=== PATIENT | female | born 1945 | race Caucasian/White ===

== ENCOUNTER 2025-06-07 15:08 | Outpatient (AMB) | payer OTHER, SELFPAY ==
--- OUTSIDE RECORDS SUMMARY | 2025-06-02 23:59 | XMS_ITS | Continuity of Care Document ---
Author Organization [facility] Address [address] [place] [address]- Care Team Providers Care Cigarette Machine Operator Name Role Phone Luis Manuel VILLANUEVA, Latoya Travis Primary Care Physici an [id number] Date(s): 05/26/[facility] - 06/02/25 [facility] [address] [place] [address]- Encounter Diagnosis Open wound of heel(Discharge Diagnosis) - 05/26/25 Wound, open, abdominal wall, anterior(Discharge Diagnosis) - 05/26/25 Sacral ulcer(Discharge Diagnosis) - 05/26/25 Attending Physician: Latoya Issa NP Encounter Type: Office Visit Allergies, Adverse Reactions, Alerts Substance Criticality Severity Reaction Reaction Severity Status Latex Active Immunizations Given and Recorded Vaccine Date Status Refusal Reason RSV vaccine preF3, recombinant 09/18/23 Recorded influenza virus vaccine, inactivated 08/15/23 Teodoro rded influenza virus vaccine, inactivated 08/06/22 Teodoro rded influenza virus vaccine, inactivated 08/12/21 Teodoro rded influenza virus vaccine, inactivated 08/15/20 Teodoro rded influenza virus vaccine, inactivated 09/21/19 Give n SARS-CoV-2(COVID-19)mRNA-LNP vac([id number]) 08/14/23 Recorded tetanus/diphtheria/pertussis, acel(Tdap) 06/11/23 Recorded pneumococcal 20-valent conjugate vaccine 04/15/23 Given [id number] 12y+ bivalent booster vax 12/29/22 Recorded SARS-CoV-2 mRNA ([id number]) vax 06/08/22 Recorded SARS-CoV-2 (COVID-19) mRNA BNT-162b2 vac 08/30/21 Recorded SARS-CoV-2 (COVID-19) mRNA BNT-162b2 vac 02/12/21 Given SARS-CoV-2 (COVID-19) mRNA BNT-162b2 vac 02/12/21 Recorded SARS-CoV-2 (COVID-19) mRNA BNT-162b2 vac 01/22/21 Given SARS-CoV-2 (COVID-19) mRNA BNT-162b2 vac 01/22/21 Recorded Influenza Virus Vaccine (oldterm) 1 08/09/20 Recor ded 1Result Comment: [facility] Medications A+D topical ointment Topically, Daily, applied to lower extremities for dry skin, Maintenance, 03/31/25 8:12:00 PM EDT, Partial fill upon patient request if the prescription is for a schedule II opioid drug. Start Date: 03/31/25 Status: Ordered Repeat number: 1 acetaminophen 325 mg oral tablet 650 mg, 2, tablet, By Mouth, 3 times a day, PRN, Temperature Greater than 100.5, # 30 tablet, Refills 0, Tot. Refills 0, Maintenance, Pain , Mild, 04/08/25 10:23:00 AM EDT, Route to Pharmacy Electronically, [facility], Partial fill upon patient request if the prescription is for a schedule II opioid drug., 153, cm, 04/08/25 4:52:00 EDT, Height, 86, kg, 03/31/25 20:34:00 EDT, Dry Weight Start Date: 04/08/25 Status: Ordered Quantity: 30.0 Unit: tablet Repeat number: 1 atorvastatin 40 mg oral tablet 1 tablet, By Mouth, Daily at bedtime, # 90 tablet, 0 Refills, Maintenance, 05/08/25 9:47:00 PM EDT, [facility], 153, cm, 05/04/25 10:14:00 EDT, Height, 78.2, kg, 05/02/25 13:36:00 EDT, Dry Weight Start Date: 05/08/25 Status: Ordered Quantity: 90.0 Unit: tablet Repeat number: 1 bumetanide 1 mg oral tablet 2 mg, 2, tablet, By Mouth, Daily, Refills 0, Maintenance, 03/14/25 1:02:00 PM EDT, Partial fill upon patient request if the prescription is for a schedule II opioid drug. Start Date: 03/14/25 Status: Ordered Repeat number: 1 collagenase topical 250 u/gm ointment 1 application, Topically, Daily, apply to right heel and right and left lower abdominal wounds, # 90 Gm, 0 Refills, Maintenance, 04/08/25 2:12:00 PM EDT, Ointment, [facility], Partial fill upon patient request if the prescription is for a schedule II opioid drug., 1 application Topically Daily,Instr:apply to right heel and right and left lower abdominal wounds, 153, cm, 04/08/25 4:52:00 EDT, Height, 86, kg, 03/31/25 20:34:00 EDT, Dry Weight Start Date: 04/08/25 Status: Ordered Quantity: 90.0 Unit: g Repeat number: 1 Dakins Quarter Strength 0.125% topical solution APPLY EXTERNALLY ONCE DAILY TO RIGHT HEEL WOUND X 10 MINUTES WITH DRESSING CHANGE Start Date: 03/31/25 Status: Ordered Repeat number: 1 digoxin 0.125 mg oral tablet 1, tablet, By Mouth, Daily at bedtime, # 90 tablet, Refills 3, Maintenance, 08/08/24 10:30:00 AM EDT, Route to Pharmacy Electronically, [facility], 158, cm, 08/01/24 12:56:00 EDT, Height, 129.6, kg, 07/05/24 18:15:00 EDT, Dry Weight Start Date: 08/08/24 Status: Ordered Quantity: 90.0 Unit: tablet Repeat number: 1 Eliquis 5 mg oral tablet 1 tablet, By Mouth, 2 times a day, # 180 tablet, 3 Refills, Maintenance, 08/08/24 10:30:00 AM EDT, [facility], 158, cm, 08/01/24 12:56:00 EDT, Height, 129.6, kg, 07/05/24 18:15:00 EDT, Dry Weight Start Date: 08/08/24 Status: Ordered Quantity: 180.0 Unit: tablet Repeat number: 1 levothyroxine 0.1 mg oral tablet 1 tablet, By Mouth, Daily, # 90 tablet, 1 Refills, Maintenance, 08/27/24 11:23:00 AM EDT, [facility], 158, cm, 08/08/24 14:24:00 EDT, Height, 129.6, kg, 07/05/24 18:15:00 EDT, Dry Weight Start Date: 08/27/24 Status: Ordered Quantity: 90.0 Unit: tablet Repeat number: 1 lisinopril 5 mg oral tablet 5 mg, 1, tablet, By Mouth, Daily, # 30 tablet, Refills 0, Maintenance, 03/31/25 8:55:00 PM EDT, Partial fill upon patient request if the prescription is for a schedule II opioid drug. Start Date: 03/31/25 Status: Ordered Quantity: 30.0 Unit: tablet Repeat number: 1 metFORMIN 850 mg oral tablet 1 tablet = 850 mg, By Mouth, Daily at supper, Maintenance, 03/31/25 8:09:00 PM EDT, Tablet, Partial fill upon patient request if the prescription is for a schedule II opioid drug. Start Date: 03/31/25 Status: Ordered Repeat number: 1 metoprolol 50 mg oral tablet, extended release 50 mg, 1, tablet, By Mouth, Daily, # 90 tablet, Refills 3, Tot. Refills 3, Maintenance, 03/18/24 9:26:00 AM EDT, Route to Pharmacy Electronically, [facility], Partial fill upon patient request if the prescription is for a schedule II opioid drug., 153, cm, 03/03/24 13:49:00 EDT, Height, 112.6, kg, 01/28/24 14:46:00 EDT, Dry Weight Start Date: 03/18/24 Status: Ordered Quantity: 90.0 Unit: tablet Repeat number: 4 omeprazole 20 mg oral enteric coated capsule 1 capsule, By Mouth, Daily, # 90 capsule, 1 Refills, Maintenance, 05/08/25 9:47:00 PM EDT, [facility], 153, cm, 05/04/25 10:14:00 EDT, Height, 78.2, kg, 05/02/25 13:36:00 EDT, Dry Weight Start Date: 05/08/25 Status: Ordered Quantity: 90.0 Unit: capsule Repeat number: 2 Vashe Topical Solution 475 mL, Topically, Daily, 0 Refills, Maintenance, Solution Start Date: 04/08/25 Status: Ordered Repeat number: 1 zinc oxide 40% topical ointment 1 application, Topically, Daily, applied by wound care nurse, Maintenance, 03/31/25 8:11:00 PM EDT, Ointment, Partial fill upon patient request if the prescription is for a schedule II opioid drug. 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 Confirmed Active Hyperlipidemia Confirmed Active Hypertensive disorder Confirmed Active Hypothyroidism Confirmed Active Hypoxia Confirmed Active Obese class I Confirmed Active Wound, open, abdominal wall, anterior Confirmed Active Open wound of heel Confirmed Active Peripheral venous insufficiency Confirmed Active Pulmonary vascular congestion Confirmed Active Sacral ulcer Confirmed Active Type 2 diabetes mellitus Confirmed Active Diagnosis Diagnosis Type Effective Dates Health Status Cl inical Service Informant Open wound of heel Discharge Diagnosis 05/26/25 Wound, open, abdominal wall, anterior Discharge Diagnosis 05/26/25 Sacral ulcer Discharge Diagnosis 05/26/25 Social History Social History Type Response Smoking Status Never (less than 100 in lifetime) entered on: 09/21/19 Sex Sex Representation Female (finding) Note * Vahid Early: PERFORM Event Display: Patient Education/Instruction Authored Date: Ambulatory Adult Visit Summary [address] [address] Name: RAHEL HERNANDEZ : 1945?? Visit: 05/26/2025 09:53?? Ambulatory Visit Instructions ?? Your Care Team Primary Care Provider Latoya Issa NP? This Visit Provider Latoya Issa NP Your Diagnosis Open wound of heel Wound, open, abdominal wall, anterior Sacral ulcer Vitals Signs Height: 153 cm What to do next Scheduled Follow-Up Appointments 2024 1:15 PM EDT ?? With: Jayda LUNDBERG, Sheila Calixto Where: [facility] [address] [address] [place] [address]- Status: Pending Future Orders Basic Metabolic Panel - Routine, Once, 09/16/24 15:24:00 EST, Within 3 Days, [facility], Blood?? Vitamin B12 Level (B12 Vitamin Level) - Routine, Once, 03/14/25 12:50:00 EDT, Order for Today, [facility], Blood?? CBC - Routine, Once, 03/14/25 12:50:00 EDT, Single or Recurring Future Order, [facility], Blood?? Comprehensive Metabolic Panel - Routine, Once, 03/14/25 12:50:00 EDT, Order for Today, [facility], Blood?? Microalbumin Urine - Routine, Once, 03/14/25 12:50:00 EDT, Order for Today, [facility], Urine?? Vitamin D 25 Hydroxy Level - Routine, Once, 03/14/25 12:51:00 EDT, Order for Today, [facility], Blood?? TSH Rfx on Abnormal to Free T4 - Routine, Once, 03/14/25 12:51:00 EDT, Order for Today, [facility], Blood?? Ferritin - Routine, Once, 03/14/25 12:52:00 EDT, Order for Today, [facility], Blood?? Iron + Iron Binding Capacity - Routine, Once, 03/14/25 12:52:00 EDT, Order for Today, [facility], Blood?? CBC - Routine, Once, 06/01/25 3:00:00 EDT, Single or Recurring Future Order, [facility], Blood?? Comprehensive Metabolic Panel - Routine, Once, 06/01/25 3:00:00 EDT, Single or Recurring Future Order, [facility], Blood?? Sedimentation Rate - Routine, Once, 06/01/25 3:00:00 EDT, Single or Recurring Future Order, [facility], Blood?? C Reactive Protein (CRP) - Routine, Once, 06/01/25 3:00:00 EDT, Single or Recurring Future Order, [facility], Blood?? Medications The list below reflects the information in our records and provided by you today along with any changes made during this visit. Please continue your medications until treatment is completed or stopped by your provider. If this is different from the information you have or there are other questions,please contact the prescribing provider. What How Much When Instructions Unchanged Acetaminophen (acetaminophen 325 mg oral tablet) 2 tab(s) Oral 3 times a day as needed for Pain , Mild Temperature Greater than 100.5 ?? Unchanged apixaban (Eliquis 5 mg oral tablet) 1 tab(s) Oral Twice a day Unchanged Atorvastatin (atorvastatin 40 mg oral tablet) 1 tab(s) Oral Daily at Bedtime Unchanged Bumetanide (bumetanide 1 mg oral tablet) 2 tab(s) Oral Daily Unchanged Collagenase Topical (collagenase topical 250 u/ gm ointment) 1 michele Topically Daily apply to right heel and right and left lower abdominal wounds ?? Unchanged Digoxin (digoxin 0.125 mg oral tablet) 1 tab(s) Oral Daily at Bedtime Unchanged Emollients, Topical (Vashe Topical Solution) 475 Milliliter Topically Daily Unchanged Levothyroxine (levothyroxine 0.1 mg oral tablet) 1 tab(s) Oral Daily Unchanged Lisinopril (lisinopril 5 mg oral tablet) 1 tab(s) Oral Daily Unchanged Metformin (metFORMIN 850 mg oral tablet) 1 tab(s) Oral Daily at supper Unchanged Metoprolol (metoprolol 50 mg oral tablet, extended release) 1 tab(s) Oral Daily Unchanged Omeprazole (omeprazole 20 mg oral enteric coated capsule) 1 capsule Oral Daily Unchanged Sodium Hypochlorite Topical (Dakins Quarter Strength 0.125% topical solution) APPLY EXTERNALLY ONCE DAILY TO RIGHT HEEL WOUND X 10 MINUTES WITH DRESSING CHANGE ?? Unchanged Vitamin A & D Topical (A+D topical ointment) Topically Daily applied to lower extremities for dry skin ?? Unchanged Zinc Oxide Topical (zinc oxide 40% topical ointment) 1 michele Topically Daily applied by wound care nurse ?? Medications and Immunizations Administered Medications Given During Visit No medications given during this visit.?? Allergies (NKA means No Known Allergies) Latex Common Emergency Awareness Tips IS IT A STROKE? Act FAST and Check for these signs: FACE Does the face look uneven? ARM Does one arm drift down? SPEECH Does their speech sound strange? TIME Call at any sign of stroke ?? Heart Attack Signs Chest discomfort: Most heart attacks involve discomfort in the center of the chest and lasts more than a few minutes, or goes away and comes back. It can feel like uncomfortable pressure, squeezing, fullness or pain. Discomfort in upper body: Symptoms can include pain or discomfort in one or both arms, back, neck, jaw or stomach. Shortness of breath: With or without discomfort. Other signs: Breaking out in a cold sweat, nausea, or lightheaded. Remember, MINUTES DO MATTER. If you experience any of these heart attack warning signs, call to get immediate medical attention! ?? Smoking can increase your chances of developing chronic health problems and can cause harmful effects to other family members in your house. If you smoke, you are strongly encouraged to quit. Please call [facility] at [phone] or [phone] ([phone]) or log in to [email or web address] for referrals to smoking cessation programs. ?? The National Suicide Prevention Hotline is available 01/06 if you or someone you know needs to find a reason to keep living. By calling 2-460-269-Kuaidi Dache (4257) you'll be connected to a skilled, trained counselor at a crisis center in your area. [facility] Portal You can view and manage your care through the patient portal or by using a health care michele of your choosing. [employer] is a website that allows you to securely view your medical information including your hospital discharge summary, office visit summaries, medications and follow-up visits. You can also request appointments, renew medications, and request access to your medical information using a health care michele of your choosing, or just ask a question. You can enroll at [email or web address] or register during your next office visit. [facility], in keeping with [facility] guidance, no longer requires face masks for staff, patientsor visitors in most situations. Similiar to time spent indoors at other locations, there is the chance that you were exposed to repiratory viruses during your time with us (such as flu or COVID-19). If you develop symptoms concerning for a viral respiratory infection, please seek testing (and treatment if indicated) from your medical provider or home test kit. ?? Disclaimer: The information provided is of a general nature and is intended to be used in conjunction with the recommendations and advice of your health care practitioner. Every effort has been made to ensure that the information provided is accurate and complete at the time it is provided to you however, as your needs change, or, as new information becomes available, different or additional instructions may be required. ?? If you have questions, please consult with your primary care provider or pharmacist, as appropriate. This information is not intended to serve as substitution for assessment and evaluation by a qualified health care provider. If you do not have a primary care provider, you may find a [facility] provider by calling [facility] at [phone]. Patient Care team information Care Team Personnel Name: Zaire Taylor RN Position: [facility] RN Supv Member Role: Primary Care Nurse Name: Verónica Mike RN Position: S RN Member Role: Primary Care Nurse Name: Carmela Staples LPN Position: [facility] RN Member Role: Primary Care Nurse Name: Jaja Chow RN Position: [facility] RN Supv Member Role: Primary Care Nurse Name: Latoya Issa NP Position: [facility] PCO Associate Professional Member Role: PCP Address: [address] [place] [address] Telecom: Name: Navid Tate Position: [facility] RN Supv Member Role: Primary Care Nurse Name: Marylin Conn RN Position: [facility] RN Member Role: Primary Care Nurse Name: Coretta Castaneda [place] Position: [facility] ZAK Digital Media Representative Member Role: Skein Washer Care Team Related Persons Name: YONY FARRAR Name: LIOR FARRAR Name: GAVINO ROSALES Insurance Providers Guarantor name: [facility] Information #: 1 Payer: [employer] ADV HMO Payer Identifier: NA Member Number: [id number] Group Number: [id number] Subscriber Identifier: [id number] Relationship to Subscriber: self Coverage Type: Medicare HMO Coverage Verification Date: Telecom: NA Address:
--- OUTSIDE RECORDS SUMMARY | 2025-06-03 23:59 | XMS_ITS | Continuity of Care Document ---
Author Organization [facility] Address [address] [place] [address]- Care Team Providers Care Switch Technician Name Role Phone Luis Manuel GEOPHYSICAL COMPUTER, Latoya Travis Primary Care Physici [id number] Date[facility]s): [facility]/04[facility]25 - 06/03/25 [facility] [address] [place] [id number] Encounter Type: Triage Allergies, Adverse Reactions, Alerts Substance Criticality Severity [...] virus vaccine, inactivated 09/21/19 Give n SARS-CoV-2(COVID-19)mRNA-LNP vac([id number]) 08/14/23 Recorded tetanus/diphtheria/pertussis, acel(Tdap) 06/11/23 Recorded pneumococcal 20-valent conjugate vaccine 04/15/23 Given [id number] 12y+ bivalent booster vax 12/29/22 Recorded SARS-CoV-2 mRNA ([id number]) vax 06/08/22 Recorded SARS-CoV-2 (COVID-19) mRNA BNT-162b2 vac 08/30/21 Recorded SARS-CoV-2 (COVID-19) mRNA BNT-162b2 vac 02/12/21 Given SARS-CoV-2 (COVID-19) mRNA BNT-162b2 vac 02/12/21 Recorded SARS-CoV-2 (COVID-19) mRNA BNT-162b2 vac 01/22/21 Given SARS-CoV-2 (COVID-19) mRNA BNT-162b2 vac 01/22/21 Recorded Influenza Virus Vaccine (oldterm) 1 08/09/20 Recor ded 1Result Comment: [facility] Medications A+D topical ointment Topically, Daily, applied [...] 10:23:00 AM EDT, Route to Pharmacy Electronically, [facility], Partial fill upon patient request if [...] Refills, Maintenance, 04/08/25 2:12:00 PM EDT, Ointment, [facility], Partial fill upon patient request if [...] 10:30:00 AM EDT, Route to Pharmacy Electronically, [facility], 158, cm, 08/01/24 12:56:00 EDT, Height, 129.6, kg, 07/05/24 18:15:00 EDT, Dry Weight Start Date: 08/08/24 Status: Ordered Quantity: 90.0 Unit: tablet Repeat number: 1 Eliquis 5 mg oral tablet 1 tablet, By Mouth, 2 times a day, # 180 tablet, 3 Refills, Maintenance, 08/08/24 10:30:00 AM EDT, [facility], 158, cm, 08/01/24 12:56:00 EDT, Height, 129.6, kg, 07/05/24 18:15:00 EDT, Dry Weight Start Date: 08/08/24 Status: Ordered Quantity: 180.0 Unit: tablet Repeat number: 1 lisinopril 5 [...] 9:26:00 AM EDT, Route to Pharmacy Electronically, [facility], Partial fill upon patient request [...] 1 Refills, Maintenance, 05/08/25 9:47:00 PM EDT, [facility], 153, cm, 05/04/25 10:14:00 EDT, [...] Active History of heart failure Confirmed Active [facility] 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 Press Operator Coretta Castaneda [phone] Confirmed Active 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 Confirmed Active Hyperlipidemia Confirmed Active Hypertensive disorder Confirmed Active Hypothyroidism Confirmed Active Hypoxia Confirmed Active Obese class I Confirmed Active Wound, open, abdominal wall, anterior Confirmed Active Open wound of heel Confirmed Active Peripheral venous insufficiency Confirmed Active Pulmonary vascular congestion Confirmed Active Sacral ulcer Confirmed Active Type 2 diabetes mellitus Confirmed Active Social History Social History Type Response Smoking Status Never (less than 100 in lifetime) entered on: 09/21/19 Sex Sex Representation Female (finding) Patient Care team information Care Team Personnel Name: Zaire Taylor RN Position: S RN Supv Member Role: Primary Care Nurse Name: Verónica Mike RN Position: S RN Member Role: Primary Care Nurse Name: Carmela Staples LPN Position: S RN Member Role: Primary Care Nurse Name: Jaja Chow RN Position: [facility] RN Supv Member Role: Primary Care Nurse Name: Latoya Issa NP Position: [facility] PCO Associate Professional Member Role: PCP Address: [address] [place] [address] Telecom: Name: Navid Tate Position: [facility] RN Supv Member Role: Primary Care Nurse Name: Marylin Conn RN Position: S RN Member Role: Primary Care Nurse Name: Coretta Castaneda [place] Position: [facility] ZAK Stamp Press Operator Member Role: Pigment Processor Care Team Related Persons Name: YONY FARRAR Name: LIOR FARRAR Name: GAVINO ROSALES Insurance Providers Guarantor name: [facility] Information #: 1 Payer: [employer] MED[employer] ADV HMO Payer Identifier: Member Number: [id number] Group Number: [id number] Subscriber Identifier: [id number] Relationship to Subscriber: self Coverage Type: Medicare HMO Coverage Verification Date: NA Telecom: NA Address:
--- NOTE | 2025-06-07 15:18 | A.OFFPC_ITS ---
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 Intake Note: patient is scheduled for new patient visit to establish care with pcp Shipping Clerk/Admin Required: No Is last menstrual period known: No Post menopausal: Yes Patient : No Allergies No Known Allergies Allergy (Verified 06/07/25 15:22) Medication List - Last Reconciled 06/07/25 by David Cabrales MD apixaban (Eliquis) 5 mg PO BID atorvastatin 40 mg PO DAILY digoxin 125 mcg PO DAILY levothyroxine 100 mcg PO DAILY lisinopril 2.5 mg PO DAILY metformin 850 mg PO BID metoprolol succinate ER 50 mg PO DAILY omeprazole 20 mg PO DAILY sodium hypochlorite 0.125% (Dakin's Solution) topical DAILY Tobacco use date assessed: 06/07/25 Fall risk assessment: 2 + Falls in past year Last assessed Fall Risk: 06/07/25 Dental Screening Dental Screen Date: 06/07/25 Did you have a dental visit in the last 12 months?: No Did you have a dental problem in the last 6 months where you did not have access to dental care?: No Was dental information given to patient?: 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 ?? Prior PCP:? Dr Spangler, Dr Crowder in [facility] but she never saw him. Last office visit/CPE:?> 1 yr ago Acute issue(s):? ?? PMHx:? Cardiac valve abnormality, a-fib, HLD, Hypothyroidism, HTN, DM2, GERD SurgHx:?Bilat Hips SocHx:?Nonsmoker. etOH Holiday x 1. [facility] Medical History (Updated 06/07/25 @ 16:07 by Natalio Uriostegui) Osteoporosis Arthritis Diabetes High blood pressure Family History (Updated 06/07/25 @ 15:38 by Del Eastman [facility] Mother High blood pressure High cholesterol Cardiovascular disease Father High blood pressure Asthma Social History Housing: House Patient Tobacco Use Status: Never used Tobacco e-Cigarette/Vaping Use: Never Used Patient : No service: No Current occupational status: retired Cognitive needs: No Hearing needs: No Vision needs: Yes Questionnaire PHQ-9 Over the last 2 weeks, how often have you been bothered by any of the following problems? 1. Little interest or pleasure in doing things: not at all 2. Feeling down, depressed, or hopeless: not at all 3. Trouble falling or staying asleep, or sleeping too much: not at all 4. Feeling tired or having little energy: not at all 5. Poor appetite or overeating: not at all 6. Feeling bad about yourself - or that you are a failure or have let yourself or your family down: not at all 7. Trouble concentrating on things, such as reading the newspaper or watching television: not at all 8. Moving or speaking so slowly that other people could have noticed. Or the opposite - being so fidgety or restless that you have been moving around a lot more than usual: not at all 9. Thoughts that you would be better off or of hurting yourself in some way: not at all Total score: 0 Depression Screening Interpretation: Negative Depression Screening Done: Yes 18859 - PHQ-9 Billing: Yes Source: Developed by Drs. Dorian Sanchez, Gloria Peraza, Rahul Dumnot and colleagues, with an educational racheal from [employer]. Thrive Questionnaire Date Thrive assessed: 06/07/25 I am a: Patient What is your living situation today?: I have a steady place to live Within the past 12 months, did the food you bought not last and you didn't have the money to get more?: Never true Within the past 12 months, did you worry whether your food would run out before you got money to buy more?: Never true Do you have trouble paying for medicines?: No Do you have trouble getting transportation to medical appointments?: No Do you have trouble paying your heating and electricity bill?: No Do you have trouble taking care of your child, family member or friend?: I choose not to answer this question Do you have trouble with day-to-day activities such as bathing, preparing meals, shopping, managing finances, etc.?: I choose not to answer this question Are you currently unemployed and looking for a job?: No Are you interested in more education?: No Please select the resources that you would like help with: None Currently or been in a relationship where the following occur: No concerns reported THRIVE Score: 0 AUDIT C Alcohol Use Questionnaire (AUDIT-C) 1. How often do you have a drink containing alcohol?: Never Total Score: 0 Score Reviewed/Action Taken: Yes SANGEETA-7 AMB Questionnaire SANGEETA-7 Date SANGEETA - 7 assessed: 06/07/25 Feeling nervous, anxious, or on edge: 0 = Not at all Not being able to stop or control worryin = Not at all Worrying too much about different things: 0 = Not at all Trouble relaxin = Not at all Being so restless that it is hard to sit still: 0 = Not at all Becoming easily annoyed or irritable: 0 = Not at all Feeling afraid as if something awful might happen: 0 = Not at all Total SANGEETA-7 score (0-4 normal; 5-9 mild; 10-14 moderate; 15-21 severe): 0 Source: Developed by Drs. Dorian Sanchez, Gloria Peraza, Rahul Dumont and colleagues, with an educational racheal from [employer]. SANGEETA-7 Assessment Billing SANGEETA-7 Assessment Tool: SANGEETA-7 Assessment 24493 Review of Systems Const Denies chills, Denies fatigue, Denies fever(s), Denies headache(s) and Denies weakness ENT Denies dizziness and Denies headache(s) Card Denies chest pain, Denies lightheadedness, Denies dyspnea and Denies other (Palpitations) Resp Denies cough, Denies dyspnea, Denies wheezing and Denies other ( shortness of breath) Musc Denies numbness and Denies tingling Neuro Denies dizziness, Denies headache(s), Denies numbness, Denies tingling, Denies paresthesias and Denies weakness Psych Denies anxiety and Denies depression Endo Denies fatigue Aller/Immun Denies wheezing Physical exam (Primary Care) Vital Signs: Last Vital Signs Temp 97.4 F 06/07/25 15:25 Pulse 95 06/07/25 15:25 Resp 14 06/07/25 15:25 BP 110/66 06/07/25 15:25 Pulse Ox 97 06/07/25 15:25 Oxygen Delivery Method Room Air 06/07/25 15:25 BMI result Body Mass Index 33.2 Tobacco/Smoking Status: Tobacco use Status Tobacco use date assessed 06/07/25 06/07/25 15:27 Patient Tobacco Use Status Never used Tobacco 06/07/25 15:27 e-Cigarette/Vaping Use Never Used 06/07/25 15:27 PHQ-9: PHQ-9 Score PHQ-9: Total score 0 06/07/25 15:27 Depression Screening Interpretation: Negative Thrive Assessment: Date of Thrive Assessment Date Thrive assessed 06/07/25 06/07/25 15:27 Currently or been in a relationship where the following occur: No concerns repor beverly Const General: no acute distress and well developed Nutritional Appearance: well nourished Orientation/consciousness: patient oriented x3 HENMT Head: Yes normocephalic and Yes atraumatic Eyes General: appearance normal, both eyes and all related structures Pupils: Equal, round and reactive pupils present EOM: EOMs intact bilaterally Resp Effort & Inspection: normal respiratory effort Auscultation: clear to auscultation bilaterally Cardio Rate: regular rate Rhythm: regular rhythm Heart sounds: S1 normal heart sound present, S2 normal heart sound present, no gallops, no murmurs and no rubs Neuro General: patient oriented x3 and gait normal Cranial nerves: Yes Equal, round and reactive pupils present Psych Affect: normal affect Coding Level of Care Code New Pt Level 3 (92700) Diagnoses High blood pressure I10 Diabetes E11.9 Hypothyroidism E03.9 GERD (gastroesophageal reflux disease) K21.9 Abnormal cardiac valve Q24.8 Afib I48.91 Laboratory exam ordered as part of routine general medical examination Z00.00 Additional Codes SANGEETA-7 Assessment Billing - SANGEETA-7 Assessment Tool: SANGEETA-7 Assessment 04447 ([id number]) PHQ-9 - 09800 - PHQ-9 Billing: Yes ([id number]) Assessment & Plan Assessment & Plan (1) High blood pressure: Code(s): I10 - Essential (primary) hypertension Category: Medical Plan: Blood pressure is well controlled. Goal is less than 140/90 Continue current medications (2) Diabetes: Code(s): E11.9 - Type 2 diabetes mellitus without complications Category: Medical Plan: A1c today 7.6%. She says her A1c was 6.5% about 6 months ago. Goal is around 7% and preferably as below 7%. She had stopped taking 1 of her doses of metformin She will resume metformin 850 mg b.i.d. if tolerated. Will recheck A1c at next visit (3) Hypothyroidism: Code(s): E03.9 - Hypothyroidism, unspecified Category: Medical Plan: She is taking levothyroxine 100 mcg daily. However, she says that she was given a new slightly higher dose which she has not begun yet. She was not sure of the exact dose. She says this was due to recent lab work showing that her thyroid hormone levels were all at a low. 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 She is on Eliquis and digoxin as well as metoprolol. She also says that she has a cardiac valve abnormality though she does not know what the diagnosis is. I do not have her records yet and will request these. Followed by Dr. Glass Continue medications as prescribed Follow-up with your it risk analyst Orders: Orders Comprehensive Gleason. Panel Fast Today Z00.00 - Encounter for general adult medical examination without abnormal findings Complete Blood Count Auto Diff Today Z00.00 - Encounter for general adult medical examination without abnormal findings UA CC w/rflx Micro + Cult Today Z00.00 - Encounter for general adult medical examination without abnormal findings Vitamin D 25-OH Total Today E55.9 - Vitamin D deficiency, unspecified Free T4 (Free Thyroxine) Today E03.9 - Hypothyroidism, unspecified LDL Cholesterol Direct Today E78.5 - Hyperlipidemia, unspecified Lipid Panel Today Z00.00 - Encounter for general adult medical examination without abnormal findings Microalbumin, Random (w Creat) Today I10 - Essential (primary) hypertension Vitamin B12 and Folate Today E53.8 - Deficiency of other specified B group vitamins Triiodothyronine T3 Total Today E03.9 - Hypothyroidism, unspecified Thyroid Stimulating Hormone Today E03.9 - Hypothyroidism, unspecified
[2025-06-07 15:25] VITALS: BP 110/66; PULSE 95; RESP 14; TEMP 36.3; O2SAT 97; BMI 33.2
--- OUTSIDE RECORDS SUMMARY | 2025-06-07 15:52 | XMS_ITS | Encounter Summary ---
Author Organization [id number] Address [address] [place] [address] Care Team Providers Care Media Services Coordinator Name Role Phone Stephanie Salas MD Primary Care Provider Encounter Details Date Type Department Care Team (Late st Contact Info) Description 02/10/2025 Lab Requisition [facility] - Main Lab [address] [place] [address] Jim Dominique MD [address] [place] [address] [address] [place], [address] Type 2 diabetes mellitus without complications (CMS/HCC V24, CMS/HCC V28); Heart failure, unspecified (CMS/HCC V24, CMS/HCC V28) Social History Tobacco Use Types Packs/Day Years Used Date Smoking Tobacco: Never Assessed Comments Unknown Sex and Gender Information Value Date Recorded Sex Assigned at Not on file Legal Sex Female 3:39 PM EDT Gender Identity Not on file Sexual Orientation Not on file documented as of this encounter Plan of Treatment Not on file documented as of this encounter Procedures Procedure Name Priority Date/Time Associated Diagnosis Comments COMPLETE BLOOD COUNT Routine 02/13/2025 6:29 AM EDT Type 2 diabetes mellitus without complications Heart failure, unspecified (CMS/HCC) BASIC METABOLIC PANEL Routine 02/13/2025 6:29 AM EDT Type 2 diabetes mellitus without complications Heart failure, unspecified (CMS/HCC) documented in this encounter Results * (ABNORMAL) Basic metabolic panel (02/13/2025 6:29 AM EDT) Sodium 137 133 - 145 mmol/L LAB CHEMISTRY METHOD 02/13/2025 10:36 AM EDT [facility] Potassium 3.6 3.5 - 5.5 mmol/L LAB CHEMISTRY METHOD 02/13/2025 10:36 AM [facility] Chloride 98 96 - 110 mmol/L LAB CHEMISTRY METHOD 02/13/2025 10:36 AM [facility] CO2 28 21 - 32 mmol/L LAB CHEMISTRY METHOD 02/13/2025 10:36 AM [facility] Anion Gap 11 3 - 11 LAB CHEMISTRY METHOD 02/13/2025 10:36 AM [facility] Glucose 110(H) 70 - 100 mg/dL LAB CHEMISTRY METHOD 02/13/2025 10:36 AM [facility] BUN 32(H) 5 - 25 mg/dL LAB CHEMISTRY METHOD 02/13/2025 10:36 AM [facility] Creatinine 0.67 0.50 - 1.10 mg/dL LAB CHEMISTRY METHOD 02/13/2025 10:36 AM [facility] eGFR 90 >=60 mL/min/1. 73m2 LAB CHEMISTRY METHOD 02/13/2025 10:36 AM [facility] Comment:Calculation based on the Chronic Kidney Disease Epidemiology Collaboration (CKD-EPI) equation refit without adjustment for race. BUN/Creatinine Ratio 47.8 LAB CHEMISTRY METHOD 02/13/2025 10:36 AM [facility] Calcium 8.9 8.5 - 10.5 mg/dL LAB CHEMISTRY METHOD 02/13/2025 10:36 AM [facility] Blood Venous blood specimen / Unknown Venipuncture / Unknown 02/13/2025 6:29 AM EDT 02/13/2025 9:54 AM EDT us Jim Dominique MD LAB BLOOD ORDERABLES Final Resul t [facility] [address] [place] [address], * (ABNORMAL) Complete blood count (02/13/2025 6:29 AM EDT) [facility] WBC 10.7 4.8 - 10.8 K/mcL LAB HEMETOLOGY METHOD 02/13/2025 10:07 AM [facility] RBC 3.50(L) 3.80 - 4.80 M/mcL LAB HEMETOLOGY METHOD 02/13/2025 10:07 AM [facility] Hemoglobin 10.8(L) 11.5 - 16.0 g/dL LAB HEMETOLOGY METHOD 02/13/2025 10:07 AM [facility] Hematocrit 34.4(L) 35.0 - 47.0 % LAB HEMETOLOGY METHOD 02/13/2025 10:07 AM [facility] MCV 97.7 79.0 - 98.0 FL LAB HEMETOLOGY METHOD 02/13/2025 10:07 AM [facility] MCH 30.7 27.0 - 32.0 pcg LAB HEMETOLOGY METHOD 02/13/2025 10:07 AM [facility] MCHC 31.4(L) 32.0 - 37.0 g/dL LAB HEMETOLOGY METHOD 02/13/2025 10:07 AM [facility] RDW 16.5(H) 11.0 - 15.0 % LAB HEMETOLOGY METHOD 02/13/2025 10:07 AM [facility] Platelets 361 130 - 400 K/mcL LAB HEMETOLOGY METHOD 02/13/2025 10:07 AM [facility] MPV 11.3(H) 7.0 - 11.0 FL LAB HEMETOLOGY METHOD 02/13/2025 10:07 AM [facility] NRBC 0.0 <1.0 % LAB HEMETOLOGY METHOD 02/13/2025 10:07 AM EDT [facility] NRBC Absolute 0.00 <0.10 K/mcL LAB HEMETOLOGY METHOD 02/13/2025 10:07 AM EDT [facility] Blood Venous blood specimen / Unknown Venipuncture / Unknown 02/13/2025 6:29 AM EDT 02/13/2025 9:54 AM EDT us Jim Dominique MD LAB BLOOD ORDERABLES Final Resul t [facility] [address] [place] [address], documented in this encounter Visit Diagnoses Diagnosis Type 2 diabetes mellitus without complications (CMS/HCC V24, CMS/HCC V28) Heart failure, unspecified (CMS/HCC V24, CMS/HCC V28) Heart failure, unspecified documented in this encounter Care Teams Media Services Coordinator Relationship Specialty Start Date End Date Stephanie Salas MD [address] [place] [id number] PCP - General Hospitalist Medicine 10/10/24 documented as of this encounter
--- OUTSIDE RECORDS SUMMARY | 2025-06-07 15:52 | XMS_ITS | Clinical Summary ---
Author Organization [facility] Address [address] [place] [address] Care Team Providers Care Ladies Locker Room Attendant Name Role Phone Unavailable Primary Care Provider Unavailabl e Social History Tobacco Use Types Packs/Day Years Used Date Smoking Tobacco: Never Assessed Sex and Gender Information Value Date Recorded Sex Assigned at Not on file Gender Identity Not on file Sexual Orientation Not on file Plan of Treatment Not on file
--- OUTSIDE RECORDS SUMMARY | 2025-06-07 15:53 | XMS_ITS | Clinical Summary ---
Author Organization [facility] Address [address] [place] [address] Care Team Providers Care Music Therapy Specialist Name Role Phone Unavailable Primary Care Provider Unavailabl e Social History Tobacco Use Types Packs/Day Years Used Date Smoking Tobacco: Never Assessed Comments Unknown Sex and Gender Information Value Date Recorded Sex Assigned at Not on file Legal Sex Female 2:40 PM EDT Gender Identity Not on file Sexual Orientation Not on file Plan of Treatment Health Maintenance Due Date Last Done Comments Hepatitis C Virus Screening 1945 DTaP/Tdap/Td Vaccines (1 - Tdap) 1966 Pneumococcal Vaccines 50+ (1 of 1 - PCV) 1997 Zoster (Shingles) Vaccine (1 of 2) 1997 RSV Vaccine 60 years and old er and Patients (1 - 1-dose 75+ series) 2022 COVID-19 Vaccine ( - 2023-2 5 season) 2024 Hepatitis B Vaccines Aged Out No long er eligible based on patient's age to complete this topic
--- OUTSIDE RECORDS SUMMARY | 2025-06-07 15:53 | XMS_ITS | Patient Health Record ---
Author Organization [facility] Address [address] [facility] [address] [place] [address] Care Team Providers Care Stonemason Name Role Phone Anitha NAGEL-Latoya Pereyra Primary Care Provid er Unavailable Imani Gaston Unavailable [phone] Dorota Fonseca Unavailable [phone] Marco Gonzalez Unavailable [phone] Allergies Allergen (clinical drug ingredient) Drug/Non Drug Allergy documented on EMR Reaction Allergy Type Onset Date Status Latex Latex Unknown Allergy Active Reason For Referral No Information Medications Medication SIG (Take, Route, Frequency, Duration) Notes Start Date End Date Status Santyl 250 UNIT/GM 1 application Externally Once a day; Duration: 30 days apply nickel thick layer to L abdominal wound daily wound size is 5x12.5x0.8 05/15/2025 09/11/2025 Active Levothyroxine Sodium 100 MCG 1 tablet Orally in the morning 01/18/2025 Active InterDry 10 x144 - as directed Externally daily; Duration: 28 days apply daily under abdominal fold Active Lisinopril 5 MG 1 tablet Orally Once a day 02/02/2025 Active Digoxin 125 MCG 1 tablet Orally Once a day 01/17/2025 Active metFORMIN HCl 850 MG 1 tablet Orally Onc e a day 01/17/2025 Active Acetaminophen 500 MG 2 tablets Orally 3 times a day 02/03/2025 Active Metoprolol Tartrate 50 MG 1 tablet Orally once a day 01/18/2025 Active Acetaminophen 325 MG 2 tablets Orally every 8 hrs As needed 02/01/2025 Active Multi-Vitamin/Minerals - 1 tablet Orally once a day 01/24/2025 Active Apixaban 5 MG 1 tablet Orally twice a day 01/17/2025 Active Omeprazole 20 MG 1 tablet Orally Once a day 01/18/2025 Active Atorvastatin Calcium 40 MG 1 tablet Orally at bedtime 01/17/2025 Active Senna 8.6 MG 1 tablet Orally Once a day As needed 01/17/2025 Active Bisacodyl 10 MG 1 suppository Rectal Once a day As needed 01/17/2025 Active Vitamin C 500 MG 1 tablet Orally Every other day 01/24/2025 Active Dakins (1/2 strength) 0.25 % 1 application Externally Once a day; Duration: 30 days apply dakins moistened gauze over santyl on L abdominal wound f/b DCDdaily 05/15/2025 07/14/2025 Active Bumetanide 1 MG 1 tablet Orally twice a day 01/17/2025 Active Diclofenac Sodium 1 % apply to left hip Externally twice a day 02/01/2025 Active Problems Problem Type SNOMED Code ICD Code Onset Dates Problem Status W/U Status Risk Notes Problem Skin ulcer associated with diabetes mellitus (868101196) 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) Active confirmed Problem Atrial fibrillation (79853930) Unspecified atrial fibrillation (I48.91) Active confirmed Problem Diastolic heart failure (887006757) Unspecified diastolic (congestive) heart failure (I50.30) Active confirmed Problem Peripheral vascular disease (629346097) Peripheral vascular disease, unspecified (I73.9) Active confirmed Problem Pressure injury of sacral region of back stage III (disorder) (69746500719004) Pressure ulcer of sacral region, stage 3 (L89.153) Active confirmed Problem Pressure injury of right buttock stage III (disorder) (55486196710162) Pressure ulcer of right buttock, stage 3 (L89.313) Active confirmed Problem Pressure injury of left buttock stage IV (disorder) (57186533735197) Pressure ulcer of left buttock, 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) Active confirmed Problem Unstageable pressure injury of right heel (disorder) (02794330880662288) Pressure ulcer of right heel, unstageable (L89.610) Active confirmed Problem Pressure injury of right heel stage IV (disorder) (45306063824689) Pressure ulcer of right heel, stage 4 (L89.614) Active confirmed Problem Chronic ulcer of lower extremity (14595803) Non-pressure chronic ulcer of other part of right lower leg limited to breakdown of skin (L97.811) Active confirmed Problem Chronic ulcer of skin of lower leg (disorder) (93512524095260539) Non-pressure chronic ulcer of other part of left lower leg limited to breakdown of skin (L97.821) Active confirmed Problem Non-pressure chronic ulcer of back with unspecified severity (L98.429) Active confirmed Problem Osteomyelitis of vertebra (060914037) Osteomyelitis of vertebra, sacral and sacrococcygeal region (M46.28) Active confirmed Problem Abnormal gait (46912219) Unsteadiness on feet (R26.81) Active confirmed Problem Weakness (02519871) Weakness (R53.1) Active con firmed Problem Abrasion of abdominal wall, subsequent encounter (S30.811D) Active confirmed Problem Unspecified open wound of left wrist, initial encounter (S61.036A) Active confirmed Problem Body mass index 40+ - severely obese (745022887) Body mass index [BMI] 40.0-44.9, adult (Z68.41) Active confirmed Problem Peripheral vascular disease (952304950) Peripheral vascular disease (I73.9) Active confirmed Problem Pressure injury, stage 3, unspecified location (L89.93) 05/08/20 25 Active confirmed Problem Venous insufficiency of leg (disorder) (749144809) Venous insufficiency (I87.2) Active confirmed Problem Gastroesophageal reflux disease (054367104) GERD (gastroesophageal reflux disease) (K21.9) Active confirmed Problem Hyperlipidemia (57023791) Hyperlipidemia (E78.5) Active confirmed Problem Obesity (161385606) Obesity (E66.9) Active conf irmed Problem Edema (85067621) Edema (R60.9) Active confirmed Problem Localized infection of skin AND/OR subcutaneous tissue (276444857) Local infection of skin and subcutaneous tissue (L08.9) Active confirmed Problem Dependence on wheelchair (220970336) Wheelchair 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) Active confirmed Problem Hypothyroidism (17800010) Hypothyroidism (E03.9) Active confirmed Problem Type 2 diabetes mellitus (40780528) Type 2 diabetes mellitus (E11.9) Active confirmed Vital Signs Heart Rate 76 /min 05/29/2025 Temperature 98.6 degrees Fahrenheit 05/29/2025 Respiratory Rate 18 /min 05/29/2025 Height-cm 152.4 cm 05/29/2025 Oximetry 96 % 05/29/2025 Blood pressure diastolic 82 mm Hg 05/29/2025 Weight-kg 78.93 kg 05/29/2025 Height 60 in 05/29/2025 Blood pressure systolic 138 mm Hg 05/29/2025 Weight 174 lbs 05/29/2025 BMI 33.98 kg/m2 05/29/2025 Encounters Encounter Location Date Provider Diagnosis [facility] [address] [address] 12/21/2024 Anzhela Savonina Pressure ulcer of right heel, unstageable L89.610 ; Pressure ulcer of left buttock, stage 4 L89.324 ; Type 2 diabetes mellitus with other skin ulcer E11.622 ; Wheelchair dependence Z99.3 ; Obesity E66.9 and Edema R60.[address] [facility] [address] [facility] [address] [place] [address] 01/10/2025 Anzhela Savonina Pressure ulcer of right heel, unstageable L89.610 ; Pressure ulcer of left buttock, stage 4 L89.324 ; Local infection of skin and subcutaneous tissue L08.9 ; Type 2 diabetes mellitus with other skin ulcer E11.622 ; Non-pressure chronic ulcer of other part of right lower leg limited to breakdown of skin L97.811 ; Non-pressure chronic ulcer of other part of left lower leg limited to breakdown of skin L97.821 ; Pressure ulcer of right buttock, stage 3 L89.313 ; Wheelchair dependence Z99.3 ; Venous insufficiency I87.2 ; Peripheral vascular disease I73.9 ; Obesity E66.9 ; Edema R60.[address] [facility] [address] [place] [address] 01/31/2025 Imani Gaston Pressure ulcer of right heel, stage 4 L89.614 ; Pressure ulcer of left buttock, stage 4 L89.324 ; Local infection of skin and subcutaneous tissue L08.9 ; Type 2 diabetes mellitus with other skin ulcer E11.622 ; Non-pressure chronic ulcer of other part of right lower leg limited to breakdown of skin L97.811 ; Non-pressure chronic ulcer of other part of left lower leg limited to breakdown of skin L97.821 ; Pressure ulcer of right buttock, stage 3 L89.313 ; Wheelchair dependence Z99.3 ; Venous insufficiency I87.2 ; Peripheral vascular disease I73.9 ; Obesity E66.9 ; Edema R60.9 ; Weakness R53.1 ; Pressure ulcer of sacral region, stage 3 L89.153 and Unspecified open wound of left wrist, initial encounter S61.502A [facility] [address] [place] [address] 2025 Imani Gaston Pressure ulcer of right heel, stage 4 L89.614 ; Pressure ulcer of left buttock, stage 4 L89.324 ; Local infection of skin and subcutaneous tissue L08.9 ; Type 2 diabetes mellitus with other skin ulcer E11.622 ; Non-pressure chronic ulcer of other part of right lower leg limited to breakdown of skin L97.811 ; Non-pressure chronic ulcer of other part of left lower leg limited to breakdown of skin L97.821 ; Pressure ulcer of right buttock, stage 3 L89.313 ; Wheelchair dependence Z99.3 ; Venous insufficiency I87.2 ; Peripheral vascular disease I73.9 ; Obesity E66.9 ; Edema R60.9 ; Weakness R53.1 and Pressure ulcer of sacral region, stage 3 L89.153 [facility] [address] [address] 03/15/2025 Imani Gaston Pressure ulcer of left buttock, stage 4 L89.324 ; Pressure ulcer of right heel, stage 4 L89.614 ; Local infection of skin and subcutaneous tissue L08.9 ; Type 2 diabetes mellitus with other skin ulcer E11.622 ; Wheelchair dependence Z99.3 ; Venous insufficiency I87.2 ; Peripheral vascular disease I73.9 ; Obesity E66.9 ; Edema R60.9 ; Weakness R53.1 and Pressure ulcer of sacral region, stage 3 L89.153 [facility] [address] [address] 03/22/2025 Imani Gaston Pressure ulcer of left buttock, stage 4 L89.324 ; Pressure ulcer of right heel, stage 4 L89.614 ; Local infection of skin and subcutaneous tissue L08.9 ; Type 2 diabetes mellitus with other skin ulcer E11.622 ; Wheelchair dependence Z99.3 ; Venous insufficiency I87.2 ; Peripheral vascular disease I73.9 ; Obesity E66.9 ; Edema R60.9 ; Weakness R53.1 and Abrasion of abdominal wall, subsequent encounter S30.811D [facility] [address] [address] 03/29/2025 Imanidarby Gaston Pressure ulcer of left buttock, stage 4 L89.324 ; Osteomyelitis of vertebra, sacral and sacrococcygeal region M46.28 ; Pressure ulcer of right heel, stage 4 L89.614 ; Local infection of skin and subcutaneous tissue L08.9 ; Type 2 diabetes mellitus with other skin ulcer E11.622 ; Wheelchair dependence Z99.3 ; Venous insufficiency I87.2 ; Peripheral vascular disease I73.9 ; Obesity E66.9 ; Edema R60.9 ; Weakness R53.1 and Abrasion of abdominal wall, subsequent encounter S30.811D [facility] [address] [address] 04/17/2025 Imanidarby Gaston Pressure ulcer of left buttock, stage 4 L89.324 ; Osteomyelitis of vertebra, sacral and sacrococcygeal region M46.28 ; Pressure ulcer of right heel, stage 4 L89.614 ; Local infection of skin and subcutaneous tissue L08.9 ; Type 2 diabetes mellitus with other skin ulcer E11.622 ; Wheelchair dependence Z99.3 ; Venous insufficiency I87.2 ; Peripheral vascular disease I73.9 ; Obesity E66.9 ; Edema R60.9 ; Weakness R53.1 and Abrasion of abdominal wall, subsequent encounter S30.811D [facility] [address] [address] 05/08/2025 Imanidarby Gaston Pressure ulcer of left buttock, stage 4 L89.324 ; Osteomyelitis of vertebra, sacral and sacrococcygeal region M46.28 ; Pressure ulcer of right heel, stage 4 L89.614 ; Local infection of skin and subcutaneous tissue L08.9 ; Type 2 diabetes mellitus with other skin ulcer E11.622 ; Wheelchair dependence Z99.3 ; Venous insufficiency I87.2 ; Peripheral vascular disease I73.9 ; Obesity E66.9 ; Edema R60.9 ; Weakness R53.1 ; Abrasion of abdominal wall, subsequent encounter S30.811D and Pressure injury, stage 3, unspecified location L89.[address] [facility] [address] [address] 05/15/2025 Imani Marilin Pressure ulcer of left buttock, stage 4 L89.324 ; Osteomyelitis of vertebra, sacral and sacrococcygeal region M46.28 ; Pressure ulcer of right heel, stage 4 L89.614 ; Local infection of skin and subcutaneous tissue L08.9 ; Type 2 diabetes mellitus with other skin ulcer E11.622 ; Wheelchair dependence Z99.3 ; Venous insufficiency I87.2 ; Peripheral vascular disease I73.9 ; Obesity E66.9 ; Edema R60.9 ; Weakness R53.1 ; Abrasion of abdominal wall, subsequent encounter S30.811D and Pressure injury, stage 3, unspecified location L89.[address] [facility] [address] [address] 05/29/2025 Imani Gaston Pressure ulcer of left buttock, stage 4 L89.324 ; Osteomyelitis of vertebra, sacral and sacrococcygeal region M46.28 ; Pressure ulcer of right heel, stage 4 L89.614 ; Local infection of skin and subcutaneous tissue L08.9 ; Type 2 diabetes mellitus with other skin ulcer E11.622 ; Wheelchair dependence Z99.3 ; Venous insufficiency I87.2 ; Peripheral vascular disease I73.9 ; Obesity E66.9 ; Edema R60.9 ; Weakness R53.1 ; Abrasion of abdominal wall, subsequent encounter S30.811D and Pressure injury, stage 3, unspecified location L89.[address] [facility] [address] [address] 03/30/2025 Imani [facility] [address] [address] 05/11/2025 Imani [facility] [address] [facility] [address] [place] [address] 12/16/2024 Marco Gonzalez [facility] [address] [address] 12/19/2024 Marco Gonzalez [facility] [address] [place] [address] 12/21/2024 Marco Gonzalez [facility] [address] [place] [address] 12/23/2024 Marco Gonzalez [facility] [address] [email or web address] [address] [place] [address] 01/02/2025 Marco Gonzalez [facility] [address] [place] [address] 01/04/2025 Marco Gonzalez [facility] [address] [place] [address] 01/04/2025 Anzhela Savonina [facility] [address] [place] [address] 01/10/2025 Anzhela Savonina [facility] [address] [place] [address] 01/10/2025 [facility] [address] [place] [address] 01/12/2025 Anzhela Savonina [facility] [address] [place] [address] 03/16/2025 Anzhela Savonina [facility] [address] [place] [address] 03/22/2025 Anzhela Savonina [facility] [address] [place] [address] 03/24/2025 Anzhela Savonina [facility] [address] [place] [address] 03/29/2025 Imani [place] [facility] [address] [place] [address] 04/17/2025 Imani [place] [facility] [address] [address] 04/25/2025 Imani Gaston [facility] [address] [place] [address] 04/26/2025 Imani Gaston [facility] [address] [place] [address] 05/01/2025 Imani Gaston Assessments Encounter Date Diagnosis (ICD Code) Assessment Notes Treatment Notes Treatment Clinical Notes Section Notes 12/21/2024 Pressure ulcer of left buttock, stage 4 (ICD-10 - L89.324) 12/21/2024 Pressure ulcer of right heel, unstageable (ICD-10 - L89.610) On exam, vital signs stable, afebrile, non-ill appearing, sitting in wheelchair, A&Ox3. I first examine the right heel unstageable pressure ulcer which is covered with firm eschar tissue, loose eschar tissue on the edges with purulent drainge, mild odor, no surrounding erythema, no warmth, no tenderness. I discussed the indication for debridement and she was agreeable to procedure. I performed debridement of the ulcer as outlined above. Ulcer was cleaned with Dakins, rinsed with saline and HFB was applied to the wound bed, zinc to periwound secured with dsd. I than examined the left buttock which is a stage 4 pressure ulcer with depth of 7+ CM, bone is close to surface however I believe it does still have a layer of tissue over it. Unable to visualize the wound bed however what I can visualize has granulated tissue with overlying slough, no surrounding erythema, no purulence, no odor. I performed debridement of this ulcer, cleaned with saline and HFB was applied to the wound bed, zinc to periwound secured with dsd. She tolerated the procedure well. Anna presents today for initial visit for treatment of a right heel unstageable pressure ulcer and a stage 4 pressure ulcer to the left buttock. She has no acute signs of infectious process today. I will begin Dakins soak for 10 minutes to both ulcers, rinse with saline, apply HFB to the wound bed, zinc to periwound secure with dsd. I discussed application of a wound vac to the left buttock and she was agreeable, I will order for VNA to begin therapy. I will order ABIs to evaluate her arterial flow. She requires a hospital bed with low air loss mattress as she is not able to get into her bed and is sitting on her buttocks most of the day/night which hinders wound healing. I will request OT evaluation. I had a lengthy discussion regarding the importance of pressure relief, frequent repositioning, floating heels, importance of high protein intake, tight glucose control. VNA will continue to assist with dressing changes 3 times weekly. Patient can not do weekly visits and requesting bi-weekly at this time. I spent 65 minutes of direct and indirect care of this patient reviewing records, gathering H&P, evaluation, formulating plan, education and documentation. I Dorota NAGEL-Roddy, examined, evaluated and treated the patient. Dr. Lorena Hernandez was available for any question or concerns that I may have had. 01/10/2025 Pressure ulcer of left buttock, stage 4 (ICD-10 - L89.324) 01/10/2025 Pressure ulcer of right heel, unstageable (ICD-10 - L89.610) On exam, vital signs stable, afebrile, laying in chair, A/Ox3, weak and deconditioned, requiring 2 person assistance to transfer from wheelchair into chair for evaluation. I first examine the right heel unstageable pressure ulcer which is covered with moist eschar tissue, loose eschar tissue on the edges with purulent drainge, malodorous, no surrounding erythema, no warmth, tender to touch. I discussed the indication for debridement and she was agreeable to procedure. I performed debridement of the ulcer as outlined above, cleaned the ulcer with saline and obtained a wound culture. Ulcer was covered with Dakins imed gauze followed by DSD. I than examined the bilateral legs. She has scattered superifical ruptured and intact blisters on BLE with surrounding mild erythema, weeping serous drainage, pitting edema +4. We cleaned the legs with saline and zinc was applied followed by dsd. I than examined the left buttock which is a stage 4 pressure ulcer with depth of 5 cm, bone is close to surface and new tunneling is present. Unable to visualize the wound bed however what I can visualize has granulated tissue with overlying slough, no surrounding erythema, no purulence, mild odor. She has 2 new stage 3 pressure ulcers on the left medial buttock and left lower buttock in the gluteal fold. There is old adherent stool noted around the rectum. I performed debridement of this ulcer, cleaned with saline and Aquacel ag was applied to the wound bed, zinc to periwound secured with dsd. She tolerated the procedure well. Anna presents today for a follow up visit for treatment of multiple pressure ulcers and new wounds on BLE and new stage 3 pressure ulcers on the buttocks as noted above. She is a complicated case due to her deconditioned state requiring assistance with all ADLs, multiple wounds, poor PO intake, and inability to monitor her blood sugars. The left heel is covered with moist malodorous eschar tissue with signs of infection for which a wound culture was obtained today. She has increasesd weeping in BLE with pitting edema, scattered superifical wounds with some intact blistering on BLE. She has deconditioned from last visit. She does not have the appropriate care at home and is sleeping in a wheelchair. She has poor nutrition. She developed new ulcers and previous ulcers are detoriating with signs of infection. Both the left heel and right buttock wounds are close to bone and I would like to obtain a CT scan however due to patients weakness and trouble with tranportation, this is not feasible to obtain outpatient. I am concerned for infection and concerned with her living condition and lack of assistance with ADLS. I had a lengthy discussion with patient regarding my concerns and strongly advised the patient to go to the hospital. She adamently refused to go to the hospital today however did state that she will go tomorrow. Her friend Robles who is present in the room has also tried to convince the patient however was unsuccessful. She does need labs, CT scan of the left buttock and right heel ulcers to rule out osteomyelitis and antibiotics. We obtained ABIs today revealing moderate PAD right 0.74 and left 0.78, TBI right 0.58 and left 0.20. I discussed the findings with patient. She will need a vascular consult either while in the hospital or outpatient. I will hold off on the wound vac for concern for infection. I had previously requested PT and OT, unclear if this was done. I have all spoke with her VNA services who voiced concern with her living condition and deterioration with her wounds, strongly recommending patient goes to the hospital for more acute care. At this time, it is in the best interest of the patient to be hospitalized which she is agreeable to do tomorrow. I will defer antibiotics at this time. I will contact patient tomorrow to follow up. I spent 75 minutes of direct and indirect care of this patient reviewing records, gathering H&P, evaluation, formulating plan, education and documentation. I Dorota NAGEL-C, examined, evaluated and treated the patient. Dr. Lorena Hernandez was available for any question or concerns that I may have had. 01/31/2025 Pressure ulcer of left buttock, stage 4 (ICD-10 - L89.324) 01/31/2025 Pressure ulcer of right heel, stage 4 (ICD-10 - L89.614) 2025 Pressure ulcer of left buttock, stage 4 (ICD-10 - L89.324) 2025 Pressure ulcer of right heel, stage 4 (ICD-10 - L89.614) 03/15/2025 Pressure ulcer of left buttock, stage 4 (ICD-10 - L89.324) 03/22/2025 Pressure ulcer of left buttock, stage 4 (ICD-10 - L89.324) 03/29/2025 Pressure ulcer of left buttock, stage 4 (ICD-10 - L89.324) 03/29/2025 Osteomyelitis of vertebra, sacral and sacrococcygeal region (ICD-10 - M46.28) 04/17/2025 Pressure ulcer of left buttock, stage 4 (ICD-10 - L89.324) 05/08/2025 Pressure ulcer of left buttock, stage 4 (ICD-10 - L89.324) 05/15/2025 Pressure ulcer of left buttock, stage 4 (ICD-10 - L89.324) 05/29/2025 Pressure ulcer of left buttock, stage 4 (ICD-10 - L89.324) 05/29/2025 Osteomyelitis of vertebra, sacral and sacrococcygeal region (ICD-10 - M46.28) 05/15/2025 Osteomyelitis of vertebra, sacral and sacrococcygeal region (ICD-10 - M46.28) 05/08/2025 Pressure ulcer of right heel, stage 4 (ICD-10 - L89.614) 05/08/2025 Osteomyelitis of vertebra, sacral and sacrococcygeal region (ICD-10 - M46.28) 04/17/2025 Osteomyelitis of vertebra, sacral and sacrococcygeal region (ICD-10 - M46.28) 03/29/2025 Pressure ulcer of right heel, stage 4 (ICD-10 - L89.614) 03/22/2025 Local infection of skin and subcutaneous tissue (ICD-10 - L08.9) 03/22/2025 Pressure ulcer of right heel, stage 4 (ICD-10 - L89.614) 03/15/2025 Pressure ulcer of right heel, stage 4 (ICD-10 - L89.614) 03/15/2025 Local infection of skin and subcutaneous tissue (ICD-10 - L08.9) 2025 Local infection of skin and subcutaneous tissue (ICD-10 - L08.9) 01/31/2025 Local infection of skin and subcutaneous tissue (ICD-10 - L08.9) 12/21/2024 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) 01/10/2025 Local infection of skin and subcutaneous tissue (ICD-10 - L08.9) 12/21/2024 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) 01/10/2025 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) 01/31/2025 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) 2025 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) 03/15/2025 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) 03/22/2025 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) 04/17/2025 Pressure ulcer of right heel, stage 4 (ICD-10 - L89.614) 03/29/2025 Local infection of skin and subcutaneous tissue (ICD-10 - L08.9) 05/15/2025 Pressure ulcer of right heel, stage 4 (ICD-10 - L89.614) 05/08/2025 Local infection of skin and subcutaneous tissue (ICD-10 - L08.9) 05/29/2025 Pressure ulcer of right heel, stage 4 (ICD-10 - L89.614) 05/15/2025 Local infection of skin and subcutaneous tissue (ICD-10 - L08.9) 05/29/2025 Local infection of skin and subcutaneous tissue (ICD-10 - L08.9) 05/08/2025 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) 04/17/2025 Local infection of skin and subcutaneous tissue (ICD-10 - L08.9) 03/22/2025 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) 03/29/2025 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) 03/15/2025 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) 01/31/2025 Non-pressure chronic ulcer of other part of right lower leg limited to breakdown of skin (ICD-10 - L97.811) 2025 Non-pressure chronic ulcer of other part of right lower leg limited to breakdown of skin (ICD-10 - L97.811) 01/10/2025 Non-pressure chronic ulcer of other part of right lower leg limited to breakdown of skin (ICD-10 - L97.811) 12/21/2024 Obesity (ICD-10 - E66.9) 12/21/2024 Edema (ICD-10 - R60.9) 01/10/2025 Non-pressure chronic ulcer of other part of left lower leg limited to breakdown of skin (ICD-10 - L97.821) 2025 Non-pressure chronic ulcer of other part of left lower leg limited to breakdown of skin (ICD-10 - L97.821) 01/31/2025 Non-pressure chronic ulcer of other part of left lower leg limited to breakdown of skin (ICD-10 - L97.821) 03/15/2025 Venous insufficiency (ICD-10 - I87.2) 03/22/2025 Venous insufficiency (ICD-10 - I87.2) 03/29/2025 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) 04/17/2025 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) 05/08/2025 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) 05/15/2025 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) 05/29/2025 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) 05/29/2025 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) 05/15/2025 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) 05/08/2025 Venous insufficiency (ICD-10 - I87.2) 03/29/2025 Venous insufficiency (ICD-10 - I87.2) 04/17/2025 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) 03/15/2025 Peripheral vascular disease (ICD-10 - I73.9) 03/22/2025 Peripheral vascular disease (ICD-10 - I73.9) 2025 Pressure ulcer of right buttock, stage 3 (ICD-10 - L89.313) 01/31/2025 Pressure ulcer of right buttock, stage 3 (ICD-10 - L89.313) 01/10/2025 Pressure ulcer of right buttock, stage 3 (ICD-10 - L89.313) 01/10/2025 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) 01/31/2025 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) 2025 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) 03/15/2025 Obesity (ICD-10 - E66.9) 03/29/2025 Peripheral vascular disease (ICD-10 - I73.9) 03/22/2025 Obesity (ICD-10 - E66.9) 04/17/2025 Venous insufficiency (ICD-10 - I87.2) 05/08/2025 Peripheral vascular disease (ICD-10 - I73.9) 05/15/2025 Venous insufficiency (ICD-10 - I87.2) 05/29/2025 Venous insufficiency (ICD-10 - I87.2) 05/29/2025 Peripheral vascular disease (ICD-10 - I73.9) 05/15/2025 Peripheral vascular disease (ICD-10 - I73.9) 04/17/2025 Peripheral vascular disease (ICD-10 - I73.9) 05/08/2025 Obesity (ICD-10 - E66.9) 03/29/2025 Obesity (ICD-10 - E66.9) 03/22/2025 Edema (ICD-10 - R60.9) 03/15/2025 Edema (ICD-10 - R60.9) 2025 Venous insufficiency (ICD-10 - I87.2) 01/31/2025 Venous insufficiency (ICD-10 - I87.2) 01/10/2025 Venous insufficiency (ICD-10 - I87.2) 01/10/2025 Peripheral vascular disease (ICD-10 - I73.9) 01/31/2025 Peripheral vascular disease (ICD-10 - I73.9) 2025 Peripheral vascular disease (ICD-10 - I73.9) 03/15/2025 Weakness (ICD-10 - R53.1) 03/22/2025 Weakness (ICD-10 - R53.1) 03/29/2025 Edema (ICD-10 - R60.9) 04/17/2025 Obesity (ICD-10 - E66.9) 05/08/2025 Edema (ICD-10 - R60.9) 05/15/2025 Obesity (ICD-10 - E66.9) 05/29/2025 Obesity (ICD-10 - E66.9) 05/29/2025 Edema (ICD-10 - R60.9) 05/15/2025 Edema (ICD-10 - R60.9) 04/17/2025 Edema (ICD-10 - R60.9) 05/08/2025 Weakness (ICD-10 - R53.1) 03/22/2025 Abrasion of abdominal wall, subsequent encounter (ICD-10 - S30.811D) 03/29/2025 Weakness (ICD-10 - R53.1) 03/15/2025 Pressure ulcer of sacral region, stage 3 (ICD-10 - L89.153) 2025 Obesity (ICD-10 - E66.9) 01/31/2025 Obesity (ICD-10 - E66.9) 01/10/2025 Obesity (ICD-10 - E66.9) 01/10/2025 Edema (ICD-10 - R60.9) 01/31/2025 Edema (ICD-10 - R60.9) 2025 Edema (ICD-10 - R60.9) 03/29/2025 Abrasion of abdominal wall, subsequent encounter (ICD-10 - S30.811D) 05/08/2025 Abrasion of abdominal wall, subsequent encounter (ICD-10 - S30.811D) 04/17/2025 Weakness (ICD-10 - R53.1) 05/15/2025 Weakness (ICD-10 - R53.1) 05/29/2025 Weakness (ICD-10 - R53.1) 05/29/2025 Abrasion of abdominal wall, subsequent encounter (ICD-10 - S30.811D) 05/15/2025 Abrasion of abdominal wall, subsequent encounter (ICD-10 - S30.811D) 05/08/2025 Pressure injury, stage 3, unspecified location (ICD-10 - L89.93) 04/17/2025 Abrasion of abdominal wall, subsequent encounter (ICD-10 - S30.811D) 2025 Weakness (ICD-10 - R53.1) 01/31/2025 Weakness (ICD-10 - R53.1) 01/10/2025 Weakness (ICD-10 - R53.1) 01/31/2025 Pressure ulcer of sacral region, stage 3 (ICD-10 - L89.153) 2025 Pressure ulcer of sacral region, stage 3 (ICD-10 - L89.153) 05/15/2025 Pressure injury, stage 3, unspecified location (ICD-10 - L89.93) 05/29/2025 Pressure injury, stage 3, unspecified location (ICD-10 - L89.93) 01/31/2025 Unspecified open wound of left wrist, initial encounter (ICD-10 - S61.502A) 12/21/2024 Other ITed MD confirm that Dorota VALENZUELA understands and adheres to the guidelines of the established clinical protocols in the office. I confirm the above care provided was rendered under my general supervision as initially planned and subsequently discussed and supervised by me. 01/10/2025 Other Ted Jordan MD confirm that Dorota NAGEL-Roddy understands and adheres to the guidelines of the established clinical protocols in the office. I confirm the above care provided was rendered under my general supervision as initially planned and subsequently discussed and supervised by me. 01/31/2025 Other On exam, alert & cooperative with care. SHe is notably weak with multiple wound sites. We examined her wound sites which are all as detailed above. Her R abdominal wound has an adherent area of eschar with mild periwound erythema without warmth. Betadine was applied. Her L superior buttock has a stage 4 pressure ulcer with tunneling, max depth 3 o'clock 5.5cm. Her coccyx has mixed granular tissue and slough consistent with a stage 3 pressure ulcer and R heel has significant depth with lifting fibrinous slough. Her R gluteal fold is clean with granular tissue and R buttock is resolved. We discussed the indication for debridement to her L superior buttock, coccyx and R heel wounds and performed as detailed. She tolerated the procedures well after applications of lidocaine. There were no acute findings to indicate any acute underlying infectious processes, but it is nearly impossible to see the entire wound cavity of the L superior buttock ulceration. Her BLE's are improved with adherent scattered scabs without drainage. L wrist ST is resolved on my exam today. I cleaned the wounds with wound cleanser and applied SP to periwound, Ag alg packed gently to L superior buttock f.b DCD, SP periwound f.b Medihoney DCD to coccyx and R gluteal fold and SP periwound of R heel 1/4 strength Dakin's moist gauze f/b DCD. I recommended nursing apply SP to periwound, Ag alg packed gently to L superior buttock f.b DCD QD, SP periwound f.b Medihoney DCD to coccyx and R gluteal fold QD and SP periwound of R heel 1/4 strength Dakin's moist gauze f/b DCD BID & all PRN soiling, saturation or accidental removal. She needs a vascular referral, general surgery consult, and imaging (CT preferred) to L superior buttock to r/o OM. Turn, reposition & offload Q2 hours & PRN to aid in wound healing. Encourage appropriate dietary supplementation to aid in wound healing. I will follow up in about one week to monitor her progress and nursing will reach out in the interim w any questions or concerns. Patient and nursing agree w plan of care. I Imani Gaston MSN, AGNP- examined, evaluated and treated the patient. Dr. Lorena Hernandez was available for any question or concerns that I may have had. I spent 75 minutes of direct and indirect care of this patient reviewing records, gathering H&P, evaluation and treatment, formulating plan, education and documentation. I, Ted Hernandez MD confirm that Imani Gaston MSN, [facility]-, understands and adheres to the guidelines of the established clinical protocols in the office. I confirm the above care provided was rendered under my general supervision as initially planned and subsequently discussed and supervised by me. 2025 Other On exam, alert & cooperative with care. She is notably weak with multiple wound sites. We examined her wound sites which are all as detailed above. Her R abdominal wound has an adherent area of eschar without periwound erythema, starting to lift but still attached. Betadine was applied. Her L superior buttock has a stage 4 pressure ulcer with tunneling, max depth 3 o'clock 4.8cm and last week was 5.5cm; the X-ray was negative for OM, but as discussed, this is a nonspecific marker for OM. Her coccyx wound is improving nicely with a small granular area remaining; triad paste applied. R heel has significant depth with lifting fibrinous slough. Her R gluteal fold is resolved with epithelial tissue. We discussed the indication for debridement to her L superior buttock and R heel wounds and performed as detailed. She tolerated the procedures well after applications of lidocaine. There were no acute findings to indicate any acute underlying infectious processes, but it is nearly impossible to see the entire wound cavity of the L superior buttock ulceration. Her BLE's are improved with adherent scattered scabs without drainage. I cleaned the wounds with wound cleanser and applied SP to periwound, Ag alg packed gently to L superior buttock and R heel f.b DCDs, triad paste to coccyx. I recommended nursing apply SP to periwound, Ag alg packed gently to L superior buttock and R heel f.b DCD QD to L superior buttock and R heel. Triad paste QS to coccyx & all PRN soiling, saturation or accidental removal. Discussed with nursing consideration of imaging (CT preferred) to L superior buttock to r/o OM as recommended by [facility]. Turn, reposition & offload Q2 hours & PRN to aid in wound healing. Encourage appropriate dietary supplementation to aid in wound healing. Patient and nursing agree w plan of care. I Imani Gaston MSN, [facility]-BC examined, evaluated and treated the patient. Dr. Lorena Hernandez was available for any question or concerns that I may have had. 03/15/2025 Other On exam, alert & cooperative with care. She ambulated from the wheelchair to the chair. Her friend is present for exam and provides her transportation. Her dressings were removed and wounds examined. Her R abdominal wound has an adherent area of eschar without periwound erythema, fluctuant. Her L abdominal area has another ? abrasion with mixed granular tissue and slough. Her L superior buttock has a stage 4 pressure ulcer with 2.8cm of depth compared to tunnel at 3 o'clock which was 4.8cm and 5.5cm. I am unable to see the base of the wound bed to determine if the wound has completely filled in. the X-ray at [facility] was negative for OM, but as discussed, this is a nonspecific marker for OM. Her coccyx wound is resolved. R heel has less depth still with significant lifting fibrinous slough adipose, muscle and some granular tissue exposed. We discussed the indication for debridement to her L superior buttock, R heel and abdominal wounds and performed as detailed. She tolerated the procedures well after applications of lidocaine. There were no acute findings to indicate any acute underlying infectious processes, but it is nearly impossible to see the entire wound cavity of the L superior buttock ulceration as discussed. I cleaned the wounds with wound cleanser and applied zinc to periwounds, Ag alg to L superior buttock, R heel, R and L abdominal wounds f.b DCDs. I recommended VNA continue to perform daily dressing changes, now with zinc to periwounds, Ag alg to L superior buttock, R heel, R and L abdominal wounds f.b DCDs. Discussed importance of imaging (CT preferred) to L superior buttock to r/o OM as also recommended by [facility]. She is hesitant to come for weekly appointments due to difficulty with mobility. We agreed on weekly appointments until we see wound healing and progress. She understands we intend to place a wound vac to her L buttock wound if the CT is negative for OM and refer to ID if positive. She understands she needs to reschedule and follow up with vascular as well. Turn, reposition & offload Q2 hours & PRN to aid in wound healing. Encourage appropriate dietary supplementation to aid in wound healing. Patient and nursing agree w plan of care. I spent a total of 65 minutes on this visit, providing direct and indirect care of this patient reviewing records, gathering H&P, counseling the patient on treatment choices, disease process, expected outcomes, formulating plan, evaluation and treatment, education and documentation of findings I Imani Gaston MSN, [facility]- examined, evaluated and treated the patient. Dr. Lorena Hernandez was available for any question or concerns that I may have had. 03/22/2025 Other On exam, alert & cooperative with care. She ambulated from the wheelchair to the chair. Her friend is present for exam and provides her transportation. Her dressings were removed and wounds examined. Her R abdominal wound is improved, mixed granular tissue and slough, edges thickened and rolled Her L abdominal wound is measuring wider, also with thick and rolled edges Her L superior buttock has a stage 4 pressure ulcer; there is more depth to the ulcer today. I am unable to see the base of the wound bed to determine if the wound has completely filled in and I do feel fluctuance and ? open air to the surrounding skin. The X-ray at [facility] was negative for OM, but as we continue to discuss, this is a nonspecific marker for OM. R heel has less depth still with significant lifting fibrinous slough, adipose, muscle and some granular tissue exposed, improved from 1 week ago We discussed the indication for debridement and silver nitrate to her L superior buttock, R heel and abdominal wounds and performed as detailed. She tolerated the procedures well after applications of lidocaine. There were no acute findings to indicate any acute underlying infectious processes, but it is nearly impossible to see the entire wound cavity of the L superior buttock ulceration as discussed. I cleaned the wounds with wound cleanser and applied zinc to periwounds, Ag alg to L superior buttock, R heel, R and L abdominal wounds f.b DCDs. I recommended VNA continue to perform daily dressing changes with zinc to periwounds, Ag alg to L superior buttock, R heel, R and L abdominal wounds f.b DCDs. A prior auth is in the works to obtain a CT to L superior buttock to r/o OM as also recommended by [facility] and the surgical team there. She is hesitant to come for weekly appointments due to difficulty with mobility. We agreed on weekly appointments until we see wound healing and progress. She understands we intend to place a wound vac to her L buttock wound if the CT is negative for OM and refer to ID if positive. She understands she needs to reschedule and follow up with vascular as well but she and her friend who helps with transportation report it is difficult for her to get out of her home. She reports she is spending most of her time in a recliner and sleeping in that recliner. Turn, reposition & offload Q2 hours & PRN to aid in wound healing. Encourage appropriate dietary supplementation to aid in wound healing; discussed fairlife and ensure protein drinks. Patient and nursing agree w plan of care. I spent a total of 62 minutes on this visit, providing direct and indirect care of this patient reviewing records, gathering H&P, counseling the patient on treatment choices, disease process, expected outcomes, formulating plan, evaluation and treatment, education and documentation of findings I Imani GUADARRAMA, AGNP-BC examined, evaluated and treated the patient. Dr. Lorena Hernandez was available for any question or concerns that I may have had. I, Ted Hernandez MD confirm that Imani GUADARRAMA, AGNP-BC, understands and adheres to the guidelines of the established clinical protocols in the office. I confirm the above care provided was rendered under my general supervision as initially planned and subsequently discussed and supervised by me. 03/29/2025 Other On exam, alert & cooperative with care. She ambulated from the wheelchair to the chair. Her friend is present for exam and provides her transportation. Her dressings were removed and wounds examined. Her R abdominal wound is improved, mixed granular tissue and slough, edges thickened and rolled Her L abdominal wound is measuring wider, also with thick and rolled edges Her L superior buttock has a stage 4 pressure ulcer. I reviewed her imaging results today and concerns for osteomyelitis. I am unable to see the base of the wound bed to determine if the wound has completely filled in and I do feel fluctuance and ? open air to the surrounding skin. R heel has less depth still with significant lifting fibrinous slough, adipose, muscle and some granular tissue exposed, continues to slowly improve We discussed the indication for debridement and/or silver nitrate to her L superior buttock, R heel and abdominal wounds and performed as detailed. She tolerated the procedures well after applications of lidocaine. There were no acute findings to indicate any acute underlying infectious processes, but it is nearly impossible to see the entire wound cavity of the L superior buttock ulceration as discussed. I did not perform debridement to her L buttock wound as I cannot see the base of the wound bed and I did not see an immediate benefit. See below for discussions of care and recommendations. I cleaned the wounds with wound cleanser and applied zinc to periwounds, Ag alg to L superior buttock, R heel, R and L abdominal wounds f.b DCDs. I had a 25 minute face to face discussion with Anna regarding her goals of care. 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 We discussed goals of care from comfort measures only and hospice services to potential OR debridement to open up the cavity and clean out the bone infection which would also require terminologist antibiotics and likely a rehabilitation stay thereafter. She is adamantly refusing to go back to any rehabilitation and states she will not even consider going to a hospital if she cannot discharge back home thereafter. She is concerned about the cost of a hospital stay and reports she would like to think about her overall goals of care before commiting to a hospital. We discussed prolonging treatment setting up an outpatient ID consult and the risks associated with the wound deteriorating within that time. She reports understanding, she is just feeling defeated and would like time home alone to think about her next goals of care. I recommended VNA continue to perform daily dressing changes with zinc to periwounds, Ag alg to L superior buttock, R heel, R and L abdominal wounds f.b DCDs. She is hesitant to come for weekly appointments due to difficulty with mobility. We agreed on weekly appointments until we see wound healing and progress. She understands she needs to reschedule and follow up with vascular as well but she and her friend who helps with transportation report it is difficult for her to get out of her home. She reports she is spending most of her time in a recliner and sleeping in that recliner. Turn, reposition & offload Q2 hours & PRN to aid in wound healing. Encourage appropriate dietary supplementation to aid in wound healing; discussed fairlife and ensure protein drinks. Patient and nursing agree w plan of care. I spent a total of 70 minutes on this visit, providing direct and indirect care of this patient reviewing records, gathering H&P, counseling the patient on treatment choices, disease process, expected outcomes, formulating plan, evaluation and treatment, education and documentation of findings I Imani Gaston MSN, AGPCNP-BC examined, evaluated and treated the patient. Dr. Lorena Hernandez was available for any question or concerns that I may have had. I, Ted Hernandez MD confirm that Imani GUADARRAMA, AGNP-BC, understands and adheres to the guidelines of the established clinical protocols in the office. I confirm the above care provided was rendered under my general supervision as initially planned and subsequently discussed and supervised by me. 04/17/2025 Other On exam, alert & cooperative with care. She ambulated from the wheelchair to the chair. Her friend is present for exam and provides her transportation. He feels as though her mobility and mentation have improved. She feels her strength is improving as are her wounds. Her dressings were removed and wounds examined. Her R abdominal wound is improved, healthy granular tissue, edges thickened and rolled Her L abdominal wound is measuring wider, also with thick and rolled edges but primarily clean with granular tissue Her L superior buttock has a stage 4 pressure ulcer. I am still unable to visualize the base of the wound bed to determine if the wound has completely filled in. I do still feel fluctuance and ? open air to the surrounding skin but as per the CT report, IR was not able to aspirate anything, and she is on doxycycline and Augmentin R heel has significant slough with periwound moisture and maceration. We discussed the indication for debridement and/or silver nitrate to her L superior buttock, R heel and abdominal wounds and performed as detailed. She tolerated the procedures well after applications of lidocaine. Her R heel cleaned up nicely after debridement and has healthy granular tissue. There were no acute findings to indicate any acute underlying infectious processes, but it is nearly impossible to see the entire wound cavity of the L superior buttock ulceration as discussed, and she is being treated for OM and sacroiliitis. See below for discussions of care and recommendations. I cleaned the wounds with wound cleanser and applied zinc to periwound, Ag alg to L superior buttock, R heel, R and L abdominal wounds f.b DCDs. I recommended VNA perform dressing changes Thursday, Thursday and Fridays with zinc to periwound, gently packed Ag alg to L superior buttock wound, R heel, R and L abdominal wounds f.b DCDs. She is hesitant to come for weekly appointments due to difficulty with mobility. She will complete her Augmentin and doxycycline which is to be completed on 05/14. She has ID follow up 05/04 and cardiology follow up 06/01. She does not want any additional appointments or referrals, including to vascular. She reports she is spending most of her time in a recliner and sleeping in that recliner. Turn, reposition & offload Q2 hours & PRN to aid in wound healing. Encourage appropriate dietary supplementation to aid in wound healing; discussed fairlife and ensure protein drinks. Patient and nursing agree w plan of care. I spent a total of 52 minutes on this visit, providing direct and indirect care of this patient reviewing records, gathering H&P, counseling the patient on treatment choices, disease process, expected outcomes, formulating plan, evaluation and treatment, education and documentation of findings I Imani Gaston MSN, AGPCNP-BC examined, evaluated and treated the patient. Dr. Lorena Hernandez was available for any question or concerns that I may have had. I, Ted Hernandez MD confirm that Imani Gaston MSN, AGPCNP-BC, understands and adheres to the guidelines of the established clinical protocols in the office. I confirm the above care provided was rendered under my general supervision as initially planned and subsequently discussed and supervised by me. 05/08/2025 Other On exam, alert & cooperative with care. She ambulated from the wheelchair to the chair. Her friend is present for exam and provides her transportation. He feels as though her mobility and mentation have improved. Her dressings were removed and wounds examined. Her abdominal wounds are worse and she has a new R abdominal and R anterior thigh wounds; the thigh wound appears to be caused by pressure from her abdominal fold sitting on her thigh. Her L abdominal wound has thick and adherent slough and is larger. There is still significant induration to her entire abdomen and the etiology remains unclear. I agree with ID that an OR debridement to further open up this area and determine what is underneath may be beneficial. Anna reports she feels like something inside is trying to come out. 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 I am still unable to visualize the base of the wound bed to determine if the wound has completely filled in. I do still feel fluctuance and ? open air to the surrounding skin but as per the CT report, IR was not able to aspirate anything, and she is on doxycycline and Augmentin. The area is stable/improved today R heel has significant slough with periwound moisture and maceration. We discussed the indication for debridement and/or silver nitrate to her L superior buttock, R heel and abdominal wounds and performed as detailed. She refused silver nitrate to her abdominal wounds secondary to pain. She tolerated the procedures well after applications of lidocaine. Her R heel cleaned up nicely after debridement and has healthy granular tissue. There were no acute findings to indicate any acute underlying infectious processes, but it is nearly impossible to see the entire wound cavity of the L superior buttock ulceration as discussed, and she is being treated for OM and sacroiliitis. See below for discussions of care and recommendations. I cleaned the wounds with wound cleanser and applied zinc to periwound, Ag alg to L superior buttock, R heel f.b DCDs and zinc to periwounds, santyl f/b DCDs to abdominal wounds and R anterior thigh. I recommended VNA perform dressing changes Thursday, Thursday and Fridays with zinc to periwound, gently packed Ag alg to L superior buttock wound, R heel, and zinc to periwound, santyl f/b DCD R and L abdominal wounds and R anterior thigh wounds to be changed QD & PRN. Interdry to start to abdomen to help reduce pressure and wick any moisture away. She is hesitant to come for weekly appointments due to difficulty with mobility. She will complete her Augmentin and doxycycline which is to be completed on 05/14. She has a cardiology follow up 06/01. She is going to call CT back today to schedule that repeat. She does not want any additional appointments or referrals, including to vascular. We discussed importance of protein supplementation and offloading to aid in wound healing. Turn, reposition & offload Q2 hours & PRN to aid in wound healing. Encourage appropriate dietary supplementation to aid in wound healing; discussed fairlife and ensure protein drinks. She will return for a follow up appt in one week, callig sooner with any questions or concerns. Patient and nursing agree w plan of care. I spent a total of 68 minutes on this visit, providing direct and indirect care of this patient reviewing records, gathering H&P, counseling the patient on treatment choices, disease process, expected outcomes, formulating plan, evaluation and treatment, education and documentation of findings I Imani Gaston MSN, AGNP-BC examined, evaluated and treated the patient. Dr. Lorena Hernandez was available for any question or concerns that I may have had. I, Ted Hernandez MD confirm that Imani GUADARRAMA, [facility] understands and adheres to the guidelines of the established clinical protocols in the office. I confirm the above care provided was rendered under my general supervision as initially planned and subsequently discussed and supervised by me. 05/15/2025 Other On exam, alert & cooperative with care. She ambulated from the wheelchair to the chair. Her friend is present for exam and provides her transportation. Her dressings were removed and wounds examined. Her R thigh wound is improved and R abdominal wound is improved. L abdominal wound is worse, primarily unstable eschar to the wound bed with 1 area of depth, adipose exposed. Significant induration persists to her entire abdomen, L worse than R, and the etiology remains unclear. I agree with ID that an OR debridement to further open up this area and determine what is underneath would likely be beneficial and may be necessary if deterioration continues. Anna reports she feels like something inside is trying to come out. 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 I do still feel fluctuance and ? open air to the surrounding skin but as per the CT report, IR was not able to aspirate anything. As stated, she is on doxycycline and Augmentin. R heel has significant slough buildup week to week but continues to improve. We discussed the indication for debridement and/or silver nitrate to her L superior buttock, R heel and abdominal wounds and performed as detailed. She refused silver nitrate to her abdominal wounds secondary to pain. She tolerated the procedures well after applications of lidocaine. Her R heel cleaned up nicely after debridement and has healthy granular tissue, edges remain thickened and rolled so I applied silver nitrate after cleaning with saline. There were no acute findings to indicate any acute underlying infectious processes to her R heel, but it is nearly impossible to see the entire wound cavity of the L superior buttock ulceration as discussed, and she is being treated for OM and sacroiliitis. See below for discussions of care and recommendations. I cleaned the wounds with wound cleanser and applied zinc to periwound, Ag alg to L superior buttock, R heel f.b DCDs and skin prep to periwounds, santyl f/b DCD to R abdominal wound and R anterior thigh and SP to periwound of L abdominal wound, nickel thick santyl, 1/2 strength dakins moist gauze f/b DCD. I recommended VNA perform dressing changes Thursday, Thursday and Fridays with zinc to periwound, gently packed Ag alg to L superior buttock wound, R heel, andskin prep to periwounds, santyl f/b DCD to R abdominal wound and R anterior thigh and SP to periwound of L abdominal wound, nickel thick santyl, 1/2 strength dakins moist gauze f/b DCD to be changed QD & PRN. Interdry to abdomen to help reduce pressure and wick any moisture away. She is hesitant to come for weekly appointments due to difficulty with mobility. She will complete her Augmentin and doxycycline which is to be completed on 05/14. She has a cardiology follow up 06/01. She is going to call CT back today to schedule that repeat. She does not want any additional appointments or referrals, including to vascular. We discussed importance of protein supplementation and offloading to aid in wound healing. Turn, reposition & offload Q2 hours & PRN to aid in wound healing. Encourage appropriate dietary supplementation to aid in wound healing; discussed fairlife and ensure protein drinks. She will return for a follow up appt in two weeks per her request, calling sooner with any questions or concerns. Patient, friend, and nursing agree w plan of care. I discussed sxs infectious processes and when to go to ED. Patient and Robles verbalize understanding. I spent a total of 58 minutes on this visit, providing direct and indirect care of this patient reviewing records, gathering H&P, counseling the patient on treatment choices, disease process, expected outcomes, formulating plan, evaluation and treatment, education and documentation of findings I Imani Gaston MSN, [facility]- examined, evaluated and treated the patient. Dr. Lorena Hernandez was available for any question or concerns that I may have had. I, Ted Hernandez MD confirm that Imani Gaston MSN, AGPCNP-, understands and adheres to the guidelines of the established clinical protocols in the office. I confirm the above care provided was rendered under my general supervision as initially planned and subsequently discussed and supervised by me. 05/29/2025 Other On exam, alert & cooperative with care. She ambulated from the wheelchair to the chair. Her friend is present for exam and provides her transportation. Her dressings were removed and wounds examined. Her R abdominal , L ischial, and R heel wounds are improved. L abdominal wound is worse, primarily unstable eschar to the wound bed with 1 area of depth, adipose exposed. Significant induration persists to her entire abdomen, L worse than R, and the etiology remains unclear. I agree with ID that an OR debridement to further open up this area and determine what is underneath would likely be beneficial and may be necessary if deterioration continues. Anna reports she feels like something inside is trying to come out but does not want to see a surgeon for consult and additional recommendations. 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 I do still feel fluctuance and ? open air to the surrounding skin but as per the CT report, IR was not able to aspirate anything. R heel has significant slough buildup week to week with periwound moisture and maceration but continues to improve. We discussed the indication for debridement and/or silver nitrate to her L superior buttock, R heel and abdominal wounds and performed as detailed. She refused silver nitrate to her abdominal wounds secondary to pain. She tolerated the procedures well after applications of lidocaine. Her R heel cleaned up nicely after debridement and has healthy granular tissue, edges remain thickened and rolled so I applied silver nitrate after cleaning with saline. There were no acute findings to indicate any acute underlying infectious processes to her R heel, but it is nearly impossible to see the entire wound cavity of the L superior buttock ulceration. See below for discussions of care and recommendations. I cleaned the wounds with wound cleanser and applied zinc to periwound, Ag puracol to L superior buttock, R heel f.b DCDs and skin prep to periwounds, santyl f/b DCD to R abdominal wound and R anterior thigh and SP to periwound of L abdominal wound, nickel thick santyl, 1/2 strength dakins moist gauze f/b DCD. ABD and RG to R heel rather than BF due to periwound moisture and maceration I recommended VNA perform dressing changes Thursday, Thursday and Fridays with zinc to periwound, gently packed Ag puracol to L superior buttock wound, R heel, and skin prep to periwounds, santyl f/b DCD to R abdominal wound and R anterior thigh and SP to periwound of L abdominal wound, nickel thick santyl, 1/2 strength dakins moist gauze f/b DCD to be changed QD & PRN. Interdry to abdomen to help reduce pressure and wick any moisture away. ABD and RG to R heel rather than BF due to periwound moisture and maceration She is hesitant to come for weekly appointments due to difficulty with mobility. She has a cardiology follow up 06/01. She does not want any additional appointments or referrals, including to vascular or general surgery. We discussed importance of protein supplementation and offloading to aid in wound healing. Turn, reposition & offload Q2 hours & PRN to aid in wound healing. Encourage appropriate dietary supplementation to aid in wound healing; discussed fairlife and ensure protein drinks. She will return for a follow up appt in two weeks, calling sooner with any questions or concerns. Patient, friend, and nursing agree w plan of care. I discussed sxs infectious processes and when to go to ED. Patient and Robles verbalize understanding. I spent a total of 52 minutes on this visit, providing direct and indirect care of this patient reviewing records, gathering H&P, counseling the patient on treatment choices, disease process, expected outcomes, formulating plan, evaluation and treatment, education and documentation of findings I Imani Gaston MSN, [facility]- examined, evaluated and treated the patient. Dr. Lorena Hernandez was available for any question or concerns that I may have had. I, Ted Hernandez MD confirm that Imani GUADARRAMA, [facility] understands and adheres to the guidelines of the established clinical protocols in the office. I confirm the above care provided was rendered under my general supervision as initially planned and subsequently discussed and supervised by me. Plan Of Treatment Next Appt Details Provider Name:Imani Gaston , 06/14/2025 09:00:00 AM, [address], [address], [place], [address], Insurance Providers Payer Name Payer Address Payer Phone Subscriber Number Group Number Insured Name Patient Relationship to Insured Coverage Start Date Coverage End Date 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
== END 2025-06-07 16:06 | disposition home or self-care (01) ==
LOC: HO.HMCFM 15:09
PROVIDERS: PCP Family Medicine; Visit Provider Family Medicine
DX: Z00.00 Encounter for general adult medical examination without abnormal findings (principal); E11.9 Type 2 diabetes mellitus without complications; I48.91 Unspecified atrial fibrillation; I10 Essential (primary) hypertension; E03.9 Hypothyroidism, unspecified; K21.9 Gastro-esophageal reflux disease without esophagitis; Q24.8 Other specified congenital malformations of heart

== ENCOUNTER → 2025-06-07 15:08 | Outpatient (BNVA) | payer OTHER, SELFPAY | PROVIDERS: PCP Family Medicine; Visit Provider Family Medicine | DX: Z00.00 Encounter for general adult medical examination without abnormal findings (principal); I10 Essential (primary) hypertension; E11.9 Type 2 diabetes mellitus without complications; E03.9 Hypothyroidism, unspecified; K21.9 Gastro-esophageal reflux disease without esophagitis; I48.91 Unspecified atrial fibrillation; Q24.8 Other specified congenital malformations of heart; Z79.01 Long term (current) use of anticoagulants; Z79.899 Other long term (current) drug therapy; Z13.31 Encounter for screening for depression; Z13.39 Encounter for screening examination for other mental health and behavioral disorders | CPT/HCPCS: 96127 ==

== ENCOUNTER 2025-07-13 10:42 | Outpatient (AMB) | payer OTHER, SELFPAY ==
--- OUTSIDE RECORDS SUMMARY | 2025-06-12 05:30 | XMS_ITS ---
Author Organization [facility] Address [address] [facility] [address] [place] [address] Care Team Providers Care Manager Fine Dining Name Role Phone Anitha ZARATEP-Latoya Pereyra Primary Care Provid er Unavailable Imani Gaston Unavailable [phone] Encounters Encounter Location Date Provider Diagnosis [facility] [address] [facility] [address] [place] [address] 06/12/2025 Imani Gaston Plan Of Treatment Next Appt Details Provider Name:Imani Gaston , 07/19/2025 01:00:00 PM, [address], [place], [address], Progress Notes * Anna MARIDOB:1945 (80 yo F)Acc No.[id number]:06/12/2025 Follow-Up Visit Patient: Anna GREGORY Provider: Charles Gaston NP :1945 A ge:80 Y S ex:Female Date:06/12/2025 Address:[address] [id number] Pcp:Halle Alanis Subjective: * Chief Complaints: * * Medical History: Objective: * Vitals: Assessment: Plan: * Treatment: * Billing Information: * Visit Code: * Procedure Codes: * Electronic signature of Keyanna Gaston NP on 07/13/2025 at 12:17 PM EDT Sign off status: Pending * Provider: Charles Gaston NP Date: 06/12/2025 Generated for Printi ng/Faxing/eTransmitting on: 07/13/2025 12:17 PM EDT
--- OUTSIDE RECORDS SUMMARY | 2025-06-14 05:00 | XMS_ITS ---
Author Organization [facility] Address [address] [facility] [address] [place] [address] Care Team Providers Care Pull Worker Name Role Phone Anitha ZARATEP-Latoya Pereyra Primary Care Provid er Unavailable Imani Gaston Unavailable [phone] REASON FOR VISIT Follow up wound care Encounters Encounter Location Date Provider Diagnosis [facility] [address] [facility] [address] [place] [address] 06/14/2025 Imani Gaston Plan Of Treatment Next Appt Details Provider Name:Imani Gaston , 07/19/2025 01:00:00 PM, [address], [place], [address], Progress Notes * Anna MARIDOB:1945 (80 yo F)Acc No.[id number]:06/14/2025 Follow-Up Visit Patient: Anna GREGORY Provider: Charles Gaston NP :1945 A ge:80 Y S ex:Female Date:06/14/2025 Address[address] [facility] Pcp:Halle Alanis Subjective: * Chief Complaints: * 1 . Follow up wound care. * Medical History: Objective: * Vitals: Assessment: Plan: * Treatment: * Billing Information: * Visit Code: * Procedure Codes: * Electronic signature of Keyanna Gaston NP on 07/13/2025 at 12:17 PM EDT Sign off status: Pending * Provider: Charles Gaston NP Date: 06/14/2025 Generated for Printi ng/Faxing/eTransmitting on: 0 07/13/2025 12:17 PM EDT
--- OUTSIDE RECORDS SUMMARY | 2025-07-11 14:50 | XMS_ITS | Continuity of Care Document ---
Author Organization [facility] ter Address [address] [place] [address]- Care Team Providers Care Sports Management Intern Name Role Phone Samra PATTERSON, David Burden Primary Care Physician Encounter [facility] ACCT R [id number] Date(s): 07/07/25 - 07/11/25 [facility] [address] [place] [id number] Encounter Diagnosis Infected surgical wound(Final) - 07/07/25 Discharge Disposition: A-Transfer VNA/Home Health Attending Physician: Gustavo Augustine DO Admitting Physician: Gustavo Augustine DO Referring Physician: Not on Staff, Referring MD Encounter Type: Disch IP Allergies, Adverse Reactions, Alerts Substance Criticality Severity Reaction Reaction Severity Status Latex Active oxyCODONE High criticality Moderate AMS nausea sweating Active Functional Status Functional Status Assessment Assessment Assessment Component Result Effecti ve Date Unspecifed Functional Status Assessment Skin abnormality typ e (observable entity) Surgical incision 07/10/25 Functional Status Assessment Assessment Assessment Component Result Effecti ve Date Saroj scale skin assessment panel 19 07/09/25 Functional Status Assessment Assessment Assessment Component Result Effecti ve Date Total Falls Risk Score 14 Functional Status Assessment Assessment Assessment Component Result Effecti ve Date Unspecifed Functional Status Assessment Skin abnormality typ e (observable entity) Surgical incision 07/11/25 Functional Status Assessment Assessment Assessment Component Result Effecti ve Date Unspecifed Functional Status Assessment Skin abnormality typ e (observable entity) Erythema 07/11/25 Functional Status Assessment Assessment Assessment Component Result Effecti ve Date Saroj scale total score 18 07/11 Functional Status Assessment Assessment Assessment Component Result Effecti ve Date Total Falls Risk Score 9 5 Functional Status Assessment Assessment Assessment Component Result Effecti ve Date Total Falls Risk Score 6 5 Functional Status Assessment Assessment Assessment Component Result Effecti ve Date Saroj scale total score 20 07/10 Functional Status Assessment Assessment Assessment Component Result Effecti ve Date Total score [AUDIT] 0 07/08/25 Immunizations Given and Recorded Vaccine Date Status Refusal Reason RSV vaccine preF3, recombinant 09/18/23 Recorded influenza virus vaccine, inactivated 08/15/23 Teodoro rded influenza virus vaccine, inactivated 08/06/22 Teodoro rded influenza virus vaccine, inactivated 08/12/21 Teodoro rded influenza virus vaccine, inactivated 08/15/20 Teodoro rded influenza virus vaccine, inactivated 09/21/19 Give n SARS-CoV-2(COVID-19)mRNA-LNP vac([id number]) 08/14/23 Recorded tetanus/diphtheria/pertussis, acel(Tdap) 06/11/23 Recorded pneumococcal 20-valent conjugate vaccine 04/15/23 Given [id number] 12y+ bivalent booster vax 12/29/22 Recorded SARS-CoV-2 mRNA ([id number]) vax 06/08/22 Recorded SARS-CoV-2 (COVID-19) mRNA BNT-162b2 vac 08/30/21 Recorded SARS-CoV-2 (COVID-19) mRNA BNT-162b2 vac 02/12/21 Given SARS-CoV-2 (COVID-19) mRNA BNT-162b2 vac 02/12/21 Recorded SARS-CoV-2 (COVID-19) mRNA BNT-162b2 vac 01/22/21 Given SARS-CoV-2 (COVID-19) mRNA BNT-162b2 vac 01/22/21 Recorded Influenza Virus Vaccine (oldterm) 1 08/09/20 Recor ded 1Result Comment: [facility] Medications A+D topical ointment Topically, Daily, applied to lower extremities for dry skin, Maintenance, 03/31/25 8:12:00 PM EDT, Partial fill upon patient request if the prescription is for a schedule II opioid drug. Start Date: 03/31/25 Status: Ordered Medication Dispense Status: Completed Total Allowed Fills: 1 Fills Dispensed: 0 acetaminophen 325 mg oral tablet 975 mg, By Mouth, Every 6 hours, for 7 days, # 50 tablet, Refills 0, Tot. Refills 0, Acute 07/18/25 11:58:00 AM EDT, 07/11/25 11:58:00 AM EDT, Route to Pharmacy Electronically, [id number], Partial fill upon patient request if the prescription is for a schedule II opioid drug., 153, cm, 07/09/25 3:38:00 EDT, Height, 81, kg, 07/08/25 1:42:00 EDT, Dry Weight Start Date: 07/11/25 Stop Date: 07/18/25 Status: Ordered Medication Dispense Status: Completed Quantity: 50.0 Unit: tablet Total Allowed Fills: 1 Fills Dispensed: 0 amoxicillin-clavulanate 875 mg-125 mg oral tablet = 875 mg, By Mouth, 2 times a day, for 14 days, # 28 tablet, 0 Refills, Acute 07/25/25 12:00:00 PM EDT, 07/11/25 12:00:00 PM EDT, Tablet, [id number], Partial fill upon patient request if the prescription is for a schedule II opioid drug., 153, cm, 07/09/25 3:38:00 EDT, Height, 81, kg, 07/08/25 1:42:00 EDT, Dry Weight Start Date: 07/11/25 Stop Date: 07/25/25 Status: Ordered Medication Dispense Status: Completed Quantity: 28.0 Unit: tablet Total Allowed Fills: 1 Fills Dispensed: 0 atorvastatin 40 mg oral tablet 1 tablet, By Mouth, Daily at bedtime, # 90 tablet, 0 Refills, Maintenance, 05/08/25 9:47:00 PM EDT, [id number], 153, cm, 05/04/25 10:14:00 EDT, Height, 78.2, kg, 05/02/25 13:36:00 EDT, Dry Weight Start Date: 05/08/25 Status: Ordered Medication Dispense Status: Completed Quantity: 90.0 Unit: tablet Total Allowed Fills: 1 Fills Dispensed: 0 CBC in 3 days CBC in 3 days, See Instructions, # 1 each, Refills 0, Tot. Refills 0, Maintenance, Forward the results to Luis Manuel VILLANUEVA, Latoya Travis, 06/25/25 11:50:00 AM EDT, Supply Start Date: 06/25/25 Status: Ordered Medication Dispense Status: Completed Quantity: 1.0 Unit: each Total Allowed Fills: 1 Fills Dispensed: 0 digoxin 0.125 mg oral tablet 1, tablet, By Mouth, Daily at bedtime, # 90 tablet, Refills 3, Maintenance, 08/08/24 10:30:00 AM EDT, Route to Pharmacy Electronically, [id number], 158, cm, 08/01/24 12:56:00 EDT, Height, 129.6, kg, 07/05/24 18:15:00 EDT, Dry Weight Start Date: 08/08/24 Status: Ordered Medication Dispense Status: Completed Quantity: 90.0 Unit: tablet Total Allowed Fills: 1 Fills Dispensed: 0 doxycycline hyclate 100 mg oral tablet = 100 mg, By Mouth, Every 12 hours, for 14 days, # 28 tablet, 0 Refills, Acute 07/25/25 12:00:00 PM EDT, 07/11/25 12:00:00 PM EDT, Tablet, [id number], Partial fill upon patient requestif the prescription is for a schedule II opioid drug., 153, cm, 07/09/25 3:38:00 EDT, Height, 81, kg, 07/08/25 1:42:00 EDT, Dry Weight Start Date: 07/11/25 Stop Date: 07/25/25 Status: Ordered Medication Dispense Status: Completed Quantity: 28.0 Unit: tablet Total Allowed Fills: 1 Fills Dispensed: 0 Eliquis 5 mg oral tablet 1 tablet, By Mouth, 2 times a day, # 180 tablet, 3 Refills, Maintenance, 08/08/24 10:30:00 AM EDT, [id number], 158, cm, 08/01/24 12:56:00 EDT, Height, 129.6, kg, 07/05/24 18:15:00 EDT, Dry Weight Start Date: 08/08/24 Status: Ordered Medication Dispense Status: Completed Quantity: 180.0 Unit: tablet Total Allowed Fills: 1 Fills Dispensed: 0 lisinopril 2.5 mg oral tablet 2.5 mg, 1, tablet, By Mouth, Daily, Refills 0, Maintenance, 07/07/25 5:04:00 PM EDT, Partial fill upon patient request if the prescription is for a schedule II opioid drug. Start Date: 07/07/25 Status: Ordered Medication Dispense Status: Completed Total Allowed Fills: 1 Fills Dispensed: 0 lisinopril 5 mg oral tablet 2.5 mg, Tablet, By Mouth, 07/11/25 9:00:00 AM EDT Start Date: 07/11/25 Stop Date: 07/11/25 Status: Completed Medication Dispense Status: Completed Total Allowed Fills: 1 Fills Dispensed: 0 metFORMIN 850 mg oral tablet 1 tablet = 850 mg, By Mouth, 2 times a day, Maintenance, 03/31/25 8:09:00 PM EDT, Tablet, Partial fill upon patient request if the prescription is for a schedule II opioid drug. Start Date: 03/31/25 Status: Ordered Medication Dispense Status: Completed Total Allowed Fills: 1 Fills Dispensed: 0 metoprolol 50 mg oral tablet, extended release 50 mg, 1, tablet, By Mouth, Daily, # 90 tablet, Refills 3, Tot. Refills 3, Maintenance, 03/18/24 9:26:00 AM EDT, Route to Pharmacy Electronically, [id number], Partial fill upon patient request if the prescription is for a schedule II opioid drug., 153, cm, 03/03/24 13:49:00 EDT, Height, 112.6, kg, 01/28/24 14:46:00 EDT, Dry Weight Start Date: 03/18/24 Status: Ordered Medication Dispense Status: Completed Quantity: 90.0 Unit: tablet Total Allowed Fills: 4 Fills Dispensed: 0 metoprolol 50 mg oral tablet, extended release 50 mg, XL Tablet, By Mouth, 07/11/25 9:00:00 AM EDT Start Date: 07/11/25 Stop Date: 07/11/25 Status: Completed Medication Dispense Status: Completed Total Allowed Fills: 1 Fills Dispensed: 0 omeprazole 20 mg oral enteric coated capsule 1 capsule, By Mouth, Daily, # 90 capsule, 1 Refills, Maintenance, 05/08/25 9:47:00 PM EDT, [id number], 153, cm, 05/04/25 10:14:00 EDT, Height, 78.2, kg, 05/02/25 13:36:00 EDT, Dry Weight Start Date: 05/08/25 Status: Ordered Medication Dispense Status: Completed Quantity: 90.0 Unit: capsule Total Allowed Fills: 2 Fills Dispensed: 0 zinc oxide 40% topical ointment 1 applicator, Topically, Daily, for 14 days, to be applied to bilateral buttocks, # 30 Gm, 0 Refills, Acute 07/25/25 11:58:00 AM EDT, 07/11/25 11:58:00 AM EDT, Ointment, [id number], Partial fill upon patient request if the prescription is for a schedule II opioid drug., 153, cm, 07/09/25 3:38:00 EDT, Height, 81, kg, 07/08/25 1:42:00 EDT, Dry Weight Start Date: 07/11/25 Stop Date: 07/25/25 Status: Ordered Medication Dispense Status: Completed Quantity: 30.0 Unit: g Total Allowed Fills: 1 Fills Dispensed: 0 Problem List Condition Confirmation Course Effective Dates Status H ealth Status Informant Aortic stenosis Confirmed Active Severe obesity (BMI >= 40) Confirmed Active Chronic anemia Confirmed Active Chronic atrial fibrillation Confirmed Active Gastroesophageal reflux disease Confirmed Active History of heart failure Confirmed Active [facility] [employer] Coretta Castaneda [phone] Confirmed Active 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 Confirmed Active Chronic heart failure with preserved ejection fraction (HFpEF) Confirmed Active Hyperlipidemia Confirmed Active Hypertensive disorder Confirmed Active HTN (hypertension) Confirmed Active Hypothyroidism Confirmed Active Hypoxia Confirmed Active Obese class I Confirmed Active Wound, open, abdominal wall, anterior Confirmed Active Open wound of heel Confirmed Active Peripheral venous insufficiency Confirmed Active Pulmonary vascular congestion Confirmed Active Sacral ulcer Confirmed Active Type 2 diabetes mellitus Confirmed Active Results Radiology Reports * Exam Date Time Procedure Performing Provider Status 07/07/25 2:[address] Abd/Pelvis W/ IV Contrast Only Auth (Verified) Notes: (CT Abd/Pelvis W/ IV Contrast Only) Reason For Exam: lower abdominal pain, ?surgical incision infection;Other: RESULT: CT Abd/Pelvis W/ IV Contrast Only CT Abd/Pelvis W/ IV Contrast Only Hx of Present Illness: Pt with a very long ABD wound. Was seen at trauma clinic for follow up today. L corner of her wound had some concerning, green colored drainage. Provider asked her to be evaluated for possible wound infection. Pt offers no complaints.; Reason: Other:; lower abdominal pain, ?surgical incision infection; Clinical Question(s): Abscess; Order Comment: TECHNIQUE: Spiral CT through the abdomen and pelvis with IV contrast formatted in 3 planes. 100 cc of Isovue 300 was administered intravenously. This study was performed without oral contrast. Weight-based protocol using automatic tube modulation was used to optimize exposure parameters. CTDIvol Body: 15.30 mGy, DLP Body: 755 mGy*cm. COMPARISON: CT abdomen pelvis 06/11/2025. FINDINGS: Sliver Chopper View Findings, Lines and Tubes: None. Visualized Chest: Lung bases are clear. No pleural effusion. Mild cardiomegaly. No pericardial effusion. Heavy calcification of the mitral valve annulus. Diaphragm: Normal. Liver: Normal. Gallbladder: No CT evidence of gallbladder pathology. Bile ducts: No biliary ductal dilation. Spleen: Normal. Pancreas: Normal. Adrenal glands: Normal. Kidneys and ureters: No hydronephrosis, stones, or suspicious masses. Bladder: Partially degraded by streak artifact. No acute inflammatory change. Reproductive organs: Degraded by streak artifact. No definite acute process. Stomach, small bowel, and large bowel: Stomach, small bowel and large bowel are normal in caliber. No evidence of bowel obstruction. No acute inflammatory process of the bowel. Appendix: No evidence of appendicitis. Peritoneum and retroperitoneum: No ascites or pneumoperitoneum. No omental or mesenteric lesions. Lymph nodes: No enlarged lymph nodes. Blood vessels: Moderate atherosclerotic vascular calcification. No aortic aneurysm. No evidence of venous thrombosis. Abdominal and pelvic wall: Diffuse abdominal wall edema. Spanning the entire length of the wound ofthe pannus in the lower pelvis is a fluid collection. This measures approximately 41.3 x 1.5 x 1.9 cm. There is peripheral enhancement of the collection, though no internal gas. Overlying skin love. Skin thickening of the pannus is similar to the prior examinations. Soft tissue stranding superficial to the left sacroiliac joint is not significantly changed. Area of fat necrosis superolateral to the left hip is unchanged. Bones: No acute abnormality. Old healed right-sided rib fractures. Status post bilateral total hip arthroplasty. Moderate degenerative changes of the lumbar spine, most pronounced at T12-L1 and L4-L5. IMPRESSION: Elongated collection spanning the length of the abdominal wound measuring approximately 41.3 x 1.5 x 1.9 cm. There is peripheral rim enhancement, though no internal gas. Stability cannot be determined on the basis of the current examination. Differential considerations would include sequela of seroma or abscess in the appropriate clinical setting. WSN: [id number] Ordering Physician: Sheila Winkler Dictated By: Javid Chan MD Dictated Date/Time: 07/07/25 2:47 pm Reviewed By: Javid Chan MD Signed By: Javid Chan MD Signed Date/Time: 07/07/25 2:47 pm Transcribed By: BYRON Transcribed Date/Time: 07/07/25 2:18 pm Vital Signs Most recent to oldest [Reference Range]: 1 2 3 Height 153 cm (07/09/25 3:38 AM) 153 cm (07/08/25 1:42 AM) 153 cm (07/07/25 7:34 PM) Weight 81 kg (07/08/25 1:42 AM) 81 kg (07/07/25 10:56 AM) 81 kg (07/07/25 10:13 AM) Oxygen Saturation [94-100 %] 97 % (07/11/25 10:00 AM) 97 % (07/11/25 7:00 AM) 95 % (07/11/25 3:28 AM) Pulse Rate [55-90 bpm] 68 bpm (07/11/25 10:00 AM) 101 bpm *H* (07/11/25 8:51 AM) 101 bpm *H* (07/11/25 7:00 AM) Body Mass Index [18.5-24.99 kg/m2] 34.6 kg/m2 *>HHI* (07/08/25 1:42 AM) 34.6 kg/m2 *>HHI* (07/07/25 10:13 AM) Blood Pressure [90-138/55-84 mm Hg] 104/70mm Hg (07/11/25 10:00 AM) 129/86mm Hg (07/11/25 8:51 AM) 129/86mm Hg (07/11/25 8:51 AM) Respiratory Rate [16-30 br/min] 16 br/min (07/11/25 10:00 AM) 16 br/min (07/11/25 7:00 AM) 18 br/min (07/11/25 3:28 AM) Temperature [96.8-100.4 DegF] 97.9 DegF (07/11/25 10:00 AM) 98.0 DegF (07/11/25 7:00 AM) 97.9 DegF (07/11/25 3:28 AM) Mode of Delivery (Oxygen) Room air (07/11/25 10:00 AM) Room air (07/11/25 7:00 AM) Room air (07/11/25 3:28 AM) Blood pressure sites Arm, left (07/11/25 10:00 AM) Arm, left (07/11/25 7:00 AM) Arm, left (07/11/25 3:28 AM) Temperature Route Oral (07/11/25 10:00 AM) Oral (07/11/25 7:00 AM) Oral (07/11/25 3:28 AM) Dry Weight 81 kg (07/08/25 1:42 AM) 81 kg (07/07/25 10:56 AM) 81 kg (07/07/25 10:13 AM) Weight Obtained Via Patient/family state d (07/07/25 10:13 AM) Dry Weight Obtained Via Patient/family s tated (07/07/25 10:13 AM) Social History Social History Type Response Sexual Sexually involved in last 6 months: No. Smoking Status Never (less than 100 in lifetime) entered on: 09/21/19 Sex Sex Representation Female (finding) Status Not Admission evaluation note * Joselo PATTERSON, Colline: PERFORM, MODIFY Event Display: Admission Note Authored Date: [id number] Patient: ??ANNA HERNANDEZ ? Age:??80 Years?Sex:??Female?:??1945?? Chief Complaint Abdominal incision wound check History of Present Illness Anna is a 80?? female with a history of A-fib on Eliquis, hypertension, hyperlipidemia, type 2 diabetes, history of sacral osteomyelitis and right heel ulcer who was admitted 06/12 to 06/25 for chronicabdominal wounds.?? She underwent debridement with EGS on 06/16/2025 with wound measurements 42 x 15 cm.?? She then underwent complex closure of abdominal wound on 06/20/2025.?? Was discharged on a 14-day course of Augmentin and doxycycline.?? She was seen in the trauma surgery office on 07/04 with removal of her surgical drains and intermittent surgical love.?? At that time, the incision had areas of erythema and drainage suspicious for infection.?? She returned to the office on 07/07 for wound c heck.?? She continues to have erythema to the incision and drainage from the left aspect of her incision.??She denies any fevers, chills, and reports that she is in her usual state of health.?? On presentation to the emergency department, vital signs within normal limits.?? Laboratory work is without leukocytosis nor left shift.?? CT scan of the abdomen and pelvis was performed when he got and revealed an elongated collection spanning the length of the abdominal incision measuring x 1.5 x 1.9 cm approximately 3.3 cm deep to the skin surface.?? The read shows peripheral rim enhancement without internal gas. Review of Systems Constitutional:??No weight loss, fever, chills, weakness or fatigue. Allergy/Immune: Denies any??Eczema or hives Eyes:??No visual loss, blurred vision, double vision or yellow sclera ENT:??No hearing loss, sneezing, congestion, runny nose or sore throat. Respiratory:??No shortness of breath, cough or sputum production. Cardiovascular:??No chest pain, chest pressure or chest discomfort. No palpitations or pedal edema. Gastrointestinal:??No anorexia, nausea, vomiting or diarrhea. No abdominal pain or blood in stool. Genitourinary:??No burning micturition. No urinary frequency or incontinence. Neurologic:??No headache, dizziness, syncope, unilateral weakness, ataxia, numbness or tingling in the extremities. No change in bowel or bladder control. Musculoskeletal:??No muscle pain, back pain, joint pain or stiffness. Hematologic/Lymphatics:??No bleeding or bruising. No painful lymph nodes. Skin:??No rash or itching. Endocrine:??No reports of sweating. No cold or heat intolerance. No polyuria or polydipsia. Psychiatric:??No depression or anxiety. Physical Exam Vitals & Measurements T:??97.9?F?? HR:??77??(Peripheral)?? RR:??18?? BP:??131/83?? SpO2:??98%?? WT:??81??kg?? Constitutional: Alert, in no distress. Mental Status: Oriented to person, place and time. Head/Neck:??Normocephalic, atraumatic.?? Respiratory: Normal respiratory rate and effort. ?? Cardiovascular: Regular rate and rhythm. ?? Gastrointestinal: Abdomen soft, non-distended, non-tender Skin: Lower abdominal incision: majority of incision healing well with??intermittent love??place.?? Area of drainage and redness suspected for wound infection present to the left side of incision. Musculoskeletal: No edema. No gross deformities. Neuro: A&O x 4. Moves all extremities spontaneously. Psychiatric: Normal mood and affect Assessment/Plan Anna is a 80?? female with a history of A-fib on Eliquis, hypertension, hyperlipidemia, type 2 diabetes, history of sacral osteomyelitis and right heel ulcer who was admitted 06/12 to 06/25 for chronicabdominal wounds.?? She underwent debridement with EGS on 06/16/2025 with wound measurements 42 x 15 cm.?? She then underwent complex closure of abdominal wound on 06/20/2025.?? Was discharged on a 14-day course of Augmentin and doxycycline.?? She was seen in the trauma surgery office on 07/04 with removal of her surgical drains and intermittent surgical love.?? At that time, the incision had areas of erythema and drainage suspicious for infection.?? She returned to the office on 07/07 for wound c heck.?? She continues to have erythema to the incision and drainage from the left aspect of her incision.??She denies any fevers, chills, and reports that she is in her usual state of health.?? On presentation to the emergency department, vital signs within normal limits.?? Laboratory work is without leukocytosis nor left shift.?? CT scan of the abdomen and pelvis was performed when he got and revealed an elongated collection spanning the length of the abdominal incision measuring [id number] x 1.5 x 1.9 cm approximately 3.3 cm deep to the skin surface.?? The read shows peripheral rim enhancement without internal gas. ?? At this time, the patient is clinically stable and there are no overt signs of infection. Nor systemic infection.?? We will start the patient on broad-spectrum IV antibiotics and monitor the wound.??Will monitor the wound. The patient may require either a procedure to open up the incision to allowdrainage or intervention in the OR (given how deep the fluid collection is), however will monitor the wound on antibiotics for the time being.? Plan ??? Admit to acute ??? IV antibiotics: Vancomycin and Zosyn ??? Med rec ??? Monitor wound ??? Pain control as necessary ?? Discussed with Dr. 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 Chronic anemia Chronic atrial fibrillation Chronic heart failure with preserved ejection fraction (HFpEF) Gastroesophageal reflux disease History of heart failure HTN (hypertension) Hyperlipidemia Hypertensive disorder Hypothyroidism Hypoxia Obese class I Open wound of heel Peripheral venous insufficiency Pulmonary vascular congestion Sacral ulcer Severe obesity (BMI >= 40) Type 2 diabetes mellitus Wound, open, abdominal wall, anterior Procedure/Surgical History ???History of total replacement of bilateral hip joints Medications Inpatient Piperacillin-Tazobactam(Zosyn Extended IVPB), 3.375 Gm, IVPB, Every 8 hours Vancomycin(Vancomycin IVPB), 1250 mg, 15 mg/kg, IVPB, Every 12 hours Home Acetaminophen(acetaminophen 325 mg oral tablet), 650 mg= 2 tablet, By Mouth, 3 times a day, PRN apixaban(Eliquis 5 mg oral tablet), 1 tablet, By Mouth, 2 times a day Atorvastatin(atorvastatin 40 mg oral tablet), 1 tablet, By Mouth, Daily at bedtime Bumetanide(bumetanide 1 mg oral tablet), 1 mg= 1 tablet, By Mouth, Daily Collagenase Topical(collagenase topical 250 u/gm ointment), 1 application, Topically, Daily Digoxin(digoxin 0.125 mg oral tablet), 1 tablet, By Mouth, Daily at bedtime Emollients, Topical(Vashe Topical Solution), 475 mL, Topically, Daily Levothyroxine(levothyroxine 0.112 mg oral tablet), 112 mcg= 1 tablet, By Mouth, Daily, 1 refills Lisinopril(lisinopril 5 mg oral tablet), 5 mg= 1 tablet, By Mouth, Daily Metformin(metFORMIN 850 mg oral tablet), 850 mg= 1 tablet, By Mouth, 2 times a day Metoprolol(metoprolol 50 mg oral tablet, extended release), 50 mg= 1 tablet, By Mouth, Daily, 3 refills Miscellaneous Rx(CBC in 3 days), See Instructions Omeprazole(omeprazole 20 mg oral enteric coated capsule), 1 capsule, By Mouth, Daily, 1 refills Sodium Hypochlorite Topical(Dakins Quarter Strength 0.125% topical solution) Vitamin A & D Topical(A+D topical ointment), Topically, Daily Zinc Oxide Topical(zinc oxide 40% topical ointment), 1 application, Topically, Daily Allergies oxyCODONE (Moderate)??AMS, nausea, sweating Latex Social History Alcohol Use:Never Electronic Cigarette/Vaping E-Cigarette Use:Never Employment/School Status:Retired Exercise Self assessment:Good condition Home/Environment Living situation:Home/Independent Nutrition/Health Diet: (Don't list allergies here)Regular Sexual Sexually involved in last 6 months:No Substance Abuse Use:Never Tobacco Use:Never (less than 100 in lifetime) Family History Arthritis: Mother. Hypertension: Mother and Father. Immunizations Vaccine Date Status RSV vaccine preF3, recombinant 09/18/2023 Recorded influenza virus vaccine, inactivated 08/15/2023 Recorded SARS-CoV-2(COVID-19)mRNA-LNP vac([id number]) 08/14/2023 Recorded tetanus/diphtheria/pertussis, acel(Tdap) 06/11/2023 Recorded pneumococcal 20-valent conjugate vaccine 04/15/2023 Given [id number] 12y+ bivalent booster vax 12/29/2022 Recorded influenza virus vaccine, inactivated 08/06/2022 Recorded SARS-CoV-2 mRNA ([id number]) vax 06/08/2022 Recorded SARS-CoV-2 (COVID-19) mRNA BNT-162b2 vac 08/30/2021 Recorded influenza virus vaccine, inactivated 08/12/2021 Recorded SARS-CoV-2 (COVID-19) mRNA BNT-162b2 vac 02/12/2021 Given SARS-CoV-2 (COVID-19) mRNA BNT-162b2 vac 02/12/2021 Recorded SARS-CoV-2 (COVID-19) mRNA BNT-162b2 vac 01/22/2021 Given SARS-CoV-2 (COVID-19) mRNA BNT-162b2 vac 01/22/2021 Recorded influenza virus vaccine, inactivated 08/15/2020 Recorded Influenza Virus Vaccine (oldterm) 08/09/2020 Recorded Comments : [facility] influenza virus vaccine, inactivated 09/21/2019 Given Hospital Progress note * Eliana Polanco RN: PERFORM, SIGN, VERIFY Event Display: Progress Note Hospital Authored Date: [id number] Patient: ANNA HERNANDEZ Age: 80 years Sex: Female : 1945 Associated Diagnoses: None Author: Eliana Polanco RN Findings Problem Related to Alteration in Gastrointestinal : Alteration in Gastrointestinal Func/new 07/11/2025 10:52 EDT Alteration in GI status Related to Abdominal Surgery Goals & Outcomes, Gastrointestinal Establish a regular pattern of elimination for pt, Nutritional intake is adequate for metabolic needs, Pt will achieve normal/improved fluid balance, Pt will have a bowel movement prior to discharge, Pt will maintain adequate GI function appropriate for pt, Ptwill maintain normal elimination patterns, Pt will resume/maintain adequate hemodynamic status, Pt w ill tolerate age appropriate diet prior to discharge, Pt will experience progressive wound healing Interventions, Gastrointestinal Assess/monitor abdomen for distention, tenderness, Assess/monitor abdominal girth & bowel function, Assess/monitor bowel pattern, bowel sounds, flatus, Assess/monitor number of bowel movements, Assess/monitor color, quantity, quality, consistency of stoo, Assess/monitor pt for nausea, vomiting BH Goals/Interventions, Gastrointestinal Yes Gastrointestinal, Problem Start 07/08/2025 1:36 Reviewed plan with, Gastrointestinal Patient Patient Progression, Gastrointestinal Pt progressing according to plan . Nursing Data Vital Signs : VITAL SIGNS SECTION 07/11/2025 10:00 EDT Temperature 97.9 DegF Temperature Route Oral Pulse Rate 68 bpm Respiratory Rate 16 br/min Systolic Blood Pressure 104 mm Hg Diastolic Blood Pressure 70 mm Hg Blood pressure sites Arm, left Pulse Pressure 34 mm Hg Oxygen Saturation 97 % Mode of Delivery (Oxygen) Room air . Narrative/Incidental I:please see plan of care above. Evaluation E: Patient is alert and orientedx4. Denies chest pain and shortness of breath, +pp, +1 edema to ankles, ambulates iwth 1 assist with walker, steady gait. Lungs are clear, no cough or wheezing presenton room air.Abdomen is soft, round, non tender, low abdomen love cover with santyl and DSD with some drainange positure to coccyx covered with triad on theraptuic bed. Denies pain at this time.VOiding clear yellow urine. +gas, LBM 07/09,toleratin diabetic diet. Call cueavs within reach, hourly rounding and care ongoing.. * Cristina Sepulveda RN: PERFORM, SIGN, VERIFY Event Display: Progress Note Hospital Authored Date: Patient: ANNA HERNANDEZ Age: 80 years Sex: Female : 1945 Associated Diagnoses: None Author: Cristina Sepulveda RN Findings Problem Related to Alteration in Gastrointestinal : Alteration in Gastrointestinal Func/new 07/10/2025 22:00 EDT Alteration in GI status Related to Abdominal Surgery Goals & Outcomes, Gastrointestinal Establish a regular pattern of elimination for pt, Nutritional intake is adequate for metabolic needs, Pt will achieve normal/improved fluid balance, Pt will have a bowel movement prior to discharge, Pt will maintain adequate GI function appropriate for pt, Ptwill maintain normal elimination patterns, Pt will resume/maintain adequate hemodynamic status, Pt w ill tolerate age appropriate diet prior to discharge, Pt will experience progressive wound healing Interventions, Gastrointestinal Assess/monitor abdomen for distention, tenderness, Assess/monitor abdominal girth & bowel function, Assess/monitor bowel pattern, bowel sounds, flatus, Assess/monitor number of bowel movements, Assess/monitor color, quantity, quality, consistency of stoo, Assess/monitor pt for nausea, vomiting, Assess/monitor effects of re-hydration, Assess/monitor intake &output, Assess if pt tolerating diet, DVT prophylaxis as ordered, Elevate HOB to facilitate lung expansion, prevent aspiration, Taking PO: Encourage/monitor intake & swallowing ability, Teach Pt/caregiver on bowel elimination interventions, Teach/encourage deep breath & cough exercises, Teac h/encourage use of incentive spirometer Goals/Interventions, Gastrointestinal Yes Gastrointestinal, Problem Start 07/08/2025 1:36 Reviewed plan with, Gastrointestinal Patient Patient Progression, Gastrointestinal Pt progressing according to plan . Alteration in Integumentary : Alteration in Integumentary/new 07/10/2025 22:00 EDT Alteration in Integumentary Related to Other: wound infection Goals & Outcomes, Integumentary Nutritional intake is adequate for metabolic needs, Wound will progress towards healing Interventions, Integumentary Encourage & assist pt to change position frequently, Ensure reliefmodes are on mattress surface & utilized, Keep bed as flat as tolerated to reduce shearing, Keep linen clean, dry and wrinkle free, Keep skin clean & dry, Minimize friction, shear and moisture, Monitor reddened areas for continued or increasing reddness, Record extent of impaired skin integrity, Teach Pt/S.O. risks of & measures to prevent skin breakdown BH Goals/Interventions, Integumentary Yes Integumentary, Problem Start 07/09/2025 7:39 Reviewed plan with, Integumentary Patient Patient Progression, Integumentary Pt progressing according to plan . Nursing Data Vital Signs : VITAL SIGNS SECTION 07/10/2025 19:46 EDT Temperature 97.4 DegF Temperature Route Oral Pulse Rate 92 bpm H Respiratory Rate 19 br/min Systolic Blood Pressure 109 mm Hg Diastolic Blood Pressure 68 mm Hg Blood pressure sites Arm, left Pulse Pressure 41 mm Hg Oxygen Saturation 97 % Mode of Delivery (Oxygen) Room air . Evaluation E: Patient alert and oriented, vss. Hard of hearing. Denies pain. Patient denies numbness or tingling to extremities. Lung sounds clear, on room air. Patient denies shortness of breath. Patient utilizing incentive spirometer. No edema. Lower legs red and tight with vascular discoloration. Circulation, movement, and sensation present in all four extremities. Abdomen is soft, round, and nontender. Patient denies nausea. Last bowel movement 07/09. Patient up to bathroom with assist with a walker. Patient voiding clear yellow urine. Patient has transverse low abdominal dry dressings with small area of shadowing on the left. All are intact. Patient on therapeutic bed. . Discharge Information Rehabilitation Discharge : Rehab Discharge Index 07/10/2025 8:58 EDT Comments on treatment indicated 80 y/o F admitted for Abdominal incision wound check. WBAT.Pt would benefit from skilled PT with emphasis on bed mobility, transfers, amb c RW, therex. Rec: anticipate HWS. Walker: distance 10-20 Distance pt will ambulate 50' Full chart review completed Yes Other findings Patient is a low complexity evaluation. Plan of care PT Gait training, Transfer training, Therapeutic exercise, Functional Activities, Neuromuscular education * Hedy Romero RN: PERFORM, MODIFY, SIGN, VERIFY Event Display: Progress Note Hospital Authored Date: [id number] Patient: ANNA HERNANDEZ Age: 80 years Sex: Female : 1945 Associated Diagnoses: None Author: Hedy Romero RN Findings Problem Related to Alteration in Gastrointestinal : Alteration in Gastrointestinal Func/new 07/10/2025 8:00 EDT Alteration in GI status Related to Abdominal Surgery Goals & Outcomes, Gastrointestinal Establish a regular pattern of elimination for pt, Nutritional intake is adequate for metabolic needs, Pt will achieve normal/improved fluid balance, Pt will have a bowel movement prior to discharge, Pt will maintain adequate GI function appropriate for pt, Ptwill maintain normal elimination patterns, Pt will resume/maintain adequate hemodynamic status, Pt w ill tolerate age appropriate diet prior to discharge, Pt will experience progressive wound healing Interventions, Gastrointestinal Assess/monitor abdomen for distention, tenderness, Assess/monitor abdominal girth & bowel function, Assess/monitor bowel pattern, bowel sounds, flatus, Assess/monitor number of bowel movements, Assess/monitor color, quantity, quality, consistency of stoo, Assess/monitor pt for nausea, vomiting, Assess/monitor effects of re-hydration, Assess/monitor intake &output, Assess if pt tolerating diet, Taking PO: Encourage/monitor intake & swallowing ability,Teach Pt/caregiver diet & give copy of dietary instructions, Teach Pt/caregiver on bowel elimination interventions, Teach Pt/caregiver re: importance of bowel regime, Teach Pt/caregiver re: nutritional intake & dietary restrict, Teach/encourage deep breath & cough exercises, Teach/encourage use of incentive spirometer BH Goals/Interventions, Gastrointestinal Yes Gastrointestinal, Problem Start 07/08/2025 1:36 Reviewed plan with, Gastrointestinal Patient Patient Progression, Gastrointestinal Pt progressing according to plan . Alteration in Integumentary : Alteration in Integumentary/new 07/10/2025 8:00 EDT Alteration in Integumentary Related to Other: wound infection Goals & Outcomes, Integumentary Nutritional intake is adequate for metabolic needs, Wound will progress towards healing Interventions, Integumentary Cleanse all wounds with Normal Saline, Consult Wound Care as needed for further interventions, Encourage & assist pt to change position frequently, Encourage & assist with range of motion exercises, Encourage family participation in pt's care as they are able, Ensure relief modes are on mattress surface & utilized, Increase turning frequency if red or blanched areas appear, Keep bed as flat as tolerated to reduce shearing, Keep linen clean, dry and wrinkle free, Keep skin clean & dry, Maintain sterile technique with dressing changes, Minimize friction, shear and moisture, Monitor reddened areas for continued or increasing reddness, Record extent of impaired skin integrity, Relieve pressure off bony areas, Reposition pt off reddened areas, TeachPt/caregiver s/s of infection, Teach Pt/S.O. risks of & measures to prevent skin breakdown, Usebarrier cream/ointment if pt's skin is frequently moist, Resolved problem, Interventions no longer in effect Goals/Interventions, Integumentary Yes Integumentary, Problem Start 07/09/2025 7:39 Reviewed plan with, Integumentary Patient Patient Progression, Integumentary Pt progressing according to plan . Narrative/Incidental P: Alteration in Gastrointestinal and Integumentary I: See above care plan E: Upon assessment patient reports no pain. Pain well managed with Tylenol and rest and repositioning. Patient is alert and oriented to person, place, time, and situation. Patient denies numbness andtingling. Patient denies dizziness. Patient is hard of hearing. Lung sounds clear on room air. Patient denies shortness of breath. Patient utilizing incentive spirometer, reaching 1000, and able to demonstrate usage. No edema noted upon assessment. Circulation, movement, and sensation present in all four extremities. Abdomen is soft, round, and nontender. Patient denies nausea. Last bowel movement 07/09. Bowel sounds present in all four quadrants. Patient passing gas and belching. Patient tolerat ing diabetic diet. Patient 1 assist with a walker ambulating around the room and unit steady on herfeet approximately 100 feet at a time. Patient up to chair on shift. Patient voiding clear yellow urine. Patient left lower abdominal DSD, DSD changed by MD at bedside on AM rounds, dressing clean, dry, and intact. Patient has unknown etiology wound on coccyx, see CIS for image, z-guard applied. Pat ient able to self turn and reposition. Patient encouraged to turn and reposition frequently. Patient on therapeutic bed. Bed locked and in lowest position. Call cuevas in reach. . Discharge Information Rehabilitation Discharge : Rehab Discharge Index 07/10/2025 8:58 EDT Comments on treatment indicated 80 y/o F admitted for Abdominal incision wound check. WBAT.Pt would benefit from skilled PT with emphasis on bed mobility, transfers, amb c RW, therex. Rec: anticipate HWS. Walker: distance 10-20 Distance pt will ambulate 50' Full chart review completed Yes Other findings Patient is a low complexity evaluation. Plan of care PT Gait training, Transfer training, Therapeutic exercise, Functional Activities, Neuromuscular education Consult note * Jagdish Montalvo RN: PERFORM, SIGN, VERIFY Event Display: Consultation Note Authored Date: [id number] Patient: ANNA HERNANDEZ Age: 80 years Sex: Female : 1945 Associated Diagnoses: None Author: Jagdish Montalvo RN History of Presenting Problem Bilateral Buttocks 07/11 Left Posterior Iliac Crest 07/11 Right Heel 07/11 Date of Service 07/11/2025 Location- Right Heel Etiology- Unstageable Pressure Injury Present on Admission Measurements- 0.6cm x 1.2cm Wound Bed- full thickness skin loss covered by thick dry stable brown/black eschar and callous Edges- attached, covered by penaloza callous Dalila Wound- circumferential soft blanchable erythema Drainage- none Odor- none No fluctuance or induration Pain- patient denies pain with palpation Goals- protect from friction/trauma, offload pressure, maintain integrity/stability, antimicrobial painting with Betadine Location- Bilateral Buttocks Etiology- Moisture Associated Skin Damage (MASD) w/ Friction Component Wound Bed- mirrored partial thickness skin loss on fleshy aspect of bilateral buttocks with dry light pink wound bed Edges- defined, attached Dalila Wound- mirrored easily blanchable hyperpigmentation across bilateral buttocks... 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 Please ensure to utilize pressure prevention interventions Wound RN consult entered to assess buttock wound and make topical recommendations. Patient presented with erythema of her abdominal wound during a surgical follow up appointment and was admitted for further management of the wound with PMH significant for Afib, HTN, HLD, T2DM, sacral OM and rightheel wound, debridement of abdomen and complex closure on 06/16&06/20. Prior to entering the room,direct care RN states patient is appropriate for consultation. Upon entering the room patient is lying in bed. Wound RN role explained and patient is agreeable to assessment, as well as, photodocumentation. Anna states she regularly followed with [facility] in [place], [place] until recently when they discharged her from care due to the significant inprovement of her heel and posterior iliac crest wounds. Anna was under the impression the right heel wound was completely healed, howeverwe discussed the presence of the stable black eschar and callous covering the wound bed. Anna shared Don't you think less is more? when elaborating on her wishes to remove daily wound care from her care plan. She was agreeable to daily painting with Betadine to maintain stability of the eschar. Anna reports dual continnece at baseline. She states she only wears a brief to bed for her own dignity in the event of an accident however she rarely wakes up with a soiled brief and reports removing any briefs upon awakening. Anna was able to turn to her right side independently. Her overnight brief was removed for visualization of the intact scar tissue over her previous stage 4 pressure injury and the bilateral buttock MASD described in detail above. Anna states the skin breakdown on herbilateral buttocks is from using a PrimaFit during her last admission. She adamantly refused cleansing of the residual zinc oxide barrier cream, stating it caused significant discomfort. The immediate periwound of her partial thickness skin loss on the fleshy aspect of her buttocks was easily blanchable. Anna and I reviewed her high risk for pressure injury development due to her current integumentary status and the location of the skin loss. We reviewed the importance of moisture management and pressure offloading strategies. She was agreeable to daily Triad application at home and we reviewed how to apply it appropriately. My depiction of wounds and my recommendations were given to direct care RN and [employer] message sent to Yovanny Fox NP as well. Recommendations: 1.) Bilateral Buttocks- Cleanse with pH balanced cleanser. Pat dry. Apply thin layer of Triad to wound bed. Only pat dry, NO SCRUB/RUB when soiling occurs. Reapply thin layer daily and PRN if any episode of incontinence 2.) Right Heel- Cleanse with Saline. DRY THOROUGHLY. Veteran with Betadine. Allow to air dry. PerformDaily. DO NOT COVER 3.) Continue use of specialty bed/low air loss mattress 4.) Turn and reposition every 2 hours and PRN 5.) Continue to offload bony prominences, utilize wedges from distribution 6.) Float heels, utilize [employer]el[employer]ix heel protector boots 7.) Continue to provide optimal nutritional support 8.) Provide pressure redistribution cushion (rodriguez waffle cushion from distribution) to chair when patient OOB Please reconsult for wound care RNs for deterioration in wound/skin status Plan Time spent 46-60 minutes Note * Eliana Polanco RN: PERFORM Event Display: Discharge/Transfer Note Hospital Authored Date: [id number] Nursing Discharge Note Entered On: 07/11/2025 14:48 EDT Performed On: 07/11/2025 14:48 EDT by Eliana Polanco RN Nursing Discharge Note 2 Discharge Time : 07/11/2025 14:50 EDT Discharge Level of Care at Discharge : Homehealth/VNA Discharge VNA/Hospice/Home Care(v001) : [facility]AD ? IO Patient Left Unit Via : Wheelchair Patient Accompanied Off Unit with : Significant other DC Instructions Provided & Signed by Pt : Yes Patient Understands D/C Instructions : Yes Patient Instructions Discharge Signed : Yes Did Pt have Specialty Bed or Wound Vac : Yes Eliana Polanco RN - 07/11/2025 14:48 EDT * Joselo PATTERSON, Christophe: PERFORM, MODIFY, MODIFY Event Display: Discharge/Transfer Note Hospital Authored Date: [id number] Patient: ??ANNA HERNANDEZ ? Age:??80 Years?Sex:??Female?:??1945?? Admit Date Admission Date: 07/07/2025 Discharge Date 07/11/2025 Discharge Diagnoses General medical Hypothyroidism Diagnoses Infected surgical wound ??(T81.49XA) Hospital Course Anna is a 80?? female with a history of A-fib on Eliquis, hypertension, hyperlipidemia, type 2 diabetes, history of sacral osteomyelitis and right heel ulcer who was admitted 06/12 to 06/25 for chronicabdominal wounds.?? She underwent debridement with EGS on 06/16/2025 with wound measurements 42 x 15 cm.?? She then underwent complex closure of abdominal wound on 06/20/2025.?? Was discharged on a 14-day course of Augmentin and doxycycline.?? She was seen in the trauma surgery office on 07/04 with removal of her surgical drains and intermittent surgical love.?? At that time, the incision had areas of erythema and drainage suspicious for infection.?? She returned to the office on 07/07 for wound c heck.?? She continued to have erythema to the incision and drainage from the left aspect of her incision. She was sent to the ED from the traumas surgery office given concern for wound infection/abscess formation. CT scan of the abdomen and pelvis was performed??and revealed an elongated collectionspanning the length of the abdominal incision measuring approximately 41 x 1.5 x 1.9 cm approximately 3.3 cm deep to the skin surface.??She was monitored on IV antibiotics (Vancomycin and Zosyn) and then transitioned to PO antibiotics (Augmentin/Doxycycline) on 07/10. On repeat evaluation her incision appears stable with mild induration, erythema, and drainage. Will continue with local wound care (dry sterile dressing) to the incision. Wound care evaluated the patient and recommended Betadine to pressure injury on right heel and zinc to bilateral buttocks (prescribed).??On 07/11,??patient was deemed hemodynamically and neurologically stable to be discharged. Patient is without pain, tolerating d iet, ambulating at baseline, voiding adequately, and has baseline bowel function. Patient will be discharged with acetaminophen, Augmentin, and doxycycline for 2 weeks; zinc ointment for the buttocks. She has follow up??scheduled on 07/25 at 2:40PM.?? Objective/Physical Exam on Day of Discharge Vitals & Measurements T:??97.9?F?? HR:??68??(Peripheral)?? RR:??16?? BP:??104/70?? SpO2:??97%?? HT:??153??cm?? WT:??81??kg?? BMI:??34.6?? Constitutional: Alert, in no distress. Mental Status: Oriented to person, place and time. Head/Neck:??Normocephalic, atraumatic.?? Respiratory: Normal respiratory rate and effort. ?? Cardiovascular: Regular rate. Gastrointestinal: Abdomen soft, non-distended, non-tender Skin: Lower abdominal incision: majority of incision healing well with??intermittent love??place.?? Area of drainage and erythema present on the left side of incision. Musculoskeletal: No edema. No gross deformities. Neuro: A&O x 4. Moves all extremities spontaneously. Psychiatric: Normal mood and affect Assessment/Plan Anna is a 80?? female with a history of A-fib on Eliis, hypertension, hyperlipidemia, type 2 diabetes, history of sacral osteomyelitis and right heel ulcer who was admitted 06/12 to 06/25 for chronicabdominal wounds.?? She underwent debridement with EGS on 06/16/2025 with wound measurements 42 x 15 cm.?? She then underwent complex closure of abdominal wound on 06/20/2025.?? Was discharged on a 14-day course of Augmentin and doxycycline.?? She was seen in the trauma surgery office on 07/04 with removal of her surgical drains and intermittent surgical love.?? At that time, the incision had areas of erythema and drainage suspicious for infection.?? She returned to the office on 07/07 for wound c heck.?? She continued to have erythema to the incision and drainage from the left aspect of her incision. She was sent to the ED from the traumas surgery office given concern for wound infection/abscess formation. CT scan of the abdomen and pelvis was performed??and revealed an elongated collectionspanning the length of the abdominal incision measuring approximately 41 x 1.5 x 1.9 cm approximately 3.3 cm deep to the skin surface.??She was monitored on IV antibiotics (Vancomycin and Zosyn) and then transitioned to PO antibiotics (Augmentin/Doxycycline) on 07/10. On repeat evaluation her incision appears stable with mild induration, erythema, and drainage. Will continue with local wound care (dry sterile dressing) to the incision. Wound care evaluated the patient and recommended Betadine to pressure injury on right heel and zinc to bilateral buttocks (prescribed).??On 07/11,??patient was deemed hemodynamically and neurologically stable to be discharged. Patient is without pain, tolerating d iet, ambulating at baseline, voiding adequately, and has baseline bowel function. Patient will be discharged with acetaminophen, Augmentin, and doxycycline for 2 weeks; zinc ointment for the buttocks. She has follow up??scheduled on 07/25 at 2:40PM.?? Plan: - Acetaminophen for pain control - Augmentin and Doxycycline x 2 weeks - Dry sterile dressing over abdominal incision; change daily and PRN for soilage - Instructed patient to continue to follow up with her Outpatient Wound Care services. Betadine to heel and zinc ointment to bilateral buttocks Pending Results none Future Appointments Thursday 2:40 PM EDT ?? Type: Post-Op With: Gustavo Augustine DO Where: [facility] [address] [place] [address]- Status: Pending PCP Follow-Up/Heads-Up Please follow up with PCP Patient Discharge Condition Good Discharge Disposition Home with services Home Health Face to Face *Denotes mandatory rosales ?? *I certify that this patient is under my care and that I or an allowed non- physician working with me had a face to face encounter with the patient on this date:??07/11/2025 12:19 ?? *The encounter with the patient was in whole, or in part, for the following medical condition, which is the primary diagnosis(es) for home health care:??General medical ([id number]) Infected surgical wound (T81.49XA) Hypothyroidism (E03.9) ?? *Select the indications for the discipline/s that are being arranged for this patient. Nursing (select all that apply): [_] None [x] Medication management (reconciliation, teaching)?? [_] Chronic disease management?? [x] Wound care and treatment?? Dry sterile dressing over abdominal incision; change daily and PRN for soilage Betadine to right heel and zinc ointment to bilateral buttocks. To be done daily [_] Home safety evaluation [_] Administer SQ/IM/IV medications?? [_] Cath care?? [_] Drain care?? [_] Trach or GT care?? Other _ Occupation Therapy (select all that apply): [x] None [_] ADL Management [_] Fall prevention training [_] Energy conservation [_] Cognitive training Other _ Physical Therapy (select all that apply): [_] None [x] Functional mobility training [x] Home exercise program to strengthen [x] Increase ROM?? [x] Falls prevention training [_] Home maintenance program for chronic disease Other _ Speech Therapy (select all that apply): [x] None [_] Swallow evaluation and training [_] Speech and language training [_] Cognitive training to process, organize, and/or recall information Other _ ? *Homebound due to (select all that apply): [_] Inability to leave home without assistance/supervision [_] Inability to ambulate without assistance [x] Pain [x] Decreased strength and endurance [_] Unsteady gait [_] Severe SOB and fatigue [_] Impaired transfers [_] Inability to negotiate stairs [_] Limited weight bearing [_] Mental status change? *Physician Signature:??Dr. Christophe Josue, under the??supervision of Dr. Yehuda Cardona ?? *By signing this, I certify that I have personally evaluated the patient and agree with the findings and recommendations as documented above. ? Inpatient Medications Medications (15) Active SCHEDULED: (14) Acetaminophen 325 mg Tablet (acetaminophen 325 mg oral tablet) ??975 mg, By Mouth, Every 6 hours Amoxicillin 875 mg/Clavulanate 125 mg Tablet (Augmentin 875 Tablet) ??1 tablet, By Mouth, 2 times aday Apixaban 5 mg Tablet (Eliquis) ??5 mg, By Mouth, 2 times a day Atorvastatin 40 mg Tablet (atorvastatin 40 mg oral tablet) ??40 mg, By Mouth, Daily at bedtime Bumetanide 1 mg Tablet (bumetanide 1 mg oral tablet) ??1 mg, By Mouth, Daily Collagenase Topical Oint (30 Gm) (Santyl Topical Oint) ??1 application, Topically, Daily Digoxin 0.125 mg Tablet (digoxin 0.125 mg oral tablet) ??125 mcg, By Mouth, Daily at bedtime Doxycycline 100 mg Tablet (Doxycycline Tablet) ??100 mg, By Mouth, Every 12 hours Insulin Lispro 100 units/mL Inj (Insulin LISPRO Sliding Scale) ??2-10 units, Subcutaneous Injection, 3 times a day before meals Levothyroxine 112 mcg Tablet (levothyroxine 0.112 mg oral tablet) ??112 mcg, By Mouth, Daily Lisinopril 5 mg Tablet (lisinopril 5 mg oral tablet) ??2.5 mg, By Mouth, Daily Metoprolol 50 mg XL Tablet (metoprolol 50 mg oral tablet, extended release) ??50 mg, By Mouth, Daily Pantoprazole 20 mg EC Tablet (pantoprazole 20 mg oral delayed release tablet) ??20 mg, By Mouth, Daily Vashe Wound Care Emollient/Cleanser (Vashe Topical Solution) ??475 mL, Topically, Daily CONTINUOUS: (0) PRN: (1) Ondansetron 2mg/mL Inj (2mL Vial) (Zofran Inj) ??4 mg, IV Push, Every 6 hours Discharge Medications Acetaminophen (acetaminophen 325 mg oral tablet)??975 Milligram By Mouth Every 6 hours for 7 Days Amoxicillin-Clavulanate (amoxicillin-clavulanate 875 mg-125 mg oral tablet)??875 Milligram By Mouth2 times a day for 14 Days apixaban (Eliquis 5 mg oral tablet)??1 tab(s) By Mouth 2 times a day Atorvastatin (atorvastatin 40 mg oral tablet)??1 tab(s) By Mouth Daily at bedtime Digoxin (digoxin 0.125 mg oral tablet)??1 tablet By Mouth Daily at bedtime Doxycycline (doxycycline hyclate 100 mg oral tablet)??100 Milligram By Mouth Every 12 hours for 14 Days Levothyroxine (levothyroxine 0.112 mg oral tablet)??1 tab(s) 112 Microgram By Mouth Daily Lisinopril (lisinopril 2.5 mg oral tablet)??2.5 Milligram 1 tablet By Mouth Daily Metformin (metFORMIN 850 mg oral tablet)??1 tab(s) 850 Milligram By Mouth 2 times a day Metoprolol (metoprolol 50 mg oral tablet, extended release)??50 Milligram 1 tablet By Mouth Daily Miscellaneous Rx (CBC in 3 days)??See Instructions Forward the results to Luis Manuel VILLANUEVA, Geo Omeprazole (omeprazole 20 mg oral enteric coated capsule)??1 capsule By Mouth Daily Vitamin A & D Topical (A+D topical ointment) Topically Daily applied to lower extremities for dry skin Zinc Oxide Topical (zinc oxide 40% topical ointment)??1 applicator Topically Daily for 14 Days to be applied to bilateral buttocks Labs Last 24 Hours BLOOD COUNT & DIFF ? Event Name?? Event Result?? Date/Time?? WBC 8.2 k/mm3 07/11/25 05:50:00 RBC 3.19 m/mm3??Low 07/11/25 05:50:00 Hgb 8.9 Gm/dL??Low 07/11/25 05:50:00 Hct 28.9 %??Low 07/11/25 05:50:00 MCV 90.6 femtoliters 07/11/25 05:50:00 MCH 27.9 pg 07/11/25 05:50:00 MCHC 30.8 Gm/dL??Low 07/11/25 05:50:00 Platelet Count 367 k/mm3 07/11/25 05:50:00 MPV 10.9 femtoliters 07/11/25 05:50:00 Nucleated RBC (Automated) 0 #/100 WBC'S 07/11/25 05:50:00 ? CHEM GENERAL ? Event Name?? Event Result?? Date/Time?? Sodium 137 mmol/L 07/11/25 05:54:00 Chloride 101 mmol/L 07/11/25 05:54:00 Bicarbonate Level 25 mmol/L 07/11/25 05:54:00 Anion Gap 11 mmol/L 07/11/25 05:54:00 Glucose Level 106 mg/dL??High 07/11/25 05:54:00 BUN 25 mg/dL??High 07/11/25 05:54:00 Creatinine-Blood 0.78 mg/dL 07/11/25 05:54:00 Calcium, Ionized pH Corrected 1.2 mmol/L 07/11/25 05:54:00 Phosphorus 3 mg/dL 07/11/25 05:54:00 Magnesium 1.4 mg/dL??Low 07/11/25 05:54:00 ? Patient Instructions Trauma Surgery Discharge Instructions: ?? Diet: ? Continue your regular diet. Drink 6 to 8 glasses of fluids per day. ?No alcoholic beverages while taking narcotic pain medications. ?? Activity:?Avoid any activity that causes discomfort.?Normal daily activities are safe. Walkingis allowed and encouraged.? Continue using your incentive spirometer a few times per hour. Continue working on taking deep breaths.?Avoid straining, vigorous sports or lifting anything more than 10 pounds for 4 weeks, or as directed by your surgeon. ?You may drive whenever comfortable, but do not go alone the first time and do not driveafter taking narcotic pain medications. ?? Dressings and Wound care: ?You may remove your bandage and shower as necessary. Please let the water run down ontothe incision, do not scrub. Please re-dress with dry sterile dresing ? Please apply Betadine to heel and zinc ointment to bilateral buttocks, per wound care recommendations? Medications: ?Pain:?Please take acetaminophen (Tylenol) for pain.? Antibiotics:?Please take Augmentin and Doxycycline for 14 days, as prescribed ?Home Medications: Resume any medications your primary physician has prescribed unless specifically instructed. ?Stool softener:?Colace 100 mg??or its generic form??DOCUSATE??tablet by mouth twice a day as directed. Some people will need to take stool softener short-term after surgery. If you have chronic diarrhea or inflammatory bowel disease, you should not take stool softener unless you are c onstipated ?Constipation:?Take??Milk of Magnesia??as directed on the bottle every 6 hours for 24hours, OR Miralax at night per directions.?These are both available over the counter.?If thisfails to relieve the problem, call the office. ?? Expect the following: ?Fatigue, especially in the first 24 hours. ?Pain or discomfort, which will lessen as time passes.?Constipation is a possibility, especially if narcotic pain relievers are needed. ?? Call the office or answering service immediately if any of the following occur:?Severe shortness of breath ?Severe pain not relieved by pain medication. ?Uncontrollable bleeding ?Any bright redness, red streaking, or swelling around your incision, or any bad odor, or pus-like drainage coming from your incision. ?Temperature more than??101 F (38 C). ?Repeated nausea and vomiting or inability to tolerate or hold down fluids ?Inability to urinate. ?? Post-operative appointments: ? You have a follow up appointment in the trauma surgery office 07/25/25 at 2:40PM ?? Problems or Questions: ?Office hours are 8:30 am to 5:00 pm Thursday thru Thursday. It is best to call during office hours with routine questions.?You may reach the clinical staff during office hours at ?If you have an after-hours emergency, you can call the answering service at . ?If you cannot reach our office and your problem truly requires emergency attention, go to??[facility] Emergency Room??or the nearest emergency room.?? * Eliana Polanco RN: PERFORM Event Display: Patient Education/Instruction Authored Date: [id number] Inpatient Adult Discharge Instructions. [address] [address] Name: ANNA HERNANDEZ : 1945?? Visit: 07/07/2025 15:22?? Current Date: 07/11/2025 12:26 ?? Account: [id number]?? Inpatient Adult Discharge Instructions We would like to thank you for allowing us to assist you with your healthcare needs. The following includes patient education materials and information regarding your injury/illness. Our entire staffstrives to provide an excellent experience for our patients and their families. PLEASE ENSURE YOU FOLLOW-UP PER THE INSTRUCTIONS BELOW! ?? YOUR OPINION IS IMPORTANT TO US! Please complete the survey you may receive by mail or email. Your feedback will be used to make improvements to the healthcare experiences of our patients and their families. Surveys are administered by [employer] ?? If further treatment with your primary care physician or another doctor is recommended, it is important for you to keep the appointment. Call your primary care physician or return to the Emergency Department immediately if your condition worsens, fails to improve, or new symptoms develop. If you need to find a doctor, you can call [facility] [employer] for a referral at [phone] or toll free at [phone]) or log in to [email or web address].. ?? [facility], in keeping with [facility] guidance, no longer requires face masks for [...] medical provider or home test kit. ?? You can view and manage your care through the patient portal or by using a health care michele of your choosing. [employer] is a website that allows you to securely view your medical information including your hospital discharge summary, office visit summaries, medications and follow-up visits. You can also request appointments, renew medications, and request access to your medical information using a health care michele of your choosing, or just ask a question. You are entitled to know the individuals who participated in your treatment.This information is available within your medical record and will be provided upon your request. You can enroll at [email or web address] or register during your next office visit. You have been discharged from [facility], Patient Care Unit: SW6??. If you have any questions or concerns following your procedure, please call your surgeon?s office for assistance. [facility] Your Care Team Attending Physician Gustavo Augustine DO?? Consulting Providers Gustavo Augustine DO?? Discharging Providers Christophe Josue MD Your Diagnosis General medical Hypothyroidism Tests Performed Below is a partial list of the tests performed during your hospitalization. You may have had other tests and procedures not included in this list. Please discuss all test results with your provider. ALT AST Basic Metabolic Panel Blood Culture Blood Culture #2 Blood Culture 2 Results Blood Culture Result CBC w/ Differential Comprehensive Metabolic Panel GLUCOSE POC HOLD LAVENDER TUBE INR Ionized Calcium Lactate Level Magnesium Level Phosphorus Level PTT CT Abd/Pelvis W/ IV Contrast Only ALT?? AST?? Basic Metabolic Panel?? Blood Culture?? Blood Culture #2?? Blood Culture 2 Results?? Blood Culture Result?? CBC w/ Differential?? CT Abd/Pelvis W/ IV Contrast Only?? Comprehensive Metabolic Panel?? Glucose POC?? Hold Lavender Top Tube (HOLD LAVENDER TUBE)?? INR?? Ionized Calcium?? Lactic Acid Level (Lactate Level)?? Magnesium Level?? PTT?? Phosphorus Level?? Primary Care Provider David Cabrales MD? Advance Directive Health Care Proxy on File Yes - Health Care Proxy Discharge Vitals Temperature: 97.9 DegF Height: 153 cm Pulse Rate: 68 bpm Weight: 81 kg Respiratory Rate: 16 br/min Body Mass Index:??34.6 kg/m2??Critical Systolic Blood Pressure: 104 mm Hg Body surface area: 1.86 Diastolic Blood Pressure: 70 mm Hg ?? Oxygen Saturation: 97 % ?? Studies Pending All studies ordered during this hospital stay have been completed unless listed below. Please discuss all pending results with your provider listed above in these instructions. ?? Basic Metabolic Panel?? CBC w/ Differential?? Ionized Calcium?? Lactic Acid Level (Lactate Level)?? Magnesium Level?? Phosphorus Level?? What to do next Instructions From Your Doctor Trauma Surgery Discharge Instructions: ?? Diet: ? Continue your regular diet. Drink 6 to 8 glasses of fluids per day. ?No alcoholic beverages while taking narcotic pain medications. ?? Activity:?Avoid any activity that causes discomfort.?Normal daily activities are safe. Walkingis allowed and encouraged.? Continue using your incentive spirometer a few times per hour. Continue working on taking deep breaths.?Avoid straining, vigorous sports or lifting anything more than 10 pounds for 4 weeks, or as directed by your surgeon. ?You may drive whenever comfortable, but do not go alone the first time and do not driveafter taking narcotic pain medications. ?? Dressings and Wound care: ?You may remove your bandage and shower as necessary. Please let the water run down ontothe incision, do not scrub. Please re-dress with dry sterile dresing ? Please apply Betadine to heel and zinc ointment to bilateral buttocks, per wound care recommendations? Medications: ?Pain:?Please take acetaminophen (Tylenol) for pain.? Antibiotics:?Please take Augmentin and Doxycycline for 14 days, as prescribed ?Home Medications: Resume any medications your primary physician has prescribed unless specifically instructed. ?Stool softener:?Colace 100 mg??or its generic form??DOCUSATE??tablet by mouth twice a day as directed. Some people will need to take stool softener short-term after surgery. If you have chronic diarrhea or inflammatory bowel disease, you should not take stool softener unless you are c onstipated ?Constipation:?Take??Milk of Magnesia??as directed on the bottle every 6 hours for 24hours, OR Miralax at night per directions.?These are both available over the counter.?If thisfails to relieve the problem, call the office. ?? Expect the following: ?Fatigue, especially in the first 24 hours. ?Pain or discomfort, which will lessen as time passes.?Constipation is a possibility, especially if narcotic pain relievers are needed. ?? Call the office or answering service immediately if any of the following occur:?Severe shortness of breath ?Severe pain not relieved by pain medication. ?Uncontrollable bleeding ?Any bright redness, red streaking, or swelling around your incision, or any bad odor, or pus-like drainage coming from your incision. ?Temperature more than??101 F (38 C). ?Repeated nausea and vomiting or inability to tolerate or hold down fluids ?Inability to urinate. ?? Post-operative appointments: ? You have a follow up appointment in the trauma surgery office 07/25/25 at 2:40PM ?? Problems or Questions: ?Office hours are 8:30 am to 5:00 pm Thursday thru Thursday. It is best to call during office hours with routine questions.?You may reach the clinical staff during office hours at ?If you have an after-hours emergency, you can call the answering service at . ?If you cannot reach our office and your problem truly requires emergency attention, go to??[facility] Emergency Room??or the nearest emergency room.? Orders? 07/11/25 12:22:00 EDT?? Prescriptions??, ??07/11/25 12:22:00 EDT?? Scheduled Follow-Up Appointments Thursday 2:40 PM EDT ?? Type: Post-Op With: Gustavo Augustine DO Where: Trauma Surg [address] [place] [address]- Status: Pending Discharge Medications EDDIEANNA MARSHALL :1945 Visit Date:07/07/2025 Medications: Please continue your medications until treatment is completed or stopped by your provider. Medications not listed below should be discontinued. Discuss any questions related to medications with your provider. What How Much When Why Instructions Next Dose New Amoxicillin-Clavulanate (amoxicillin-clavulanate 875 mg-125 mg oral tablet) 875 Milligram Oral Twice a day Duration: 14 Days Ordering Physician: Christophe Josue MD at [facility] 9pm New Doxycycline (doxycycline hyclate 100 mg oral tablet) 100 Milligram Oral Every 12 hours Duration: 14 Days Ordering Physician: Christophe Josue MD at [facility] 9pm Changed Acetaminophen (acetaminophen 325 mg oral tablet) 975 Milligram Oral Every 6 hours Duration: 7 Days Ordering Physician: Christophe Josue MD Pickup at [facility] as needed Changed Zinc Oxide Topical (zinc oxide 40% topical ointment) 1 applicator Topically Daily Duration: 14 Days Special Instructions: to be applied to bilateral buttocks Ordering Physician: Christophe Josue MD ?? Pickup at [facility] daily Unchanged apixaban (Eliquis 5 mg oral tablet) 1 tab(s) Oral Twice a day Ordering Physician: Anuel Gotti MD as prescribed Unchanged Atorvastatin (atorvastatin 40 mg oral tablet) 1 tab(s) Oral Daily at Bedtime Ordering Physician: Latoya Issa NP as prescribed Unchanged Digoxin (digoxin 0.125 mg oral tablet) 1 tab(s) Oral Daily at Bedtime Ordering Physician: Katherine Griffin as prescribed Unchanged Levothyroxine (levothyroxine 0.112 mg oral tablet) 1 tab(s) Oral Daily Hypothyroidism Ordering Physician: Latoya Issa NP as prescribed Unchanged Lisinopril (lisinopril 2.5 mg oral tablet) 1 tab(s) Oral Daily as prescribed Unchanged Metformin (metFORMIN 850 mg oral tablet) 1 tab(s) Oral Twice a day as prescribed Unchanged Metoprolol (metoprolol 50 mg oral tablet, extended release) 1 tab(s) Oral Daily Ordering Physician: Sebastian Herrera as prescribed Unchanged Miscellaneous Rx (CBC in 3 days) See instructions Special Instructions: Forward the results to Latoya Issa NP Ordering Physician: Edwina Garcia MD ?? Unchanged Omeprazole (omeprazole 20 mg oral enteric coated capsule) 1 capsule Oral Daily Ordering Physician: Latoya Issa NP as prescribed Unchanged Vitamin A & D Topical (A+D topical ointment) Topically Daily Special Instructions: applied to lower extremities for dry skin ?? as prescribed Pharmacy Information [facility]: [address], [place] [phone] ?? What How Much When Comments Stop Taking Bumetanide (bumetanide 1 mg oral tablet) 1 tab(s) Oral Daily Stop Taking Collagenase Topical (collagenase topical 250 u/ gm ointment) 1 michele Topically Daily Special Instructions: apply to right heel and right and left lower abdominal wounds Ordering Physician: Christophe Josue MD ?? Stop Taking Emollients, Topical (Vashe Topical Solution) 475 Milliliter Topically Daily Ordering Physician: Sagar Long MD Stop Taking Sodium Hypochlorite Topical (Dakins Quarter Strength 0.125% topical solution) Special Instructions: APPLY EXTERNALLY ONCE DAILY TO RIGHT HEEL WOUND X 10 MINUTES WITH DRESSING CHANGE ?? Prescription Given During Visit Acetaminophen (acetaminophen 325 mg oral tablet) - 975 mg, By Mouth, Every 6 hours, # 50 tablet, 0 Refills, [facility], [address] [place] [address] [phone] Amoxicillin-Clavulanate (amoxicillin-clavulanate 875 mg-125 mg oral tablet) - 875 mg, By Mouth, 2 times a day, # 28 tablet, 0 Refills, [facility], [address] [place] [address] [phone]?? Doxycycline (doxycycline hyclate 100 mg oral tablet) - 100 mg, By Mouth, Every 12 hours, # 28 tablet, 0 Refills, [facility], [address] [place] [address] [phone] Zinc Oxide Topical (zinc oxide 40% topical ointment) - 1 applicator, Topically, Daily, # 30 Gm, 0 Refills, to be applied to bilateral buttocks, [facility], [address] [place] [address] [phone]?? Laboratory Results Below is a partial list of the most recent Laboratory test results done prior to this discharge. You may have had other tests and procedures not included in this list. Please discuss all test resultswith your provider. Est Creatinine Clearance - 43.21 mL/min (07/11/2025) ALT (07/08/2025) ???ALT (SGPT) - 9 units/L AST (07/08/2025) ???AST (SGOT) - 26 units/L Basic Metabolic Panel (07/11/2025) ???Sodium - 137 mmol/L???Potassium - 4.2 mmol/L???Chloride - 101 mmol/L???Bicarbonate Level - 25 mmol/L???Anion Gap - 11 mmol/L???Glucose Level - 106 mg/dL???BUN - 25 mg/dL???Creatinine-Blood - 0.78 mg/dL???Estimated GFR Creatinine - 78 ML/MIN/1.73 M2???Calcium - 9.2 mg/dL Blood Culture (07/07/2025) ???Blood Culture Results - Preliminary report???Blood Culture Specimen Source - BLOOD Blood Culture #2 (07/07/2025) ???Blood Cult 2 Results - Preliminary report???Blood Culture 2 Specimen Source - BLOOD Blood Culture 2 Results (07/07/2025) ???Blood Culture 2 Isolate 1 - Comment Blood Culture Result (07/07/2025) ???Blood Culture Isolate 1 - Comment CBC w/ Differential (07/11/2025) ???WBC - 8.2 k/mm3???RBC - 3.19 m/mm3???Hgb - 8.9 Gm/dL???Hct - 28.9 %???MCV - 90.6 femtoliters???MCH - 27.9 pg???MCHC - 30.8 Gm/dL???Platelet Count - 367 k/mm3???RDW-SD - 54.4 femtoliters???MPV - 10.9 femtoliters???Nucleated RBC (Automated) - 0.0 #/100 WBC'S???Abs. NRBC - 0.0 k/mm3???Abs. Neut - 5.7 k/mm3???Abs. Lymph - 1.4 k/mm3???Abs. Travis - 0.6 k/mm3???Abs. Eo - 0.4 k/mm3???Abs. Baso - 0.1 k/mm3???Neut % - 69.2 %???Lymph % - 16.9 %???Travis % - 7.6 %???Eos % - 4.5 %???Baso % - 0.7 %???Imm Gran - 1.1 %???Abs. Imm Gran - 0.1 k/mm3 Comprehensive Metabolic Panel (07/07/2025) ???Sodium - 135 mmol/L???Potassium - 4.8 mmol/L???Chloride - 101 mmol/L???Bicarbonate Level - 20 mmol/L???Anion Gap - 14 mmol/L???Glucose Level - 98 mg/dL???BUN - 27 mg/dL???Creatinine-Blood - 0.69 mg/dL???Estimated GFR Creatinine - 89 ML/MIN/1.73 M2???Calcium - 9.4 mg/dL???Protein, Total - 8.0 Gm/d L???Albumin - 3.4 Gm/dL???AG Ratio - 0.7???Alkaline Phosphatase - 81 units/L???AST (SGOT) - 26 units/L???ALT (SGPT) - 10 units/L???Bilirubin, Total - 0.4 mg/dL GLUCOSE POC (07/11/2025) ???Glucose, POC - 160 mg/dL HOLD LAVENDER TUBE (07/08/2025) ???Hold Lavender Top - SPECIMEN DISCARDED AFTER 24 HOURS. INR (07/08/2025) ???INR - 1.2???Protime (PT) - 12.5 seconds Ionized Calcium (07/11/2025) ???Calcium, Ionized pH Corrected - 1.20 mmol/L Lactate Level (07/07/2025) ???Lactate - 1.9 mmol/L Magnesium Level (07/11/2025) ???Magnesium - 1.4 mg/dL Phosphorus Level (07/11/2025) ???Phosphorus - 3.0 mg/dL PTT (07/08/2025) ???APTT - 26.5 seconds Allergies (NKA means No Known Allergies) oxyCODONE (Moderate)??AMS, nausea, sweating Latex Problems Active Problems??(21) Aortic stenosis?? [facility] [employer] Coretta Castaneda [phone]?? 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?? Chronic anemia?? Chronic atrial fibrillation?? Chronic heart failure with preserved ejection fraction (HFpEF)?? Gastroesophageal reflux disease?? History of heart failure?? HTN (hypertension)?? Hyperlipidemia?? Hypertensive disorder?? Hypothyroidism?? Hypoxia?? Obese class I?? Open wound of heel?? Peripheral venous insufficiency?? Pulmonary vascular congestion?? Sacral ulcer?? Severe obesity (BMI >= 40) Type 2 diabetes mellitus?? Wound, open, abdominal wall, anterior?? Education Materials Below is the list of Educational Leaflet Providered with your Discharge Instructions. Valuables and Belongings I fully understand and agree that [facility] accepts no responsibility for all my personal property including clothing, toilet articles, radios, jewelry, dentures, hearing aids, rings, money, or any other property that is in my possession or is brought to me after admission. I understand certain valuables may be placed in a hospital safe for a short period of time. I understand that the hospital is not liable for loss or damage due to accident, fire, or other natural occurrence while said property is in the safe. I accept full responsibility for any personal property that I keep with me, and will not hold the hospital responsible in case of loss or disappearance. I acknowledge that i have been encouraged to send valuables and belongings home. ?? Review of Valuable and Belonging List: With patient Date for Pt to Sign Valuables/Belongings: 07/07/25 19:23:00 ?? Other Discharge Information ? Pulmonary Rehab Status?? Pulmonary Rehab Discharge Status?? Respiratory Rate: 16 br/min ? Common Emergency Awareness Tips IS IT A [...] are strongly encouraged to quit. Please call [facility] Link at [phone] or [phone] ([phone]) or log in to [email or web address] for referrals to smoking cessation programs. ?? 988 Suicide & Crisis Lifeline is available 01/06 if you or someone you know needs to find a reason to keep living. By calling 638 you'll be connected to a skilled, trained counselor at a crisis center in your area. INPATIENT DISCHARGE INSTRUCTIONS SIGNATURE PAGE ANNA HERNANDEZ Location:[facility] Registration Date and Time:07/07/2025 15:22 EDT Primary Care Physician: David Cabrales MD, Attending Physician: Gustavo Augustine DO, I DAVIDANNA, have received the above patient education materials/instructions and have verbalized understanding. If ambulance or transport services are being used I further acknowledge being given a choice of service. ?? If you need to contact me, please call me at this number: . 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 Name: 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 Signature: Relationship to Patient: Witness Name/Signature: Date: Patient Care team information Care Team Personnel Name: Zaire Taylor RN Position: [facility] RN Supv Member Role: Primary Care Nurse Name: Sonia Gustafson RN Position: [facility] RN Member Role: Primary Care Nurse Name: Verónica Mike RN Position: S RN Member Role: Primary Care Nurse Name: Carmela Staples LPN Position: [facility] RN Member Role: Primary Care Nurse Name: Jaja Chow RN Position: [facility] RN Supv Member Role: Primary Care Nurse Name: David Cabrales MD Position: [facility] Outreach Member Role: PCP Address: [address] [place], [place] [address] Telecom: Name: Navid Tate Position: [facility] RN Supv Member Role: Primary Care Nurse Name: Sid Oro RN Position: [facility] RN Member Role: Primary Care Nurse Name: Eliana Polanco RN Position: [facility] RN Member Role: Primary Care Nurse Name: Marylin Conn RN Position: [facility] ED RN W/OE and Tasks Member Role: Primary Care Nurse Name: Annette Grullon RN Position: [facility] RN Member Role: Primary Care Nurse Name: Siri Cardona RN Position: [facility] RN Member Role: Primary Care Nurse Name: Coretta Castaneda MA Position: [facility] MA Stage Electrician Member Role: Dispatch Associate Name: Na Russell RN Position: [facility] RN Member Role: Primary Care Nurse Name: Katie Contreras RN Position: [facility] RN Member Role: Primary Care Nurse Care Team Related Persons Name: YONY FARRAR Name: LOIR FARRAR Name: GAVINO ROSALES Insurance Providers Guarantor name: [facility] Information #: 1 Payer: [employer] MEDICARE ADV HMO Payer Identifier: NA Member Number: [id number] Group Number: [id number] Subscriber Identifier: [id number] Relationship to Subscriber: self Coverage Type: Medicare HMO Coverage Verification Date: Telecom: NA Address:
--- OUTSIDE RECORDS SUMMARY | 2025-07-11 23:59 | XMS_ITS | Continuity of Care Document ---
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 Name Role Phone Samra PATTERSON, David Burden Primary Care Physician [phone] Encounter [facility] R [id number] Date(s): 07/04/25 - 07/11/[address] [place] [address]- Attending Physician: Bijan Rodriguez MD Encounter Type: Office Visit Allergies, Adverse Reactions, Alerts Substance Criticality Severity Reaction Reaction Severity Status Latex Active oxyCODONE High criticality Moderate AMS nausea sweating Active Immunizations Given and Recorded Vaccine Date Status Refusal Reason RSV vaccine preF3, recombinant 09/18/23 Recorded influenza virus vaccine, inactivated 08/15/23 Teodoro rded influenza virus vaccine, inactivated 08/06/22 Teodoro rded influenza virus vaccine, inactivated 08/12/21 Teodoro rded influenza virus vaccine, inactivated 08/15/20 Teodoro rded influenza virus vaccine, inactivated 09/21/19 Give n SARS-CoV-2(COVID-19)mRNA-LNP vac([id number]) 08/14/23 Recorded tetanus/diphtheria/pertussis, acel(Tdap) 06/11/23 Recorded pneumococcal 20-valent conjugate vaccine 04/15/23 Given [id number] 12y+ bivalent booster vax 12/29/22 Recorded SARS-CoV-2 mRNA ([id number]) vax 06/08/22 Recorded SARS-CoV-2 (COVID-19) mRNA BNT-162b2 vac 08/30/21 Recorded SARS-CoV-2 (COVID-19) mRNA BNT-162b2 vac 02/12/21 Given SARS-CoV-2 (COVID-19) mRNA BNT-162b2 vac 02/12/21 Recorded SARS-CoV-2 (COVID-19) mRNA BNT-162b2 vac 01/22/21 Given SARS-CoV-2 (COVID-19) mRNA BNT-162b2 vac 01/22/21 Recorded Influenza Virus Vaccine (oldterm) 1 08/09/20 Recor ded 1Result Comment: [facility] Medications A+D topical ointment Topically, Daily, [...] 07/11/25 12:00:00 PM EDT, Tablet, [facility], Partial fill [...] Refills 0, Maintenance, Forward the results to Latoya Issa NP, 06/25/25 11:50:00 AM EDT, Supply Start Date: 06/25/25 Status: Ordered Medication Dispense Status: Completed Quantity: 1.0 Unit: each Total Allowed Fills: 1 Fills Dispensed: 0 digoxin 0.125 mg oral tablet 1, tablet, By Mouth, Daily at bedtime, # 90 tablet, Refills 3, Maintenance, 08/08/24 10:30:00 AM EDT, Route to Pharmacy Electronically, [email or web address], 158, cm, 08/01/24 12:56:00 EDT, [...] 07/11/25 12:00:00 PM EDT, Tablet, [facility], Partial fill upon patient requestif [...] Total Allowed Fills: 4 Fills Dispensed: 0 omeprazole 20 mg oral [...] Active History of heart failure Confirmed Active [facility] Cd Technician Coretta Castaneda [phone] Confirmed Active Change in hearing of left [...] Active Type 2 diabetes mellitus Confirmed Active Vital Signs Most recent to oldest [Reference Range]: 1 Height 152 cm (07/04/25 3:37 PM) Weight 78.8 kg (07/04/25 3:37 PM) Pulse Rate [55-90 bpm] 87 bpm (07/04/25 3:37 PM) Body Mass Index [18.5-24.99 kg/m2] 34.11 kg/m2 *>HHI* (07/04/25 3:37 PM) Blood Pressure [90-138/55-84 mm Hg] 127/ 97mm Hg (07/04/25 3:37 PM) Temperature [96.8-100.4 DegF] 97.7 DegF (07/04/25 3:37 PM) Blood pressure sites Arm, left (07/04/25 3:37 PM) Temperature Route Temporal (07/04/25 3:37 PM) Weight Obtained Via Standing scale (07/04/25 3:37 PM) Social History Social History Type Response Sexual Sexually involved in last 6 months: No. Smoking Status Never (less than 100 in lifetime) entered on: 09/21/19 Sex Sex Representation Female (finding) Note * Kaylene Henao: PERFORM Event Display: Patient Education/Instruction Authored Date: [id number] Ambulatory Adult Visit Summary [facility] Tra[facility] Surg [address] [place], [place] [id number] Name: RAHEL HERNANDEZ : 1945?? Visit: 07/04/2025 14:32?? Ambulatory Visit Instructions ?? Your Care Team Primary Care Provider David Cabrales MD? This Visit Provider Bijan Rodriguez MD Vitals Signs Temperature: 97.7 DegF Height: 152 cm Pulse Rate: 87 bpm Weight: 78.8 kg Systolic Blood Pressure: 127 mm Hg Body Mass Index:??34.11 kg/m2??Critical Diastolic Blood Pressure:??97 mm Hg??High Body surface area: 1.82 What to do next Scheduled Follow-Up Appointments Thursday 9:30 AM EDT ?? Type: Return Where: Trauma Surg [address] [place] [address]- Status: Pending Future Orders Basic Metabolic Panel - Routine, Once, 09/16/24 15:24:00 EST, Within 3 Days, [facility], Blood?? Microalbumin Urine - Routine, Once, 03/14/25 12:50:00 EDT, Order for Today, [facility], Urine?? TSH Rfx on Abnormal to Free T4 - Routine, Once, 06/03/25 3:00:00 EDT every 6 week(s) for 11 months,Order for Today, [facility], Blood?? Medications The list below reflects the information in our records and provided by you today along with any changes made during this visit. Please continue your medications until treatment is completed or stopped by your provider. If this is different from the information you have or there are other questions,please contact the prescribing provider. What How Much When Why Instructions Unchanged Acetaminophen (acetaminophen 325 mg oral tablet) 2 tab(s) Oral 3 times a day as needed for Pain , Mild Special Instructions: Temperature Greater than 100.5 Ordering Physician: Sagar Long MD ?? Unchanged apixaban (Eliquis 5 mg oral tablet) 1 tab(s) Oral Twice a day Ordering Physician: Anuel Gotti MD Unchanged Atorvastatin (atorvastatin 40 mg oral tablet) 1 tab(s) Oral Daily at Bedtime Ordering Physician: Latoya Issa NP Unchanged Bumetanide (bumetanide 1 mg oral tablet) 1 tab(s) Oral Daily Unchanged Collagenase Topical (collagenase topical 250 u/ gm ointment) 1 michele Topically Daily Special Instructions: apply to right heel and right and left lower abdominal wounds Ordering Physician: Sagar Long MD ?? Unchanged Digoxin (digoxin 0.125 mg oral tablet) 1 tab(s) Oral Daily at Bedtime Ordering Physician: Katherine Griffin Unchanged Emollients, Topical (Vashe Topical Solution) 475 Milliliter Topically Daily Ordering Physician: Sagar Long MD Unchanged Levothyroxine (levothyroxine 0.112 mg oral tablet) 1 tab(s) Oral Daily Hypothyroidism Ordering Physician: Latoya Issa NP Unchanged Lisinopril (lisinopril 5 mg oral tablet) 1 tab(s) Oral Daily Unchanged Metformin (metFORMIN 850 mg oral tablet) 1 tab(s) Oral Twice a day Unchanged Metoprolol (metoprolol 50 mg oral tablet, extended release) 1 tab(s) Oral Daily Ordering Physician: Sebastian Herrera Unchanged Miscellaneous Rx (CBC in 3 days) See instructions Special Instructions: Forward the results to Latoya Issa NP Ordering Physician: Edwina Garcia MD ?? Unchanged Omeprazole (omeprazole 20 mg oral enteric coated capsule) 1 capsule Oral Daily Ordering Physician: Latoya Issa NP Unchanged Sodium Hypochlorite Topical (Dakins Quarter Strength 0.125% topical solution) Special Instructions: APPLY EXTERNALLY ONCE DAILY TO RIGHT HEEL WOUND X 10 MINUTES WITH DRESSING CHANGE ?? Unchanged Vitamin A & D Topical (A+D topical ointment) Topically Daily Special Instructions: applied to lower extremities for dry skin ?? Unchanged Zinc Oxide Topical (zinc oxide 40% topical ointment) 1 michele Topically Daily Special Instructions: applied by wound care nurse ?? Medications and Immunizations Administered Medications Given During Visit No medications given during this visit.?? Allergies (NKA means No Known Allergies) oxyCODONE (Moderate)??AMS, nausea, sweating Latex Common Emergency Awareness Tips IS IT [...] are strongly encouraged to quit. Please call [facility] at [phone] or [phone] ([phone]) or log in to [email or web address] for referrals to smoking cessation programs. ?? The National Suicide Prevention Hotline is available 01/06 if you or someone you know needs to find a reason to keep living. By calling 3-562-292-gkri ([phone]) you'll be connected to a skilled, trained counselor at a crisis center in your area. [facility] Portal You can view and manage your care through the patient portal or by using a health care michele of your choosing. [employer] is a website that allows you to securely view your medical information including your hospital discharge summary, office visit summaries, medications and follow-up visits. You can also request appointments, renew medications, and request access to your medical information using a health care michele of your choosing, or just ask a question. You can enroll at [email or web address] or register during your next office visit. [facility], in keeping with [facility] guidance, no longer requires face masks [...] primary care provider, you may find a [facility] provider by calling [facility] Link at [phone]. Patient Care team information Care Team Personnel Name: Zaire Taylor RN Position: S RN Supv Member Role: Primary Care Nurse Name: Sonia Gustafson RN Position: S RN Member Role: Primary Care Nurse Name: Verónica Mike RN Position: S RN Member Role: Primary Care Nurse Name: Carmela Staples LPN Position: S RN Member Role: Primary Care Nurse Name: Jaja Chow RN Position: [facility] RN Supv Member Role: Primary Care Nurse Name: David Cabrales MD Position: S Outreach Member Role: PCP Address: [address] [place], [place] [address] Telecom: Name: Navid Tate Position: S RN Supv Member Role: Primary Care Nurse Name: Sid Oro RN Position: S RN Member Role: Primary Care Nurse Name: Eliana Polanco RN Position: [facility] RN Member Role: Primary Care Nurse Name: Marylin Conn RN Position: [facility] ED RN W/OE and Tasks Member Role: Primary Care Nurse Name: Annette Grullon RN Position: [facility] RN Member Role: Primary Care Nurse Name: Siri Cardona RN Position: [facility] RN Member Role: Primary Care Nurse Name: Coretta Castaneda MA Position: [facility] MA Cd Technician Member Role: Chemotherapist Name: Na Russell RN Position: [facility] RN Member Role: Primary Care Nurse Name: Katie Contreras RN Position: [facility] RN Member Role: Primary Care Nurse Care Team Related Persons Name: YONY FARRAR Name: LIOR FARRAR Name: GAVINO ROSALES Insurance Providers Guarantor name: [facility] Information #: 1 Payer: [employer] MEDICARE ADV HMO Payer Identifier: NA Member Number: [id number] Group Number: [id number] Subscriber Identifier: [id number] Relationship to Subscriber: self Coverage Type: Medicare HMO Coverage Verification Date: Telecom: Address:
--- OUTSIDE RECORDS SUMMARY | 2025-07-12 10:30 | XMS_ITS ---
Author Organization [facility] Address [address] [place] [address] Care Team Providers Care Neurocritical Care Physician Name Role Phone Anitha ZARATEP-Latoya Pereyra Primary Care Provid er Unavailable Imani Gaston Unavailable [phone] Encounters Encounter Location Date Provider Diagnosis [facility] [address] [place] [address] 07/12/2025 Imani Gaston Plan Of Treatment Next Appt Details Provider Name:Imani Gaston 07/19/2025 01:00:00 PM, [address], [place], [address], Progress Notes * Anna MARIDOB:1945 (80 yo F)Acc No.[id number]:07/12/2025 Follow-Up Visit Patient: Anna GREGORY Provider: Charles Gaston NP :1945 A ge:80 Y S ex:Female Date:07/12/2025 Address:[address] [id number] Pcp:Halle Alanis Subjective: * Chief Complaints: * * Medical History: Objective: * Vitals: Assessment: Plan: * Treatment: * Billing Information: * Visit Code: * Procedure Codes: * Electronic signature of Keyanna Gaston NP on 07/13/2025 at 12:18 PM EDT Sign off status: Pending * Provider: Charles Gaston NP Date: 07/12/2025 Generated for Printi ng/Faxing/eTransmitting on: 07/13/2025 12:18 PM EDT
--- NOTE | 2025-07-13 10:44 | MHC.PC.OV ---
Vital Signs 07/13/25 10:57 Height 5 ft Weight 178 lb BMI 34.8 BP 127/62 Blood Pressure Location Lt brachial Position Sitting Respiration 16 Pulse 92 Pulse Source Pulse Oximeter Temp 99.3 F Temp Source Oral Pulse Oximetry (%) 98 Oxygen Delivery Method Room Air Intake Visit Reasons: [place] [facility] [place] on pt. stomach. Intake Note: patient here for [facility] from [facility] for surgery on patients stomach School Principal Required: No Is last menstrual period known: No Post menopausal: No Patient : No Allergies latex Allergy (Intermediate, Verified 07/13/25 10:54) hives oxycodone Allergy (Intermediate, Verified 07/13/25 10:54) Fever Medication List - Last Reconciled 07/13/25 by David Cabrales MD acetaminophen 975 mg PO Q6H amoxicillin-pot clavulanate 875-125 mg 1 tab PO BID apixaban (Eliquis) 5 mg PO BID atorvastatin 40 mg PO DAILY digoxin 125 mcg PO DAILY doxycycline hyclate 100 mg PO Q12H levothyroxine 100 mcg PO DAILY lisinopril 2.5 mg PO DAILY metformin 850 mg PO BID 90 days metoprolol succinate ER 50 mg PO DAILY omeprazole 20 mg PO DAILY sodium hypochlorite 0.125% (Dakin's Solution) topical DAILY Tobacco use date assessed: 07/13/25 Fall risk assessment: No Falls in past year Last assessed Fall Risk: 07/13/25 Dental Screening Dental Screen Date: 07/13/25 Did you have a dental visit in the last 12 months?: No Did you have a dental problem in the last 6 months where you did not have access to dental care?: No Was dental information given to patient?: Patient has dentist HPI [place] [facility] [place] Surgery on pt. stomach. HPI Details Pt presents to f/u [facility] [place]. Patient was admitted 06/1212/17/2016 for chronic abdominal wounds. She will underwent debridement on 06/16/2025 and underwent complex closure of abdominal wound on 06/20/2025. She was discharged out a 14 day course of Augmentin doxycycline. On 07/04/25 she was seen at the surgeon's office and had areas of erythema and drainage suspicious for infection. She will return on 07/07/2025 for check and continued to have erythema around incision and was sent to the ED. CT scan revealed an elongated collection/abscess spanning Will length of the abdominal incision and she was started on IV antibiotics (vancomycin and Zosyn), monitored and transitioned to p.o. antibiotics (Augmentin/doxycycline). Pt feels well today. Denies any fevers. [facility] Medical History (Updated 07/13/25 @ 11:05 by Natalio Uriostegui) Osteoporosis Arthritis Diabetes High blood pressure Family History (Updated 06/07/25 @ 15:38 by Del Eastman [facility]) Mother High blood pressure High cholesterol Cardiovascular disease Father High blood pressure Asthma Social History Housing: House Patient Tobacco Use Status: Never used Tobacco e-Cigarette/Vaping Use: Never Used service: No Current occupational status: retired Cognitive needs: No Hearing needs: No Vision needs: Yes Questionnaire Thrive Questionnaire Date Thrive assessed: 06/07/25 I am a: Patient What is your living situation today?: I have a steady place to live Within the past 12 months, did the food you bought not last and you didn't have the money to get more?: Never true Within the past 12 months, did you worry whether your food would run out before you got money to buy more?: Never true Do you have trouble paying for medicines?: No Do you have trouble getting transportation to medical appointments?: No Do you have trouble paying your heating and electricity bill?: No Do you have trouble taking care of your child, family member or friend?: I choose not to answer this question Do you have trouble with day-to-day activities such as bathing, preparing meals, shopping, managing finances, etc.?: I choose not to answer this question Are you currently unemployed and looking for a job?: No Are you interested in more education?: No Please select the resources that you would like help with: None Currently or been in a relationship where the following occur: No concerns reported THRIVE Score: 0 SANGEETA-7 AMB Questionnaire SANGEETA-7 Date SANGEETA - 7 assessed: 06/07/25 Source: Developed by Drs. Dorian Sanchez, Gloria Peraza, Rahul Dumont and colleagues, with an educational racheal from [employer]. Review of Systems Const Denies chills, Denies fatigue, Denies fever(s), Denies headache(s) and Denies weakness ENT Denies dizziness and Denies headache(s) Card Denies dyspnea Resp Denies cough, Denies dyspnea, Denies wheezing and Denies other (shortness of breath) Musc Denies numbness and Denies tingling Neuro Denies dizziness, Denies headache(s), Denies numbness, Denies tingling and Denies weakness Psych Denies anxiety and Denies depression Endo Denies fatigue Aller/Immun Denies wheezing Physical exam (Primary Care) Tobacco/Smoking Status: Tobacco use Status Tobacco use date assessed 06/07/25 07/13/25 10:47 Patient Tobacco Use Status Never used Tobacco 07/13/25 10:47 e-Cigarette/Vaping Use Never Used 07/13/25 10:47 Thrive Assessment: Date of Thrive Assessment Date Thrive assessed 06/07/25 07/13/25 10:47 Currently or been in a relationship where the following occur: No concerns reported Const General: well developed; No acute distress Nutritional Appearance: well nourished Orientation/consciousness: patient oriented x3 HENMT Head: Yes normocephalic and Yes atraumatic Eyes General: appearance normal, both eyes and all related structures Pupils: Equal, round and reactive pupils present EOM: EOMs intact bilaterally Resp Effort & Inspection: normal respiratory effort Auscultation: clear to auscultation bilaterally Cardio Rate: regular rate Rhythm: regular rhythm Heart sounds: S1 normal heart sound present, S2 normal heart sound present, no gallops, no murmurs and no rubs Neuro General: patient oriented x3 and gait normal Cranial nerves: Yes Equal, round and reactive pupils present Psych Affect: normal affect Coding Level of Care Code TCM High MDM <= 7 Days Diagnoses Infected surgical wound T81.49XA Pressure sore L89.90 Diabetes E11.9 Assessment & Plan Assessment & Plan (1) Infected surgical wound: Code(s): T81.49XA - Infection following a procedure, other surgical site, initial encounter Category: Medical (2) Pressure sore: Code(s): L89.90 - Pressure ulcer of unspecified site, unspecified stage Category: Medical (3) Diabetes: Code(s): E11.9 - Type 2 diabetes mellitus without complications Category: Medical Plan Abd wound Patient was admitted 06/1206/25/25 for chronic abdominal wounds. She will underwent debridement on 06/16/2025 and underwent complex closure of abdominal wound on 06/20/2025. She was discharged out a 14 day course of Augmentin doxycycline. On 07/04/25 she was seen at the surgeon's office and had areas of erythema and drainage suspicious for infection. She will return on 07/07/2025 for check and continued to have erythema around incision and was sent to the ED. CT scan revealed an elongated collection/abscess spanning Will length of the abdominal incision and she was started on IV antibiotics (vancomycin and Zosyn), monitored and transitioned to p.o. antibiotics (Augmentin/doxycycline). Patient was also noted to have develops pressure injuries to right heel and bilateral buttocks. These were treated with offloading and Betadine as well as zinc ointment. She was discharged on 07/11/2025 and was given and Tylenol for pain and Augmentin/doxycycline for 2 additional weeks. No excessive drainage or erythema around wound and bandages do not have any staining. Continue antibiotic until completed Has f/u 07/25/[address] Bijan Rodriguez Trauma Surg, [address] [place]. Right heel wound: She is currently on antibiotics as above Advised further offloading with a pillow under her calf and she is lying down Buttock pressure sore stage I Continue using zinc oxide. She says that she is on this so I have sent a refill Change positions frequently Use cushion Diabetes: Continue taking metformin as prescribed Will send her a script for testing supplies She has an appointment next month and follow-up on blood sugar control at that time Medications: New blood-glucose meter (FreeStyle Lite Meter kit) DX: E11.9, test blood sugar 2 times a day, duration 999 days 1 ea 0RF E11.9 - Type 2 diabetes mellitus without complications lancets (FreeStyle Lancets) As directed 200 ea 4RF DX: E11.9, test blood sugar 2 times a day, 90 day E11.9 - Type 2 diabetes mellitus without complications zinc oxide 10% 1 appl topical BID-QID PRN 78 grams 2RF skin irritation 30 days blood sugar diagnostic (FreeStyle Lite Strips) DX: E11.9, test blood sugar 2 times a day, 90 days 200 ea 4RF E11.9 - Type 2 diabetes mellitus without complications
[2025-07-13 10:57] VITALS: BP 127/62; PULSE 92; RESP 16; TEMP 37.4; O2SAT 98; BMI 34.8
--- OUTSIDE RECORDS SUMMARY | 2025-07-13 12:17 | XMS_ITS | Encounter Summary ---
Author Organization [facility] Address [address] [place] [address] Care Team Providers Care Cashier Credit Name Role Phone Stephanie Salas MD Primary Care Provider Encounter Details Date Type Department Care Team (Late st Contact Info) Description 11/15/2024 Lab Requisition [facility] - Main Lab [address] [facility] [place] [address] Social History Tobacco Use Types Packs/Day Years Used Date Smoking Tobacco: Never Assessed Comments Unknown Sex and Gender Information Value Date Recorded Sex Assigned at Not on file Legal Sex Female 3:39 PM EDT Gender Identity Not on file Sexual Orientation Not on file documented as of this encounter Plan of Treatment Not on file documented as of this encounter Visit Diagnoses Not on filedocumented in this encounter Care Teams Cashier Credit Relationship Specialty Start Date End Date Stephanie Salas MD [address] [place] [phone] PCP - General Hospitalist Medicine 10/10/24 documented as of this encounter
--- OUTSIDE RECORDS SUMMARY | 2025-07-13 12:17 | XMS_ITS | Encounter Summary ---
Author Organization [facility] Address [address] [place] [address] Care Team Providers Care Truck Body Repairer Name Role Phone Stephanie Salas MD Primary Care Provider [phone] Encounter Details Date Type Department Care Team (Late st Contact Info) Description 12/06/2024 Lab Requisition [facility] - Main Lab [address] [facility] [place] [address] Stephanie Salas MD [address] [place] [phone] Acute respiratory failure, unspecified whether with hypoxia or hypercapnia (CMS/HCC V24, CMS/HCC V28); Rhabdomyolysis Social History Tobacco Use Types Packs/Day Years [...] Procedure Name Priority Date/Time Associated Diagnosis Comments BASIC METABOLIC PANEL Routine 12/06/2024 8:45 AM EST Acute respiratory failure, unspecified whether with hypoxia or hypercapnia (CMS/HCC) Rhabdomyolysis documented in this encounter Results * (ABNORMAL) Basic metabolic panel (12/06/2024 8:45 AM EST) Sodium 133 133 - 145 mmol/L LAB CHEMISTRY METHOD 12/06/2024 11:48 AM EST [facility] Potassium 4.2 3.5 - 5.5 mmol/L LAB CHEMISTRY METHOD 12/06/2024 11:48 AM EST [facility] Comment:Hemolysis present Chloride 97 96 - 110 mmol/L LAB CHEMISTRY METHOD 12/06/2024 11:[address] [facility] CO2 29 21 - 32 mmol/L LAB CHEMISTRY METHOD 12/06/2024 11:[address] [facility] Anion Gap 7 3 - 11 LAB CHEMISTRY METHOD 12/06/2024 11:[address] [facility] Glucose 90 70 - 100 mg/dL LAB CHEMISTRY METHOD 12/06/2024 11:[address] [facility] BUN 14 5 - 25 mg/dL LAB CHEMISTRY METHOD 12/06/2024 11:[address] [facility] Creatinine 0.69 0.50 - 1.10 mg/dL LAB CHEMISTRY METHOD 12/06/2024 11:[address] [facility] eGFR 90 >=60 mL/min/1. 73m2 LAB CHEMISTRY METHOD 12/06/2024 11:[address] [facility] Comment:Calculation based on the Chronic Kidney Disease Epidemiology Collaboration (CKD-EPI) equation refit without adjustment for race. BUN/Creatinine Ratio 20.3 LAB CHEMISTRY METHOD 12/06/2024 11:[address] [facility] Calcium 7.8(L) 8.5 - 10.5 mg/dL LAB CHEMISTRY METHOD 12/06/2024 11:[address] [facility] Blood Venous blood specimen / Unknown Venipuncture / Unknown 12/06/2024 8:45 AM EST 12/06/2024 9:36 AM EST us Stephanie Salas MD LAB BLOOD ORDERABLES Final Resu lt [facility] [address] [place] [address], documented in this encounter Visit Diagnoses Diagnosis Acute respiratory failure, unspecified whether with hypoxia or hypercapnia (CMS/HCC V24, CMS/HCC V28) Rhabdomyolysis documented in this encounter Care Teams Truck Body Repairer Relationship Specialty Start Date End Date Stephanie Salas MD [address] [place] [phone] PCP - General Hospitalist Medicine 10/10/24 documented as of this encounter
--- OUTSIDE RECORDS SUMMARY | 2025-07-13 12:17 | XMS_ITS | Encounter Summary ---
Author Organization [facility] Address [address] [place] [address] Care Team Providers Care Right Of Way Worker Name Role Phone Stephanie Salas MD Primary Care Provider [phone] Encounter Details Date Type Department Care Team (Late st Contact Info) Description 11/25/[address] [facility] - Main Lab [address] [facility] [place] [address] Stephanie Salas MD [address] [place] [phone] Hypothyroidism, unspecified; Essential (primary) hypertension; Rhabdomyolysis Social History Tobacco Use Types Packs/Day [...] Associated Diagnosis Comments BASIC METABOLIC PANEL Routine 11/25/2024 7:41 AM EST Hypothyroidism, unspecified Essential (primary) hypertension Rhabdomyolysis documented in this encounter Results * (ABNORMAL) Basic metabolic panel (11/25/2024 7:41 AM EST) Sodium 134 133 - 145 mmol/L LAB CHEMISTRY METHOD 11/25/2024 11:36 AM EST [facility] Potassium 3.9 3.5 - 5.5 mmol/L LAB CHEMISTRY METHOD 11/25/2024 11:36 AM EST [facility] Chloride 96 96 - 110 mmol/L LAB CHEMISTRY METHOD 11/25/2024 11:36 AM EST [facility] CO2 31 21 - 32 mmol/L LAB CHEMISTRY METHOD 11/25/2024 11:36 AM [facility] Anion Gap 7 3 - 11 LAB CHEMISTRY METHOD 11/25/2024 11:36 AM [facility] Glucose 81 70 - 100 mg/dL LAB CHEMISTRY METHOD 11/25/2024 11:36 AM [facility] BUN 22 5 - 25 mg/dL LAB CHEMISTRY METHOD 11/25/2024 11:36 AM [facility] Creatinine 0.88 0.50 - 1.10 mg/dL LAB CHEMISTRY METHOD 11/25/2024 11:36 AM [facility] eGFR 68 >=60 mL/min/1. 73m2 LAB CHEMISTRY METHOD 11/25/2024 11:36 AM [facility] Comment:Calculation based on the Chronic Kidney Disease Epidemiology Collaboration (CKD-EPI) equation refit without adjustment for race. BUN/Creatinine Ratio 25.0 LAB CHEMISTRY METHOD 11/25/2024 11:36 AM [facility] Calcium 8.4(L) 8.5 - 10.5 mg/dL LAB CHEMISTRY METHOD 11/25/2024 11:36 AM [facility] Blood Venous blood specimen / Unknown Venipuncture / Unknown 11/25/2024 7:41 AM EST 11/25/2024 10:13 AM EST us Stephanie Salas MD LAB BLOOD ORDERABLES Final Resu lt [facility] [address] [place] [address], documented in this encounter Visit Diagnoses Diagnosis Hypothyroidism, unspecified Essential (primary) hypertension Unspecified essential hypertension Rhabdomyolysis documented in this encounter Care Teams Right Of Way Worker Relationship Specialty Start Date End Date Stephanie Salas MD [address] [place] [phone] PCP - General Hospitalist Medicine 10/10/24 documented as of this encounter
--- OUTSIDE RECORDS SUMMARY | 2025-07-13 12:17 | XMS_ITS | Encounter Summary ---
Author Organization [employer] Address [address] [place] [address] Care Team Providers Care Director Underwriter Sales Name Role Phone Stephanie Salas MD Primary Care Provider Encounter Details Date Type Department Care Team (Late st Contact Info) Description 01/28/[address] [facility] - Main Lab [address] [place] [address] Jim Dominique MD [address] [place] [address] [phone] [place], [phone] Type 2 diabetes mellitus without complications [...] Associated Diagnosis Comments COMPLETE BLOOD COUNT Routine 01/30/2025 6:16 AM EDT Type 2 diabetes mellitus without complications Heart failure, unspecified (CMS/HCC) BASIC METABOLIC PANEL Routine 01/30/2025 6:16 AM EDT Type 2 diabetes mellitus without complications Heart failure, unspecified (CMS/HCC) documented in this encounter Results * (ABNORMAL) Basic metabolic panel (01/30/2025 6:16 AM EDT) Sodium 138 133 - 145 mmol/L LAB CHEMISTRY METHOD 01/30/2025 11:07 AM EDT [facility] Potassium 3.9 3.5 - 5.5 mmol/L LAB CHEMISTRY METHOD 01/30/2025 11:07 AM [facility] Chloride 98 96 - 110 mmol/L LAB CHEMISTRY METHOD 01/30/2025 11:07 AM [facility] CO2 31 21 - 32 mmol/L LAB CHEMISTRY METHOD 01/30/2025 11:07 AM [facility] Anion Gap 9 3 - 11 LAB CHEMISTRY METHOD 01/30/2025 11:07 AM [facility] Glucose 80 70 - 100 mg/dL LAB CHEMISTRY METHOD 01/30/2025 11:07 AM [facility] BUN 26(H) 5 - 25 mg/dL LAB CHEMISTRY METHOD 01/30/2025 11:07 AM [facility] Creatinine 0.62 0.50 - 1.10 mg/dL LAB CHEMISTRY METHOD 01/30/2025 11:07 AM [facility] eGFR 92 >=60 mL/min/1. 73m2 LAB CHEMISTRY METHOD 01/30/2025 11:07 AM [facility] Comment:Calculation based on the Chronic Kidney Disease Epidemiology Collaboration (CKD-EPI) equation refit without adjustment for race. BUN/Creatinine Ratio 41.9 LAB CHEMISTRY METHOD 01/30/2025 11:07 AM [facility] Calcium 8.4(L) 8.5 - 10.5 mg/dL LAB CHEMISTRY METHOD 01/30/2025 11:07 AM [facility] Blood Venous blood specimen / Unknown Venipuncture / Unknown 01/30/2025 6:16 AM EDT 01/30/2025 9:46 AM EDT us Jim Dominique MD LAB BLOOD ORDERABLES Final Resul t [facility] [address] [place] [address], * (ABNORMAL) Complete blood count (01/30/2025 6:16 AM EDT) [facility] WBC 9.8 4.8 - 10.8 K/mcL LAB HEMETOLOGY METHOD 01/30/2025 10:00 AM [facility] RBC 3.40(L) 3.80 - 4.80 M/mcL LAB HEMETOLOGY METHOD 01/30/2025 10:00 AM [facility] Hemoglobin 10.2(L) 11.5 - 16.0 g/dL LAB HEMETOLOGY METHOD 01/30/2025 10:00 AM [facility] Hematocrit 32.2(L) 35.0 - 47.0 % LAB HEMETOLOGY METHOD 01/30/2025 10:00 AM [facility] MCV 95.5 79.0 - 98.0 FL LAB HEMETOLOGY METHOD 01/30/2025 10:00 AM [facility] MCH 30.3 27.0 - 32.0 pcg LAB HEMETOLOGY METHOD 01/30/2025 10:00 AM [facility] MCHC 31.7(L) 32.0 - 37.0 g/dL LAB HEMETOLOGY METHOD 01/30/2025 10:00 AM [facility] RDW 16.9(H) 11.0 - 15.0 % LAB HEMETOLOGY METHOD 01/30/2025 10:00 AM [facility] Platelets 560(H) 130 - 400 K/mcL LAB HEMETOLOGY METHOD 01/30/2025 10:00 AM [facility] MPV 10.4 7.0 - 11.0 FL LAB HEMETOLOGY METHOD 01/30/2025 10:00 AM [facility] NRBC 0.0 <1.0 % LAB HEMETOLOGY METHOD 01/30/2025 10:00 AM EDT [facility] NRBC Absolute 0.00 <0.10 K/mcL LAB HEMETOLOGY METHOD 01/30/2025 10:00 AM EDT [facility] Blood Venous blood specimen / Unknown Venipuncture / Unknown 01/30/2025 6:16 AM EDT 01/30/2025 9:46 AM EDT us Jim Dominique MD LAB BLOOD ORDERABLES Final Resul t [facility] [address] [place] [address], documented in this encounter Visit Diagnoses Diagnosis Type 2 diabetes mellitus without complications (CMS/HCC V24, CMS/HCC V28) Heart failure, unspecified (CMS/HCC V24, CMS/HCC V28) Heart failure, unspecified documented in this encounter Care Teams Director Underwriter Sales Relationship Specialty Start Date End Date Stephanie Salas MD [address] [place] [phone] PCP - General Hospitalist Medicine 10/10/24 documented as of this encounter
--- OUTSIDE RECORDS SUMMARY | 2025-07-13 12:17 | XMS_ITS | Encounter Summary ---
Author Organization [employer] Address [address] [place] [address] Care Team Providers Care Shanker Out Name Role Phone Stephanie Salas MD Primary Care Provider Encounter Details Date Type Department Care Team (Late st Contact Info) Description 01/23/[address] [facility] - Main Lab [address] [place] [address] Jim Dominique MD [address] [place] [address] 204 [place], [address] Heart failure, unspecified (CMS/HCC V24, CMS/HCC V28); Type 2 diabetes mellitus without complications (CMS/HCC V24, CMS/HCC V28) Social History Tobacco [...] Associated Diagnosis Comments COMPLETE BLOOD COUNT Routine 01/23/2025 5:45 AM EDT Heart failure, unspecified (CMS/HCC) Type 2 diabetes mellitus without complications (CMS/HCC) BASIC METABOLIC PANEL Routine 01/23/2025 5:45 AM EDT Heart failure, unspecified (CMS/HCC) Type 2 diabetes mellitus without complications (CMS/HCC) documented in this encounter Results * (ABNORMAL) Basic metabolic panel (01/23/2025 5:45 AM EDT) Sodium 134 133 - 145 mmol/L LAB CHEMISTRY METHOD 01/23/2025 11:[address] [facility] Potassium 3.6 3.5 - 5.5 mmol/L LAB CHEMISTRY METHOD 01/23/2025 11:48 AM [facility] Chloride 94(L) 96 - 110 mmol/L LAB CHEMISTRY METHOD 01/23/2025 11:48 AM [facility] CO2 30 21 - 32 mmol/L LAB CHEMISTRY METHOD 01/23/2025 11:48 AM [facility] Anion Gap 10 3 - 11 LAB CHEMISTRY METHOD 01/23/2025 11:48 AM [facility] Glucose 73 70 - 100 mg/dL LAB CHEMISTRY METHOD 01/23/2025 11:48 AM [facility] BUN 19 5 - 25 mg/dL LAB CHEMISTRY METHOD 01/23/2025 11:48 AM [facility] Creatinine 0.73 0.50 - 1.10 mg/dL LAB CHEMISTRY METHOD 01/23/2025 11:48 AM [facility] eGFR 85 >=60 mL/min/1. 73m2 LAB CHEMISTRY METHOD 01/23/2025 11:48 AM [facility] Comment:Calculation based on the Chronic Kidney Disease Epidemiology Collaboration (CKD-EPI) equation refit without adjustment for race. BUN/Creatinine Ratio 26.0 LAB CHEMISTRY METHOD 01/23/2025 11:48 AM [facility] Calcium 8.1(L) 8.5 - 10.5 mg/dL LAB CHEMISTRY METHOD 01/23/2025 11:48 AM [facility] Blood Venous blood specimen / Unknown Venipuncture / Unknown 01/23/2025 5:45 AM EDT 01/23/2025 9:44 AM EDT us Jim Dominique MD LAB BLOOD ORDERABLES Final Resul t [facility] [address] [place] [address], [place] [phone] * (ABNORMAL) Complete blood count (01/23/2025 5:45 AM EDT) [facility] WBC 9.7 4.8 - 10.8 K/mcL LAB HEMETOLOGY METHOD 01/23/2025 11:30 AM EDT [facility] RBC 3.40(L) 3.80 - 4.80 M/mcL LAB HEMETOLOGY METHOD 01/23/2025 11:30 AM EDT [facility] Hemoglobin 10.4(L) 11.5 - 16.0 g/dL LAB HEMETOLOGY METHOD 01/23/2025 11:30 AM [facility] Hematocrit 33.2(L) 35.0 - 47.0 % LAB HEMETOLOGY METHOD 01/23/2025 11:30 AM [facility] MCV 97.1 79.0 - 98.0 FL LAB HEMETOLOGY [facility] MCH 30.4 27.0 - 32.0 pcg LAB HEMETOLOGY METHOD 01/23/2025 11:30 AM [facility] MCHC 31.3(L) 32.0 - 37.0 g/dL LAB HEMETOLOGY METHOD 01/23/2025 11:30 AM [facility] RDW 17.9(H) 11.0 - 15.0 % LAB HEMETOLOGY [facility]23[facility]25 [facility] Platelets 467(H) 130 - 400 K/mcL LAB HEMETOLOGY METHOD 01/23/2025 11[facility] MPV 10.6 7.0 - 11.0 FL LAB HEMETOLOGY METHOD 01/23/2025 11:30 AM [facility] NRBC 0.0 <1.0 % LAB HEMETOLOGY METHOD 01/23/2025 11:30 AM EDT [facility] NRBC Absolute 0.00 <0.10 K/mcL LAB HEMETOLOGY METHOD 01/23/2025 11:30 AM EDT [facility] Blood Venous blood specimen / Unknown Venipuncture / Unknown 01/23/2025 5:45 AM EDT 01/23/2025 9:44 AM EDT us Jim Dominique MD LAB BLOOD ORDERABLES Final Resul t [facility] [address] [place] [address], documented in this encounter Visit Diagnoses Diagnosis Heart failure, unspecified (CMS/HCC V24, CMS/HCC V28) Heart failure, unspecified Type 2 diabetes mellitus without complications (CMS/HCC V24, CMS/HCC V28) documented in this encounter Care Teams Shanker Out Relationship Specialty Start Date End Date Stephanie Salas MD [address] [place] [phone] PCP - General Hospitalist Medicine 10/10/24 documented as of this encounter
--- OUTSIDE RECORDS SUMMARY | 2025-07-13 12:17 | XMS_ITS | Encounter Summary ---
Author Organization [facility] Address [address] [place] [address] Care Team Providers Care Precision Lens Polisher Name Role Phone Stephanie Salas MD Primary Care Provider [phone] Encounter Details Date Type Department Care Team (Late st Contact Info) Description 11/30/[address] [facility] Lab 299 [facility] [place] [address] Stephanie Salas MD [address] [place] [address] Essential (primary) hypertension Social History Tobacco Use Types Packs/Day Years [...] Associated Diagnosis Comments BASIC METABOLIC PANEL Routine 11/30/2024 7:35 AM EST Essential (primary) hypertension documented in this encounter Results * (ABNORMAL) Basic metabolic panel (11/30/2024 7:35 AM EST) Sodium 136 133 - 145 mmol/L LAB CHEMISTRY METHOD 11/30/2024 11:49 AM EST [facility] Potassium 4.0 3.5 - 5.5 mmol/L LAB CHEMISTRY METHOD 11/30/2024 11:49 AM EST [facility] Chloride 98 96 - 110 mmol/L LAB CHEMISTRY METHOD 11/30/2024 11:49 AM EST [facility] CO2 31 21 - 32 mmol/L LAB CHEMISTRY METHOD 11/30/2024 11:49 AM EST [facility] Anion Gap 7 3 - 11 LAB CHEMISTRY METHOD 11/30/2024 11:49 AM [facility] Glucose 97 70 - 100 mg/dL LAB CHEMISTRY METHOD 11/30/2024 11:49 AM [facility] BUN 17 5 - 25 mg/dL LAB CHEMISTRY METHOD 11/30/2024 11:49 AM [facility] Creatinine 0.80 0.50 - 1.10 mg/dL LAB CHEMISTRY METHOD 11/30/2024 11:49 AM [facility] eGFR 76 >=60 mL/min/1. 73m2 LAB CHEMISTRY METHOD 11/30/2024 11:49 AM [facility] Comment:Calculation based on the Chronic Kidney Disease Epidemiology Collaboration (CKD-EPI) equation refit without adjustment for race. BUN/Creatinine Ratio 21.3 LAB CHEMISTRY METHOD 11/30/2024 11:49 AM [facility] Calcium 8.3(L) 8.5 - 10.5 mg/dL LAB CHEMISTRY METHOD 11/30/2024 11:49 AM [facility] Blood Venous blood specimen / Unknown Venipuncture / Unknown 11/30/2024 7:35 AM EST 11/30/2024 9:44 AM EST us Stephanie Salas MD LAB BLOOD ORDERABLES Final Resu lt [facility] [address] [place] [address], documented in this encounter Visit Diagnoses Diagnosis Essential (primary) hypertension Unspecified essential hypertension documented in this encounter Care Teams Precision Lens Polisher Relationship Specialty Start Date End Date Stephanie Salas MD [address] [place] [phone] PCP - General Hospitalist Medicine 10/10/24 documented as of this encounter
--- OUTSIDE RECORDS SUMMARY | 2025-07-13 12:17 | XMS_ITS | Encounter Summary ---
Author Organization [employer] Address [address] [place] [address] Care Team Providers Care Money Market Clerk Name Role Phone Stephanie Salas MD Primary Care Provider Encounter Details Date Type Department Care Team (Late st Contact Info) Description 02/10/2025 Lab Requisition [facility] - Main Lab [address] [place] [address] Jim Dominique MD [address] [place] [address] 204 [place], [address] Type 2 diabetes mellitus without complications [...] LAB CHEMISTRY METHOD 02/13/2025 10:36 AM EDT [facility] Potassium 3.6 3.5 - 5.5 mmol/L LAB CHEMISTRY METHOD 02/13/2025 10:36 AM [facility] Chloride 98 96 - 110 mmol/L LAB CHEMISTRY METHOD 02/13/2025 10:36 AM [facility] CO2 28 21 - 32 mmol/L LAB CHEMISTRY METHOD 02/13/2025 10:36 AM [facility] Anion Gap 11 3 - 11 LAB CHEMISTRY METHOD 02/13/2025 10:36 AM [facility] Glucose 110(H) 70 - 100 mg/dL LAB CHEMISTRY METHOD 02/13/2025 10:36 AM [facility] BUN 32(H) 5 - 25 mg/dL LAB CHEMISTRY METHOD 02/13/2025 10:36 AM [facility] Creatinine 0.67 0.50 - 1.10 mg/dL LAB CHEMISTRY METHOD 02/13/2025 10:36 AM [facility] eGFR 90 >=60 mL/min/1. 73m2 LAB CHEMISTRY METHOD 02/13/2025 10:36 AM [facility] Comment:Calculation based on the Chronic Kidney Disease Epidemiology Collaboration (CKD-EPI) equation refit without adjustment for race. BUN/Creatinine Ratio 47.8 LAB CHEMISTRY METHOD 02/13/2025 10:36 AM [facility] Calcium 8.9 8.5 - 10.5 mg/dL LAB CHEMISTRY METHOD 02/13/2025 10:36 AM [facility] Blood Venous blood specimen / Unknown Venipuncture / Unknown 02/13/2025 6:29 AM EDT 02/13/2025 9:54 AM EDT us Jim Dominique MD LAB BLOOD ORDERABLES Final Resul t [facility] [address] [place] [address], * (ABNORMAL) Complete blood count (02/13/2025 6:29 AM EDT) [facility] WBC 10.7 4.8 - 10.8 K/mcL LAB HEMETOLOGY METHOD 02/13/2025 10:07 AM [facility] RBC 3.50(L) 3.80 - 4.80 M/mcL LAB HEMETOLOGY METHOD 02/13/2025 10:07 AM [facility] Hemoglobin 10.8(L) 11.5 - 16.0 g/dL LAB HEMETOLOGY METHOD 02/13/2025 10:07 AM [facility] Hematocrit 34.4(L) 35.0 - 47.0 % LAB HEMETOLOGY METHOD 02/13/2025 10:07 AM [facility] MCV 97.7 79.0 - 98.0 FL LAB HEMETOLOGY METHOD 02/13/2025 10:07 AM [facility] MCH 30.7 27.0 - 32.0 pcg LAB HEMETOLOGY METHOD 02/13/2025 10:07 AM [facility] MCHC 31.4(L) 32.0 - 37.0 g/dL LAB HEMETOLOGY METHOD 02/13/2025 10:07 AM [facility] RDW 16.5(H) 11.0 - 15.0 % LAB HEMETOLOGY METHOD 02/13/2025 10:07 AM [facility] Platelets 361 130 - 400 K/mcL LAB HEMETOLOGY METHOD 02/13/2025 10:07 AM [facility] MPV 11.3(H) 7.0 - 11.0 FL LAB HEMETOLOGY METHOD 02/13/2025 10:07 AM [facility] NRBC 0.0 <1.0 % LAB HEMETOLOGY METHOD 02/13/2025 10:07 AM EDT [facility] NRBC Absolute 0.00 <0.10 K/mcL LAB HEMETOLOGY METHOD 02/13/2025 10:07 AM EDT [facility] Blood Venous blood specimen / Unknown Venipuncture / Unknown 02/13/2025 6:29 AM EDT 02/13/2025 9:54 AM EDT us Jim Dominique MD LAB BLOOD ORDERABLES Final Resul t [facility] [address] [place] [address], documented in this encounter Visit Diagnoses Diagnosis Type 2 diabetes mellitus without complications (CMS/HCC V24, CMS/HCC V28) Heart failure, unspecified (CMS/HCC V24, CMS/HCC V28) Heart failure, unspecified documented in this encounter Care Teams Money Market Clerk Relationship Specialty Start Date End Date Stephanie Salas MD [address] [place] [phone] PCP - General Hospitalist Medicine 10/10/24 documented as of this encounter
--- OUTSIDE RECORDS SUMMARY | 2025-07-13 12:17 | XMS_ITS | Encounter Summary ---
Author Organization [employer] Address [address] [place] [address] Care Team Providers Care Acquisitions Analyst Name Role Phone Stephanie Salas MD Primary Care Provider [phone] Encounter Details Date Type Department Care Team (Late st Contact Info) Description 02/17/2025 Lab Requisition [facility] - Main Lab 299 [facility] [place] [address] Jim Dominique MD [address] [place] [address] 204 [place], [address] Type 2 diabetes mellitus without complications (CMS/HCC V24, CMS/HCC V28); Heart failure, unspecified (CMS/HCC V24, CMS/HCC V28); Other specified abnormal findings of blood chemistry Social History Tobacco Use Types Packs/Day Years [...] Associated Diagnosis Comments COMPLETE BLOOD COUNT Routine 02/20/2025 6:58 AM EDT Type 2 diabetes mellitus without complications (CMS/HCC V24, CMS/HCC V28) Heart failure, unspecified (CMS/HCC V24, CMS/HCC V28) Other specified abnormal findings of blood chemistry PREALBUMIN Routine 02/20/2025 6:58 AM EDT Type 2 diabetes mellitus without complications (CMS/HCC V24, CMS/HCC V28) Heart failure, unspecified (CMS/HCC V24, CMS/HCC V28) Other specified abnormal findings of blood chemistry BASIC METABOLIC PANEL Routine 02/20/2025 6:58 AM EDT Type 2 diabetes mellitus without complications ([facility] V24, [facility] V28) Heart failure, unspecified ([facility] V24, [facility] V28) Other specified abnormal findings of blood chemistry documented in this encounter Results * (ABNORMAL) Prealbumin (02/20/2025 6:58 AM EDT) Prealbumin 12(L) 18 - 45 mg/dL LAB CHEMISTRY METHOD 02/20/2025 11:39 AM EDT [facility] Blood Venous blood specimen / Unknown Venipuncture / Unknown 02/20/2025 6:58 AM EDT 02/20/2025 10:37 AM EDT us Jim Dominique MD LAB BLOOD ORDERABLES Final Resul t [facility] [address] [place] [address], * (ABNORMAL) Basic metabolic panel (02/20/2025 6:58 AM EDT) Pathologist [facility] Sodium 137 133 - 145 mmol/L LAB CHEMISTRY METHOD 02/20/2025 11:36 AM [facility] Potassium 3.7 3.5 - 5.5 mmol/L LAB CHEMISTRY METHOD 02/20/2025 11:36 AM [facility] Chloride 101 96 - 110 mmol/L LAB CHEMISTRY METHOD 02/20/2025 11:36 AM [facility] CO2 28 21 - 32 mmol/L LAB CHEMISTRY METHOD 02/20/2025 11:36 AM [facility] Anion Gap 8 3 - 11 LAB CHEMISTRY METHOD 02/20/2025 11:36 AM [facility] Glucose 108(H) 70 - 100 mg/dL LAB CHEMISTRY METHOD 02/20/2025 11:36 AM [facility] BUN 27(H) 5 - 25 mg/dL LAB CHEMISTRY METHOD 02/20/2025 11:36 AM T [facility] Creatinine 0.69 0.50 - 1.10 mg/dL LAB CHEMISTRY METHOD 02/20/2025 11:36 AM EDT [facility] eGFR 89 >=60 mL/min/1. 73m2 LAB CHEMISTRY METHOD 02/20/2025 11:36 AM T [facility] Comment:Calculation based on the Chronic Kidney Disease Epidemiology Collaboration (CKD-EPI) equation refit without adjustment for race. BUN/Creatinine Ratio 39.1 LAB CHEMISTRY METHOD 02/20/2025 11:36 AM [facility] Calcium 8.9 8.5 - 10.5 mg/dL LAB CHEMISTRY METHOD 02/20/2025 11:36 AM [facility] Blood Venous blood specimen / Unknown Venipuncture / Unknown 02/20/2025 6:58 AM EDT 02/20/2025 10:37 AM EDT us Jim Dominique MD LAB BLOOD ORDERABLES Final Resul t [facility] [address] [place] [address], * (ABNORMAL) Complete blood count (02/20/2025 6:58 AM EDT) WBC 11.4(H) 4.8 - 10.8 K/mcL LAB HEMETOLOGY METHOD 02/20/2025 11:17 AM EDT [facility] RBC 3.10(L) 3.80 - 4.80 M/[facility] LAB HEMETOLOGY METHOD 02/20/2025 11:17 AM T [facility] Hemoglobin 9.8(L) 11.5 - 16.0 g/dL LAB HEMETOLOGY METHOD 02/20/2025 11:17 AM T [facility] Hematocrit 31.0(L) 35.0 - 47.0 % LAB HEMETOLOGY METHOD 02/20/2025 11:17 AM EDT [facility] MCV 99.0(H) 79.0 - 98.0 FL LAB HEMETOLOGY METHOD 02/20/2025 11:17 AM EDT [facility] MCH 31.3 27.0 - 32.0 pcg LAB HEMETOLOGY METHOD 02/20/2025 11:17 AM EDT [facility] MCHC 31.6(L) 32.0 - 37.0 g/dL LAB HEMETOLOGY METHOD 02/20/2025 11:17 AM EDT [facility] RDW 16.6(H) 11.0 - 15.0 % LAB HEMETOLOGY METHOD 02/20/2025 11:17 AM [facility] Platelets 359 130 - 400 K/mcL LAB HEMETOLOGY METHOD 02/20/2025 11:17 AM EDT [facility] MPV 11.0 7.0 - 11.0 FL LAB HEMETOLOGY METHOD 02/20/2025 11:17 AM EDT [facility] NRBC 0.0 <1.0 % LAB HEMETOLOGY METHOD 02/20/2025 11:17 AM [facility] NRBC Absolute 0.00 <0.10 K/mcL LAB HEMETOLOGY METHOD 02/20/2025 11:17 AM T [facility] Blood Venous blood specimen / Unknown Venipuncture / Unknown 02/20/2025 6:58 AM EDT 02/20/2025 10:37 AM EDT us Jim Dominique MD LAB BLOOD ORDERABLES Final Resul t [facility] [address] [place] [address], documented in this encounter Visit Diagnoses Diagnosis Type 2 diabetes mellitus without complications ([facility] V24, [facility] V28) Heart failure, unspecified ([facility] V24, [facility] V28) Heart failure, unspecified Other specified abnormal findings of blood chemistry documented in this encounter Care Teams Acquisitions Analyst Relationship Specialty Start Date End Date Stephanie Salas MD [address] [place] [id number] PCP - General Hospitalist Medicine 10/10/24 documented as of this encounter
--- OUTSIDE RECORDS SUMMARY | 2025-07-13 12:17 | XMS_ITS | Encounter Summary ---
Author Organization [employer] Address [address] [place] [address] Care Team Providers Care Pattern Layout Worker Name Role Phone Stephanie Salas MD Primary Care Provider Encounter Details Date Type Department Care Team (Late st Contact Info) Description 02/05/2025 Lab Requisition [facility] - Main Lab [address] [facility] [place] [address] Jim Dominique MD [address] [place] [address] 204 [place], [address] Type 2 diabetes mellitus without complications [...] Associated Diagnosis Comments COMPLETE BLOOD COUNT Routine 02/06/2025 7:42 AM EDT Type 2 diabetes mellitus without complications Heart failure, unspecified (CMS/HCC) PREALBUMIN Routine 02/06/2025 7:42 AM EDT Type 2 diabetes mellitus without complications Heart failure, unspecified (CMS/HCC) BASIC METABOLIC PANEL Routine 02/06/2025 7:42 AM EDT Type 2 diabetes mellitus without complications Heart failure, unspecified (CMS/HCC) documented in this encounter Results * (ABNORMAL) Prealbumin (02/06/2025 7:42 AM EDT) Prealbumin 12(L) 18 - 45 mg/dL LAB CHEMISTRY METHOD 02/06/2025 12:48 PM [facility] Blood Venous blood specimen / Unknown Venipuncture / Unknown 02/06/2025 7:42 AM EDT 02/06/2025 10:40 AM EDT us Jim Dominique MD LAB BLOOD ORDERABLES Final Resul t [facility] [address] [place] [address], [place] [phone] * (ABNORMAL) Basic metabolic panel (02/06/2025 7:42 AM EDT) [facility] Sodium 139 133 - 145 mmol/L LAB CHEMISTRY METHOD 02/06/2025 12:47 PM [facility] Potassium 4.7 3.5 - 5.5 mmol/L LAB CHEMISTRY METHOD 02/06/2025 12:47 PM [facility] Chloride 103 96 - 110 mmol/L LAB CHEMISTRY METHOD 02/06/2025 12:47 PM [facility] CO2 26 21 - 32 mmol/L LAB CHEMISTRY METHOD 02/06/2025 12:47 PM [facility] Anion Gap 10 3 - 11 LAB CHEMISTRY METHOD 02/06/2025 12:47 PM [facility] Glucose 98 70 - 100 mg/dL LAB CHEMISTRY METHOD 02/06/2025 12:47 PM [facility] BUN 28(H) 5 - 25 mg/dL LAB CHEMISTRY METHOD 02/06/2025 12:47 PM [facility] Creatinine 0.70 0.50 - 1.10 mg/dL LAB CHEMISTRY METHOD 02/06/2025 12:47 PM [facility] eGFR 89 >=60 mL/min/1. 73m2 LAB CHEMISTRY METHOD 02/06/2025 12:47 PM EDT [facility] Comment:Calculation based on the Chronic Kidney Disease Epidemiology Collaboration (CKD-EPI) equation refit without adjustment for race. BUN/Creatinine Ratio 40.0 LAB CHEMISTRY METHOD 02/06/2025 12:47 PM EDT [facility] Calcium 9.1 8.5 - 10.5 mg/dL LAB CHEMISTRY METHOD 02/06/2025 12:47 PM EDT [facility] Blood Venous blood specimen / Unknown Venipuncture / Unknown 02/06/2025 7:42 AM EDT 02/06/2025 10:40 AM EDT us Jim Dominique MD LAB BLOOD ORDERABLES Final Resul t [facility] [address] [place] [address], * (ABNORMAL) Complete blood count (02/06/2025 7:42 AM EDT) WBC 9.9 4.8 - 10.8 K/mcL LAB HEMETOLOGY METHOD 02/06/2025 11:34 AM [facility] RBC 3.30(L) 3.80 - 4.80 M/mcL LAB HEMETOLOGY METHOD 02/06/2025 11:34 AM [facility] Hemoglobin 10.2(L) 11.5 - 16.0 g/dL LAB HEMETOLOGY METHOD 02/06/2025 11:34 AM T [facility] Hematocrit 33.1(L) 35.0 - 47.0 % LAB HEMETOLOGY METHOD 02/06/2025 11:34 AM [facility] MCV 100.6(H) 79.0 - 98.0 FL LAB HEMETOLOGY METHOD 02/06/2025 11:34 AM [facility] MCH 31.0 27.0 - 32.0 pcg LAB HEMETOLOGY METHOD 02/06/2025 11:34 AM EDT [facility] MCHC 30.8(L) 32.0 - 37.0 g/dL LAB HEMETOLOGY METHOD 02/06/2025 11:34 AM T [facility] RDW 16.8(H) 11.0 - 15.0 % LAB HEMETOLOGY METHOD 02/06/2025 11:34 AM EDT [facility] Platelets 448(H) 130 - 400 K/mcL LAB HEMETOLOGY METHOD 02/06/2025 11:34 AM EDT [facility] MPV 11.3(H) 7.0 - 11.0 FL LAB HEMETOLOGY METHOD 02/06/2025 11:34 AM EDT [facility] NRBC 0.0 <1.0 % LAB HEMETOLOGY METHOD 02/06/2025 11:34 AM EDT [facility] NRBC Absolute 0.00 <0.10 K/mcL LAB HEMETOLOGY METHOD 02/06/2025 11:34 AM T [facility] Blood Venous blood specimen / Unknown Venipuncture / Unknown 02/06/2025 7:42 AM EDT 02/06/2025 10:40 AM EDT us Jim Dominique MD LAB BLOOD ORDERABLES Final Resul t [facility] [address] [place] [address], [place] [phone] documented in this encounter Visit Diagnoses Diagnosis Type 2 diabetes mellitus without complications (CMS/HCC V24, CMS/HCC V28) Heart failure, unspecified (CMS/HCC V24, CMS/HCC V28) Heart failure, unspecified documented in this encounter Care Teams Pattern Layout Worker Relationship Specialty Start Date End Date Stephanie Salas MD [address] [place] [phone] PCP - General Hospitalist Medicine 10/10/24 documented as of this encounter
--- OUTSIDE RECORDS SUMMARY | 2025-07-13 12:17 | XMS_ITS | Encounter Summary ---
Author Organization [employer] [facility] Address [address] [place] [address] Care Team Providers Care Profiling Machine Set Up Operator Tool Name Role Phone Stephanie Salas MD Primary Care Provider [phone] Encounter Details Date Type Department Care Team (Late st Contact Info) Description 11/14/2024 Lab Requisition [facility] - Main Lab 299 [facility] [place] [address] Stephanie Salas MD [address] [place] [phone] Rhabdomyolysis; Disease of digestive system, unspecified; Respiratory failure, unspecified, unspecified whether with hypoxia or hypercapnia (CMS/HCC V24, CMS/HCC V28); Essential (primary) hypertension Social History Tobacco Use [...] Associated Diagnosis Comments BASIC METABOLIC PANEL Routine 11/14/2024 8:05 AM EST Rhabdomyolysis Disease of digestive system, unspecified Respiratory failure, unspecified, unspecified whether with hypoxia or hypercapnia (CMS/HCC) Essential (primary) hypertension documented in this encounter Results * (ABNORMAL) Basic metabolic panel (11/14/2024 8:05 AM EST) Sodium 132(L) 133 - 145 mmol/L LAB CHEMISTRY METHOD 11/14/2024 11:48 AM EST [facility] Potassium 4.5 3.5 - 5.5 mmol/L LAB CHEMISTRY METHOD 11/14/2024 11:48 AM EST [facility] Chloride 92(L) 96 - 110 mmol/L LAB CHEMISTRY METHOD 11/14/2024 11:48 AM [facility] CO2 33(H) 21 - 32 mmol/L LAB CHEMISTRY METHOD 11/14/2024 11:48 AM [facility] Anion Gap 7 3 - 11 LAB CHEMISTRY METHOD 11/14/2024 11:48 AM [facility] Glucose 86 70 - 100 mg/dL LAB CHEMISTRY METHOD 11/14/2024 11:48 AM [facility] BUN 48(H) 5 - 25 mg/dL LAB CHEMISTRY METHOD 11/14/2024 11:48 AM [facility] Creatinine 2.00(H) 0.50 - 1.10 mg/dL LAB CHEMISTRY METHOD 11/14/2024 11:48 AM [facility] eGFR 25(L) >=60 mL/min/1. 73m2 LAB CHEMISTRY METHOD 11/14/2024 11:48 AM [facility] Comment:Calculation based on the Chronic Kidney Disease Epidemiology Collaboration (CKD-EPI) equation refit without adjustment for race. BUN/Creatinine Ratio 24.0 LAB CHEMISTRY METHOD 11/14/2024 11:48 AM [facility] Calcium 8.4(L) 8.5 - 10.5 mg/dL LAB CHEMISTRY METHOD 11/14/2024 11:48 AM [facility] Blood Venous blood specimen / Unknown Venipuncture / Unknown 11/14/2024 8:05 AM EST 11/14/2024 10:33 AM EST us Stephanie Salas MD LAB BLOOD ORDERABLES Final Resu lt [facility] [address] [place] [address], documented in this encounter Visit Diagnoses Diagnosis Rhabdomyolysis Disease of digestive system, unspecified Respiratory failure, unspecified, unspecified whether with hypoxia or hypercapnia (CMS/HCC V24, CMS/HCC V28) Essential (primary) hypertension Unspecified essential hypertension documented in this encounter Care Teams Profiling Machine Set Up Operator Tool Relationship Specialty Start Date End Date Stephanie Salas MD [address] [place] [phone] PCP - General Hospitalist Medicine 10/10/24 documented as of this encounter
--- OUTSIDE RECORDS SUMMARY | 2025-07-13 12:17 | XMS_ITS | Encounter Summary ---
Author Organization [facility] [facility] Address [address] [place] [address] Care Team Providers Care Quality Control Engineer Name Role Phone Stephanie Salas MD Primary Care Provider Encounter Details Date Type Department Care Team (Late st Contact Info) Description 11/22/[address] [facility] - Main Lab 299 [facility] [place] [address] Stephanie Salas MD [address] [place] [phone] Rhabdomyolysis; Essential (primary) hypertension Social History Tobacco Use [...] Associated Diagnosis Comments COMPLETE BLOOD COUNT Routine 11/22/2024 5:20 AM EST Rhabdomyolysis Essential (primary) hypertension BASIC METABOLIC PANEL Routine 11/22/2024 5:20 AM EST Rhabdomyolysis Essential (primary) hypertension documented in this encounter Results * (ABNORMAL) Basic metabolic panel (11/22/2024 5:20 AM EST) Sodium 134 133 - 145 mmol/L LAB CHEMISTRY METHOD 11/22/2024 7:44 AM EST [facility] Potassium 4.5 3.5 - 5.5 mmol/L LAB CHEMISTRY METHOD 11/22/2024 7:44 AM EST [facility] Chloride 95(L) 96 - 110 mmol/L LAB CHEMISTRY METHOD 11/22/2024 7:44 AM [facility] CO2 32 21 - 32 mmol/L LAB CHEMISTRY METHOD 11/22/2024 7:44 AM [facility] Anion Gap 7 3 - 11 LAB CHEMISTRY METHOD 11/22/2024 7:44 AM [facility] Glucose 84 70 - 100 mg/dL LAB CHEMISTRY METHOD 11/22/2024 7:44 AM [facility] BUN 28(H) 5 - 25 mg/dL LAB CHEMISTRY METHOD 11/22/2024 7:44 AM [facility] Creatinine 1.13(H) 0.50 - 1.10 mg/dL LAB CHEMISTRY METHOD 11/22/2024 7:44 AM [facility] eGFR 50(L) >=60 mL/min/1. 73m2 LAB CHEMISTRY METHOD 11/22/2024 7:44 AM [facility] Comment:Calculation based on the Chronic Kidney Disease Epidemiology Collaboration (CKD-EPI) equation refit without adjustment for race. BUN/Creatinine Ratio 24.8 LAB CHEMISTRY METHOD 11/22/2024 7:44 AM [facility] Calcium 8.2(L) 8.5 - 10.5 mg/dL LAB CHEMISTRY METHOD 11/22/2024 7:44 AM [facility] Blood Venous blood specimen / Unknown Venipuncture / Unknown 11/22/2024 5:20 AM EST 11/22/2024 6:50 AM EST us Stephanie Salas MD LAB BLOOD ORDERABLES Final Resu lt [facility] [address] [place] [address], * (ABNORMAL) Complete blood count (11/22/2024 5:20 AM EST) WBC 9.2 4.8 - 10.8 K/mcL LAB HEMETOLOGY METHOD 11/22/2024 7:27 AM [facility] RBC 3.80 3.80 - 4.80 M/mcL LAB HEMETOLOGY METHOD 11/22/2024 7:27 AM [facility] Hemoglobin 11.2(L) 11.5 - 16.0 g/dL LAB HEMETOLOGY METHOD 11/22/2024 7:27 AM [facility] Hematocrit 34.2(L) 35.0 - 47.0 % LAB HEMETOLOGY METHOD 11/22/2024 7:27 AM [facility] MCV 91.0 79.0 - 98.0 FL LAB HEMETOLOGY METHOD 11/22/2024 7:27 AM [facility] MCH 29.8 27.0 - 32.0 pcg LAB HEMETOLOGY METHOD 11/22/2024 7:27 AM [facility] MCHC 32.7 32.0 - 37.0 g/dL LAB HEMETOLOGY METHOD 11/22/2024 7:27 AM [facility] RDW 15.2(H) 11.0 - 15.0 % LAB HEMETOLOGY METHOD 11/22/2024 7:27 AM [facility] Platelets 366 130 - 400 K/mcL LAB HEMETOLOGY METHOD 11/22/2024 7:27 AM [facility] MPV 10.0 7.0 - 11.0 FL LAB HEMETOLOGY METHOD 11/22/2024 7:27 AM [facility] NRBC 0.0 <1.0 % LAB HEMETOLOGY METHOD 11/22/2024 7:27 AM [facility] NRBC Absolute 0.00 <0.10 K/mcL LAB HEMETOLOGY METHOD 11/22/2024 7:27 AM [facility] Blood Venous blood specimen / Unknown Venipuncture / Unknown 11/22/2024 5:20 AM EST 11/22/2024 6:50 AM EST us Stephanie Salas MD LAB BLOOD ORDERABLES Final Resu lt [facility] [address] [place] [address], documented in this encounter Visit Diagnoses Diagnosis Rhabdomyolysis Essential (primary) hypertension Unspecified essential hypertension documented in this encounter Care Teams Quality Control Engineer Relationship Specialty Start Date End Date Stephanie Salas MD [address] [place] [address] PCP - General Hospitalist Medicine 10/10/24 documented as of this encounter
--- OUTSIDE RECORDS SUMMARY | 2025-07-13 12:17 | XMS_ITS | Encounter Summary ---
Author Organization [employer] Address [address] [place] [address] Care Team Providers Care Substitute Nurse Name Role Phone Stephanie Salas MD Primary Care Provider [phone] Encounter Details Date Type Department Care Team (Late st Contact Info) Description 02/24/2025 Lab Requisition [facility] - Main Lab 299 [facility] [place] [address] Jim Dominique MD [address] [place] [address] [address] [place], [address] Type 2 diabetes mellitus without complications [...] Associated Diagnosis Comments COMPLETE BLOOD COUNT Routine 02/27/2025 6:10 AM EDT Type 2 diabetes mellitus without complications (CMS/HCC V24, CMS/HCC V28) Heart failure, unspecified (CMS/HCC V24, CMS/HCC V28) BASIC METABOLIC PANEL Routine 02/27/2025 6:10 AM EDT Type 2 diabetes mellitus without complications (CMS/HCC V24, CMS/HCC V28) Heart failure, unspecified (CMS/HCC V24, CMS/HCC V28) documented in this encounter Results * (ABNORMAL) Basic metabolic panel (02/27/2025 6:10 AM EDT) Sodium 137 133 - 145 mmol/L LAB CHEMISTRY METHOD 02/27/2025 2:23 PM [facility] Potassium 3.6 3.5 - 5.5 mmol/L LAB CHEMISTRY METHOD 02/27/2025 2:23 PM [facility] Chloride 97 96 - 110 mmol/L LAB CHEMISTRY METHOD 02/27/2025 2:23 PM [facility] CO2 29 21 - 32 mmol/L LAB CHEMISTRY METHOD 02/27/2025 2:23 PM [facility] Anion Gap 11 3 - 11 LAB CHEMISTRY METHOD 02/27/2025 2:23 PM [facility] Glucose 85 70 - 100 mg/dL LAB CHEMISTRY METHOD 02/27/2025 2:23 PM [facility] BUN 43(H) 5 - 25 mg/dL LAB CHEMISTRY METHOD 02/27/2025 2:23 PM [facility] Creatinine 0.85 0.50 - 1.10 mg/dL LAB CHEMISTRY METHOD 02/27/2025 2:23 PM [facility] eGFR 70 >=60 mL/min/1. 73m2 LAB CHEMISTRY METHOD 02/27/2025 2:23 PM [facility] Comment:Calculation based on the Chronic Kidney Disease Epidemiology Collaboration (CKD-EPI) equation refit without adjustment for race. BUN/Creatinine Ratio 50.6 LAB CHEMISTRY METHOD 02/27/2025 2:23 PM [facility] Calcium 9.2 8.5 - 10.5 mg/dL LAB CHEMISTRY METHOD 02/27/2025 2:23 PM [facility] Blood Venous blood specimen / Unknown Venipuncture / Unknown 02/27/2025 6:10 AM EDT 02/27/2025 10:22 AM EDT us Jim Dominique MD LAB BLOOD ORDERABLES Final Resul t [facility] [address] [place] [address], * (ABNORMAL) Complete blood count (02/27/2025 6:10 AM EDT) WBC 12.6(H) 4.8 - 10.8 K/mcL LAB HEMETOLOGY METHOD 02/27/2025 11:35 AM EDT [facility] RBC 3.30(L) 3.80 - 4.80 M/mcL LAB HEMETOLOGY METHOD 02/27/2025 11:35 AM EDT [facility] Hemoglobin 10.2(L) 11.5 - 16.0 g/dL LAB HEMETOLOGY METHOD 02/27/2025 11:35 AM EDT [facility] Hematocrit 32.3(L) 35.0 - 47.0 % LAB HEMETOLOGY METHOD 02/27/2025 11:35 AM EDT [facility] MCV 98.2(H) 79.0 - 98.0 FL LAB HEMETOLOGY METHOD 02/27/2025 11:35 AM EDT [facility] MCH 31.0 27.0 - 32.0 pcg LAB HEMETOLOGY METHOD 02/27/2025 11:35 AM T [facility] MCHC 31.6(L) 32.0 - 37.0 g/dL LAB HEMETOLOGY METHOD 02/27/2025 11:35 AM EDT [facility] RDW 16.0(H) 11.0 - 15.0 % LAB HEMETOLOGY METHOD 02/27/2025 11:35 AM EDT [facility] Platelets 349 130 - 400 K/mcL LAB HEMETOLOGY METHOD 02/27/2025 11:35 AM EDT [facility] MPV 11.4(H) 7.0 - 11.0 FL LAB HEMETOLOGY METHOD 02/27/2025 11:35 AM EDT [facility] NRBC 0.0 <1.0 % LAB HEMETOLOGY METHOD 02/27/2025 11:35 AM EDT [facility] NRBC Absolute 0.00 <0.10 K/mcL LAB HEMETOLOGY METHOD 02/27/2025 11:35 AM EDT [facility] Blood Venous blood specimen / Unknown Venipuncture / Unknown 02/27/2025 6:10 AM EDT 02/27/2025 10:22 AM EDT us Jim Dominique MD LAB BLOOD ORDERABLES Final Resul t [facility] [address] [place] [address], [place] [phone] documented in this encounter Visit Diagnoses Diagnosis Type 2 diabetes mellitus without complications (CMS/HCC V24, CMS/HCC V28) Heart failure, unspecified (CMS/HCC V24, CMS/HCC V28) Heart failure, unspecified documented in this encounter Care Teams Substitute Nurse Relationship Specialty Start Date End Date Stephanei Salas MD [address] [place] [id number] PCP - General Hospitalist Medicine 10/10/24 documented as of this encounter
--- OUTSIDE RECORDS SUMMARY | 2025-07-13 12:17 | XMS_ITS | Encounter Summary ---
Author Organization [employer] [facility] Address [address] [place] [address] Care Team Providers Care Minute Clerk Name Role Phone Stephanie Salas MD Primary Care Provider [phone] Encounter Details Date Type Department Care Team (Late st Contact Info) Description 11/15/2024 Lab Requisition [facility] Lab 299 [facility] [place] [address] Stephanie Salas MD [address] [place] [address] Rhabdomyolysis; Chronic respiratory failure, unspecified whether with hypoxia or hypercapnia (CMS/HCC V24, CMS/HCC V28); Heart failure, unspecified [...] Associated Diagnosis Comments BASIC METABOLIC PANEL Routine 11/15/2024 5:56 AM EST Rhabdomyolysis Chronic respiratory failure, unspecified whether with hypoxia or hypercapnia (CMS/HCC) Heart failure, unspecified (CMS/HCC) documented in this encounter Results * (ABNORMAL) Basic metabolic panel (11/15/2024 5:56 AM EST) Sodium 131(L) 133 - 145 mmol/L LAB CHEMISTRY METHOD 11/15/2024 10:40 AM EST [facility] Potassium 4.3 3.5 - 5.5 mmol/L LAB CHEMISTRY METHOD 11/15/2024 10:40 AM EST [facility] Chloride 91(L) 96 - 110 mmol/L LAB CHEMISTRY METHOD 11/15/2024 10:40 AM EST [facility] CO2 33(H) 21 - 32 mmol/L LAB CHEMISTRY METHOD 11/15/2024 10:40 AM [facility] Anion Gap 7 3 - 11 LAB CHEMISTRY METHOD 11/15/2024 10:40 AM [facility] Glucose 81 70 - 100 mg/dL LAB CHEMISTRY METHOD 11/15/2024 10:40 AM [facility] BUN 51(H) 5 - 25 mg/dL LAB CHEMISTRY METHOD 11/15/2024 10:40 AM [facility] Creatinine 2.05(H) 0.50 - 1.10 mg/dL LAB CHEMISTRY METHOD 11/15/2024 10:40 AM [facility] eGFR 25(L) >=60 mL/min/1. 73m2 LAB CHEMISTRY METHOD 11/15/2024 10:40 AM EST [facility] Comment:Calculation based on the Chronic Kidney Disease Epidemiology Collaboration (CKD-EPI) equation refit without adjustment for race. BUN/Creatinine Ratio 24.9 LAB CHEMISTRY METHOD 11/15/2024 10:40 AM [facility] Calcium 8.4(L) 8.5 - 10.5 mg/dL LAB CHEMISTRY METHOD 11/15/2024 10:40 AM [facility] Blood Venous blood specimen / Unknown Venipuncture / Unknown 11/15/2024 5:56 AM EST 11/15/2024 9:30 AM EST us Stephanie Salas MD LAB BLOOD ORDERABLES Final Resu lt [facility] [address] [place] [address], [place] [phone] documented in this encounter Visit Diagnoses Diagnosis Rhabdomyolysis Chronic respiratory failure, unspecified whether with hypoxia or hypercapnia (CMS/HCC V24, CMS/HCC V28) Heart failure, unspecified ([facility] V24, [facility] V28) Heart failure, unspecified documented in this encounter Care Teams Minute Clerk Relationship Specialty Start Date End Date Stephanie Salas MD [address] [place] [phone] PCP - General Hospitalist Medicine 10/10/24 documented as of this encounter
--- OUTSIDE RECORDS SUMMARY | 2025-07-13 12:17 | XMS_ITS | Encounter Summary ---
Author Organization [facility] Address [address] [place] [address] Care Team Providers Care Group Exercise Class Instructor Name Role Phone Stephanie Salas MD Primary Care Provider [phone] Encounter Details Date Type Department Care Team (Late st Contact Info) Description 11/18/2024 Lab Requisition [facility] Lab 299 [facility] [place] [address] Stephanie Salas MD [address] [place] [phone] Essential (primary) hypertension; Hyperlipidemia, unspecified Social History Tobacco Use Types Packs/Day Years [...] Associated Diagnosis Comments BASIC METABOLIC PANEL Routine 11/18/2024 6:13 AM EST Essential (primary) hypertension Hyperlipidemia, unspecified documented in this encounter Results * (ABNORMAL) Basic metabolic panel (11/18/2024 6:13 AM EST) Sodium 132(L) 133 - 145 mmol/L LAB CHEMISTRY METHOD 11/18/2024 11:15 AM EST [facility] Potassium 4.7 3.5 - 5.5 mmol/L LAB CHEMISTRY METHOD 11/18/2024 11:15 AM EST [facility] Chloride 91(L) 96 - 110 mmol/L LAB CHEMISTRY METHOD 11/18/2024 11:15 AM EST [facility] CO2 33(H) 21 - 32 mmol/L LAB CHEMISTRY METHOD 11/18/2024 11:15 AM [facility] Anion Gap 8 3 - 11 LAB CHEMISTRY METHOD 11/18/2024 11:15 AM [facility] Glucose 70 70 - 100 mg/dL LAB CHEMISTRY METHOD 11/18/2024 11:15 AM [facility] BUN 49(H) 5 - 25 mg/dL LAB CHEMISTRY METHOD 11/18/2024 11:15 AM [facility] Creatinine 1.93(H) 0.50 - 1.10 mg/dL LAB CHEMISTRY METHOD 11/18/2024 11:15 AM [facility] eGFR 26(L) >=60 mL/min/1. 73m2 LAB CHEMISTRY METHOD 11/18/2024 11:15 AM [facility] Comment:Calculation based on the Chronic Kidney Disease Epidemiology Collaboration (CKD-EPI) equation refit without adjustment for race. BUN/Creatinine Ratio 25.4 LAB CHEMISTRY METHOD 11/18/2024 11:15 AM [facility] Calcium 8.3(L) 8.5 - 10.5 mg/dL LAB CHEMISTRY METHOD 11/18/2024 11:15 AM [facility] Blood Venous blood specimen / Unknown Venipuncture / Unknown 11/18/2024 6:13 AM EST 11/18/2024 9:57 AM EST us Stephanie Salas MD LAB BLOOD ORDERABLES Final Resu lt [facility] [address] [place] [address], [place] [phone] documented in this encounter Visit Diagnoses Diagnosis Essential (primary) hypertension Unspecified essential hypertension Hyperlipidemia, unspecified documented in this encounter Care Teams Group Exercise Class Instructor Relationship Specialty Start Date End Date Stephanie Salas MD [address] [place] [phone] PCP - General Hospitalist Medicine 10/10/24 documented as of this encounter
--- OUTSIDE RECORDS SUMMARY | 2025-07-13 12:18 | XMS_ITS | Clinical Summary ---
Author Organization [facility] Address [address] [place] [address] Phone Care Team Providers Care Integration Analyst Name Role Phone Stephanie Salas MD Primary Care Provider [phone] Social History Tobacco Use Types Packs/Day Years Used Date Smoking Tobacco: Never Assessed Comments Unknown Sex and Gender Information Value Date Recorded Sex Assigned at Not on file Legal Sex Female 3:39 PM EDT Gender Identity Not on file Sexual Orientation Not on file Plan of Treatment Health Maintenance Due Date Last Done Comments Diabetes: Annual Foot Exam 1955 Diabetes: Annual Retina Eye Exam 1955 Zoster Vaccines (1 of 2) 1997 Cholesterol Screening (Lipid Panel) 09/04/2024 Falls Risk Assessment 09/04/2024 Hepatitis C Screening 09/04/2024 Osteoporosis Screening (Bone Density Screening) 09/04/2024 Social Influencers of Health Screening 09/04/2024 Depression Screening 11/09/2024 Diabetes: Annual Urine Albumin-Creatinine Ratio (uACR) 11/10/2024 Diabetes: Blood Sugar Control Test (HGBA1C) 11/10/2024 COVID-19 Vaccine ( season) 2025 08/14/2023, 06/08/2022, 08/30/2021, Additional history exists Influenza Vaccine (#1) 2025 , 08/06/2022, 08/12/2021, Additional history exists Diabetes: Annual GFR (Glomerular Filtration Rate) 03/06/2026 03/06/2025, 02/27/2025, 02/20/2025, Additional history exists Hypertension/CHF/CAD Annual BMP Blood Test 03/06/2026 03/06/2025, 02/27/2025, 02/20/2025, Additional history exists DTaP,Tdap,and Td Vaccines (2 - Td or Tdap) 06/11/2033 06/11/2023 Pneumococcal Vaccine: 50+ Years Completed 04/15/2023 RSV Immunization Adult Patients Completed 09/18/2023 HIB Vaccines Aged Out No longer eligi ble based on patient's age to complete this topic HPV Vaccines Aged Out No longer eligi ble based on patient's age to complete this topic Hepatitis A Vaccines Aged Out No long er eligible based on patient's age to complete this topic Hepatitis B Vaccines Aged Out No long er eligible based on patient's age to complete this topic IPV Vaccines Aged Out No longer eligi ble based on patient's age to complete this topic MMR Vaccines Aged Out No longer eligi ble based on patient's age to complete this topic Meningococcal ACWY Vaccine Aged Out N o longer eligible based on patient's age to complete this topic Meningococcal B Vaccine Aged Out No l onger eligible based on patient's age to complete this topic RSV Immunization Patients Under 20 months Aged Out No longer eligible based on patient's age to complete this topic Varicella Vaccines Aged Out No longer eligible based on patient's age to complete this topic Procedures Procedure Name Priority Date/Time Associated Diagnosis Comments BASIC METABOLIC PANEL Routine 03/06/2025 6:28 AM EDT Type 2 diabetes mellitus without complications (CMS/HCC V24, CMS/HCC V28) Heart failure, unspecified (CMS/HCC V24, CMS/HCC V28) from Last 3 Months or Most Recently Relevant to Health Maintenance Results * (ABNORMAL) Basic metabolic panel (03/06/2025 6:28 AM EDT) Sodium 139 133 - 145 mmol/L LAB CHEMISTRY METHOD 03/06/2025 10:56 AM [facility] Potassium 3.6 3.5 - 5.5 mmol/L LAB CHEMISTRY METHOD 03/06/2025 10:56 AM [facility] Chloride 100 96 - 110 mmol/L LAB CHEMISTRY METHOD 03/06/2025 10:56 AM [facility] CO2 27 21 - 32 mmol/L LAB CHEMISTRY METHOD 03/06/2025 10:56 AM EDT [facility] Anion Gap 12(H) 3 - 11 LAB CHEMISTRY METHOD 03/06/2025 10:56 AM EDT [facility] Glucose 87 70 - 100 mg/dL LAB CHEMISTRY METHOD 03/06/2025 10:56 AM T [facility] BUN 49(H) 5 - 25 mg/dL LAB CHEMISTRY METHOD 03/06/2025 10:56 AM T [facility] Creatinine 0.80 0.50 - 1.10 mg/dL LAB CHEMISTRY METHOD 03/06/2025 10:56 AM EDT [facility] eGFR 76 >=60 mL/min/1. 73m2 LAB CHEMISTRY METHOD 03/06/2025 10:56 AM EDT [facility] Comment:Calculation based on the Chronic Kidney Disease Epidemiology Collaboration (CKD-EPI) equation refit without adjustment for race. BUN/Creatinine Ratio 61.3 LAB CHEMISTRY METHOD 03/06/2025 10:56 AM [facility] Calcium 8.6 8.5 - 10.5 mg/dL LAB CHEMISTRY METHOD 03/06/2025 10:56 AM [facility] Blood Venous blood specimen / Unknown Venipuncture / Unknown 03/06/2025 6:28 AM EDT 03/06/2025 9:37 AM EDT us Jim Dominique MD LAB BLOOD ORDERABLES Final Resul t [facility] [address] [place] [address], from Last 3 Months or Most Recently Relevant to Health Maintenance Insurance [facility] [address] [place] [address] Care Teams Integration Analyst Relationship Specialty Start Date End Date Stephanie Salas MD [address] [place] [phone] PCP - General Hospitalist Medicine 10/10/24
--- OUTSIDE RECORDS SUMMARY | 2025-07-13 12:18 | XMS_ITS | Encounter Summary ---
Author Organization [facility] Address [address] [place] [address] Care Team Providers Care Automobile Body Repairer Helper Name Role Phone Stephanie Salas MD Primary Care Provider Encounter Details Date Type Department Care Team (Late st Contact Info) Description 03/03/2025 Lab Requisition [facility] - Main Lab [address] [place] [address] Jim Dominique MD [address] [place] [address] [address] [place], [address] Other elevated white blood cell count Social History Tobacco Use Types Packs/Day Years [...] Associated Diagnosis Comments COMPLETE BLOOD COUNT Routine 03/03/2025 11:03 AM EDT Other elevated white blood cell count documented in this encounter Results * (ABNORMAL) Complete blood count (03/03/2025 11:03 AM EDT) WBC 12.1(H) 4.8 - 10.8 K/[facility] LAB HEMETOLOGY METHOD 03/03/2025 11:43 AM EDT [facility] RBC 3.00(L) 3.80 - 4.80 M/[facility] LAB HEMETOLOGY METHOD 03/03/2025 11:43 AM EDT [facility] Hemoglobin 9.5(L) 11.5 - 16.0 g/dL LAB HEMETOLOGY METHOD 03/03/2025 11:43 AM EDT [facility] Hematocrit 29.1(L) 35.0 - 47.0 % LAB HEMETOLOGY METHOD 03/03/2025 11:43 AM EDT [facility] MCV 96.7 79.0 - 98.0 FL LAB HEMETOLOGY METHOD 03/03/2025 11:43 AM EDT [facility] MCH 31.6 27.0 - 32.0 pcg LAB HEMETOLOGY METHOD 03/03/2025 11:43 AM EDT [facility] MCHC 32.6 32.0 - 37.0 g/dL LAB HEMETOLOGY METHOD 03/03/2025 11:43 AM EDT [facility] RDW 15.8(H) 11.0 - 15.0 % LAB HEMETOLOGY METHOD 03/03/2025 11:43 AM T [facility] Platelets 395 130 - 400 K/mcL LAB HEMETOLOGY METHOD 03/03/2025 11:43 AM EDT [facility] MPV 11.0 7.0 - 11.0 FL LAB HEMETOLOGY METHOD [facility]/03[facility] NRBC 0.0 <1.0 % LAB HEMETOLOGY METHOD 03/03/2025 11:43 AM [facility] NRBC Absolute 0.00 <0.10 K/mcL LAB HEMETOLOGY METHOD 03/03/2025 11:43 AM T [facility] Blood Venous blood specimen / Unknown Venipuncture / Unknown 03/03/2025 11:03 AM EDT 03/03/2025 11:31 AM EDT us Jim Dominique MD LAB BLOOD ORDERABLES Final Resul t [facility] [address] [place] [address], [place] [phone] documented in this encounter Visit Diagnoses Diagnosis Other elevated white blood cell count documented in this encounter Care Teams Automobile Body Repairer Helper Relationship Specialty Start Date End Date Stephanie Salas MD [address] [place] [address] PCP - General Hospitalist Medicine 10/10/24 documented as of this encounter
--- OUTSIDE RECORDS SUMMARY | 2025-07-13 12:18 | XMS_ITS | Patient Health Record ---
Author Organization [facility] Address [address] [facility] [address] [place] [address] Care Team Providers Care Electronic Development Technician Name Role Phone Latoya Trejo Primary Care Provid er Unavailable Imani Gaston Unavailable [phone] Dorota Fonseca Unavailable [phone] Marco Gonzalez Unavailable [phone] Allergies Allergen (clinical drug ingredient) Drug/Non Drug Allergy documented on EMR Reaction Allergy Type Onset Date Status Latex Latex Unknown Allergy Active Reason For Referral No Information Medications Medication SIG (Take, Route, Frequency, Duration) Notes Start Date End Date Status Bumetanide 1 MG 1 tablet Orally twic e a day 01/17/2025 Active Digoxin 125 MCG 1 tablet Orally Once a day 01/17/2025 Active Diclofenac Sodium 1 % apply to left hip Externally twice a day 02/01/2025 Active Apixaban 5 MG 1 tablet Orally twic e a day 01/17/2025 Active Omeprazole 20 MG 1 tablet Orally Once a day 01/18/2025 Active Acetaminophen 325 MG 2 tablets Orally every 8 hrs As needed 02/01/2025 Active Multi-Vitamin/Minerals - 1 tablet Orally once a day 01/24/2025 Active Bisacodyl 10 MG 1 suppository Rectal Once a day As needed 01/17/2025 Active Vitamin C 500 MG 1 tablet Orally Ever y other day 01/24/2025 Active Atorvastatin Calcium 40 MG 1 tablet Oral ly at bedtime 01/17/2025 Active Senna 8.6 MG 1 tablet Orally Once a day As needed 01/17/2025 Active Lisinopril 5 MG 1 tablet Orally Once a day 02/02/2025 Active Levothyroxine Sodium 100 MCG 1 tablet Orally in the morning 01/18/2025 Active Acetaminophen 500 MG 2 tablets Orally 3 times a day 02/03/2025 Active Metoprolol Tartrate 50 MG 1 tablet Orall y once a day 01/18/2025 Active metFORMIN HCl 850 MG 1 tablet Orally Onc e a day 01/17/2025 Active Problems Problem Type SNOMED Code ICD Code Onset Dates Problem Status W/U Status Risk Notes Problem Skin ulcer associated with diabetes mellitus (248313363) 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) Active confirmed Problem Atrial fibrillation (40533710) Unspecified atrial fibrillation (I48.91) Active confirmed Problem Diastolic heart failure (170575087) Unspecified diastolic (congestive) heart failure (I50.30) Active confirmed Problem Peripheral vascular disease (804429600) Peripheral vascular disease, unspecified (I73.9) Active confirmed Problem Pressure injury of sacral region of back stage III (disorder) (74440538779308) Pressure ulcer of sacral region, stage 3 (L89.153) Active confirmed Problem Pressure injury of right buttock stage II (disorder) (93588986659661) Pressure ulcer of right buttock, stage 2 (L89.312) Active confirmed Problem Pressure injury of right buttock stage III (disorder) (42383406269654) Pressure ulcer of right buttock, stage 3 (L89.313) Active confirmed Problem Pressure injury of left buttock stage II (disorder) (33525475657863) Pressure ulcer of left buttock, stage 2 (L89.322) Active confirmed Problem Pressure injury of left buttock stage IV (disorder) (29909007077621) Pressure ulcer of left buttock, 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) Active confirmed Problem Unstageable pressure injury of right heel (disorder) (27570714080731046) Pressure ulcer of right heel, unstageable (L89.610) Active confirmed Problem Pressure injury of right heel stage IV (disorder) (27636174700749) Pressure ulcer of right heel, stage 4 (L89.614) Active confirmed Problem Chronic ulcer of lower extremity (87376026) Non-pressure chronic ulcer of other part of right lower leg limited to breakdown of skin (L97.811) Active confirmed Problem Chronic ulcer of skin of lower leg (disorder) (63467253338594076) Non-pressure chronic ulcer of other part of left lower leg limited to breakdown of skin (L97.821) Active confirmed Problem Non-pressure chronic ulcer of back with unspecified severity (L98.429) Active confirmed Problem Osteomyelitis of vertebra (145807776) Osteomyelitis of vertebra, sacral and sacrococcygeal region (M46.28) Active confirmed Problem Abnormal gait (00828187) Unsteadiness on feet (R26.81) Active confirmed Problem Weakness (88285704) Weakness (R53.1) Active con firmed Problem Abrasion of abdominal wall, subsequent encounter (S30.491D) Active confirmed Problem Unspecified open wound of left wrist, initial encounter (S61.029A) Active confirmed Problem Body mass index 40+ - severely obese (678175918) Body mass index [BMI] 40.0-44.9, adult (Z68.41) Active confirmed Problem Peripheral vascular disease (067351340) Peripheral vascular disease (I73.9) Active confirmed Problem Pressure injury, stage 3, unspecified location (L89.93) 05/08/20 25 Active confirmed Problem Venous insufficiency of leg (disorder) (367303677) Venous insufficiency (I87.2) Active confirmed Problem Encounter for surgical aftercare following surgery of skin or subcutaneous tissue (Z48.817) Active confirmed Problem Gastroesophageal reflux disease (790022320) GERD (gastroesophageal reflux disease) (K21.9) Active confirmed Problem Hyperlipidemia (51548631) Hyperlipidemia (E78.5) Active confirmed Problem Obesity (342157236) Obesity (E66.9) Active conf irmed Problem Edema (90640570) Edema (R60.9) Active confirmed Problem Localized infection of skin AND/OR subcutaneous tissue (014803021) Local infection of skin and subcutaneous tissue (L08.9) Active confirmed Problem Dependence on wheelchair (913381613) Wheelchair 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) Active confirmed Problem Hypothyroidism (82296868) Hypothyroidism (E03.9) Active confirmed Problem Type 2 diabetes mellitus (00613495) Type 2 diabetes mellitus (E11.9) Active confirmed Vital Signs Heart Rate 86 /min 07/05/2025 Temperature 98.4 degrees Fahrenheit 07/05/2025 Respiratory Rate 18 /min 07/05/2025 Height-cm 152.4 cm 07/05/2025 Oximetry 99 % 07/05/2025 Blood pressure diastolic 70 mm Hg 07/05/2025 Weight-kg 78.93 kg 07/05/2025 Height 60 in 07/05/2025 Blood pressure systolic 104 mm Hg 07/05/2025 Weight 174 lbs 07/05/2025 BMI 33.98 kg/m2 07/05/2025 Encounters Encounter Location Date Provider Diagnosis [facility] [address] [address] 12/21/2024 Anzdarbya Valentinoonina Pressure ulcer of right heel, unstageable L89.610 ; Pressure ulcer of left buttock, stage 4 L89.324 ; Type 2 diabetes mellitus with other skin ulcer E11.622 ; Wheelchair dependence Z99.3 ; Obesity E66.9 and Edema R60.9 [facility] [address] [facility] [address] [place] [address] 01/10/2025 Anzhela Savonina Pressure ulcer of right [...] E66.9 ; Edema R60.9 and Weakness R53.1 [facility] [address] [place] [address] 01/31/2025 Imani Gaston Pressure ulcer of right [...] wound of left wrist, initial encounter S61.502A [facility] [address] [place] [address] 2025 Imani Gaston Pressure ulcer of right [...] ulcer of sacral region, stage 3 L89.153 [facility] [address] [address] 03/15/2025 Imani Gaston Pressure ulcer of left [...] ulcer of sacral region, stage 3 L89.153 [facility] [address] [address] 03/22/2025 Imani Gaston Pressure ulcer of left [...] Abrasion of abdominal wall, subsequent encounter S30.811D [facility] [address] [address] 03/29/2025 Imani [place] Pressure ulcer of left buttock, stage 4 [...] Abrasion of abdominal wall, subsequent encounter S30.811D [facility] [address] [address] 04/17/2025 Imani Gaston Pressure ulcer of left buttock, [...] Abrasion of abdominal wall, subsequent encounter S30.811D [facility] [place] [address] [address] 05/08/2025 Imani [place] Pressure ulcer of left buttock, stage 4 [...] Pressure injury, stage 3, unspecified location L89.93 [facility] [place] [address] [address] 05/15/2025 Imani Gaston Pressure ulcer of left buttock, [...] Pressure injury, stage 3, unspecified location L89.93 [facility] [place] [address] [address] 05/29/2025 Imani Gaston Pressure ulcer of left [...] Pressure injury, stage 3, unspecified location L89.93 [facility] [address] [address] 07/05/2025 Imani Gaston Osteomyelitis of vertebra, sacral and sacrococcygeal region M46.28 ; Encounter for surgical aftercare following surgery of skin or subcutaneous tissue Z48.817 ; Pressure ulcer of left buttock, stage 4 L89.324 ; Pressure ulcer of right heel, stage 4 L89.614 ; Local infection of skin and subcutaneous tissue L08.9 ; Type 2 diabetes mellitus with other skin ulcer E11.622 ; Wheelchair dependence Z99.3 ; Venous insufficiency I87.2 ; Peripheral vascular disease I73.9 ; Obesity E66.9 ; Edema R60.9 ; Weakness R53.1 ; Pressure ulcer of right buttock, stage 2 L89.312 and Pressure ulcer of left buttock, stage 2 L89.322 [facility] [address] [place] [address] 03/30/2025 Imani Gaston [facility] [address] [address] 12/16/2024 Marco Gonzalez [facility] [address] [place] [address] 12/19/2024 Marco Gonzalez [facility] [address] [place] [address] 12/21/2024 Marco Gonzalez [facility] [address] [place] [address] 12/23/2024 Marco Gonzalez [facility] [address] [address] 01/02/2025 Marco Gonzalez [facility] [address] [place] [address] 01/04/2025 Marco Gonzalez [facility] [address] [place] [address] 01/04/2025 Anzhela Savonina [facility] [address] [place] [address] 01/10/2025 Anzhela Savonina [facility] [address] [place] [address] 01/10/2025 Anzhela Savonina [facility] [address] [place] [address] 01/12/2025 Anzhela Savonina [facility] [address] [place] [address] 03/16/2025 Anzhela Savonina [facility] [address] [place] [address] 03/22/2025 Anzhela Savonina [facility] [address] [place] [address] 03/24/2025 Anzhela Savonina [facility] [address] [place] [address] 03/29/2025 Imani [facility] [address] [place] [address] 04/17/2025 [facility] [address] [place] [address] 04/25/2025 Imani [facility] [address] [place] [address] 04/26/2025 [facility] [address] [place] [address] 05/01/2025 [facility] [address] [place] [address] 05/11/2025 Imanidarby Georgesett Assessments Encounter Date Diagnosis (ICD Code) Assessment [...] formulating plan, education and documentation. I Dorota VALENZUELA, examined, evaluated and treated the patient. Dr. [...] with dsd. She tolerated the procedure well. Anan presents today for a follow up visit [...] left buttock, stage 4 (ICD-10 - L89.324) 07/05/2025 Osteomyelitis of vertebra, sacral and sacrococcygeal region (ICD-10 - M46.28) 07/05/2025 Encounter for surgical aftercare following surgery of skin or subcutaneous tissue (ICD-10 - Z48.817) 05/29/2025 Osteomyelitis of vertebra, sacral and sacrococcygeal region (ICD-10 - M46.28) 07/05/2025 Pressure ulcer of left buttock, stage 4 (ICD-10 - L89.324) 05/15/2025 Osteomyelitis of vertebra, sacral and sacrococcygeal [...] skin and subcutaneous tissue (ICD-10 - L08.9) 07/05/2025 Pressure ulcer of right heel, stage 4 (ICD-10 - L89.614) 05/29/2025 Pressure ulcer of right heel, stage 4 (ICD-10 - L89.614) 05/15/2025 Local infection of skin and subcutaneous tissue (ICD-10 - L08.9) 05/29/2025 Local infection of skin and subcutaneous tissue (ICD-10 - L08.9) 07/05/2025 Local infection of skin and subcutaneous tissue [...] with other skin ulcer (ICD-10 - E11.622) 07/05/2025 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) 05/29/2025 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) 05/15/2025 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) 07/05/2025 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) 05/08/2025 Venous [...] I73.9) 05/15/2025 Venous insufficiency (ICD-10 - I87.2) 07/05/2025 Venous insufficiency (ICD-10 - I87.2) 05/29/2025 Venous insufficiency (ICD-10 - I87.2) 05/29/2025 Peripheral vascular disease (ICD-10 - I73.9) 07/05/2025 Peripheral vascular disease (ICD-10 - I73.9) 05/15/2025 [...] - R60.9) 05/15/2025 Obesity (ICD-10 - E66.9) 07/05/2025 Obesity (ICD-10 - E66.9) 05/29/2025 Obesity (ICD-10 - E66.9) 05/29/2025 Edema (ICD-10 - R60.9) 07/05/2025 Edema (ICD-10 - R60.9) 05/15/2025 Edema (ICD-10 [...] - R53.1) 05/15/2025 Weakness (ICD-10 - R53.1) 07/05/2025 Weakness (ICD-10 - R53.1) 05/29/2025 Weakness (ICD-10 - R53.1) 05/29/2025 Abrasion of abdominal wall, subsequent encounter (ICD-10 - S30.811D) 07/05/2025 Pressure ulcer of right buttock, stage 2 (ICD-10 - L89.312) 05/15/2025 Abrasion of abdominal wall, subsequent encounter [...] stage 3, unspecified location (ICD-10 - L89.93) 07/05/2025 Pressure ulcer of left buttock, stage 2 (ICD-10 - L89.322) 05/29/2025 Pressure injury, stage 3, unspecified location (ICD-10 - L89.93) 01/31/2025 Unspecified open wound of left wrist, initial encounter (ICD-10 - S61.502A) 12/21/2024 Other I, Ted Hernandez MD confirm that Dorota Fonseca [facility]- understands and adheres to the guidelines of the established clinical protocols in the office. I confirm the above care provided was rendered under my general supervision as initially planned and subsequently discussed and supervised by me. 01/10/2025 Other I, Ted Hernandez MD confirm that Dorota Fonseca [facility]- understands and adheres to the guidelines of [...] plan of care. I Imani Gaston MSN, [facility]- examined, evaluated and treated the patient. Dr. Lorena Hernandez was available for any question or concerns that I may have had. I spent 75 minutes of direct and indirect care of this patient reviewing records, gathering H&P, evaluation and treatment, formulating plan, education and documentation. I, Ted Hernandez MD confirm that Imani Gaston MSN, [facility], understands and adheres to the guidelines of [...] buttock to r/o OM as recommended by [facility]. Turn, reposition & offload Q2 hours & PRN to aid in wound healing. Encourage appropriate dietary supplementation to aid in wound healing. Patient and nursing agree w plan of care. I Imani Gaston MSN, [facility]- examined, evaluated and treated the patient. Dr. [...] has completely filled in. the X-ray at [facility] was negative for OM, but as [...] to r/o OM as also recommended by [facility]. She is hesitant to come for [...] documentation of findings I Imani Gaston MSN, [facility] examined, evaluated and treated the patient. Dr. [...] to the surrounding skin. The X-ray at [facility] was negative for OM, but as [...] to r/o OM as also recommended by [facility] and the surgical team there. She [...] Ted Hernandez MD confirm that Imani GUADARRAMA, AGPCNP-BC, understands and adheres to the guidelines [...] the bone infection which would also require fci antibiotics and likely a rehabilitation stay thereafter. [...] documentation of findings I Imani Gaston MSN, [facility]- examined, evaluated and treated the patient. Dr. Lorena Hernandez was available for any question or concerns that I may have had. I, Ted Hernandez MD confirm that Imani Gaston MSN, [facility]-, understands and adheres to the guidelines of [...] documentation of findings I Imani Gaston MSN, [facility]- examined, evaluated and treated the patient. Dr. Lorena Hernandez was available for any question or concerns that I may have had. I, Tde Hernandez MD confirm that Imani Gaston MSN, [facility]-, understands and adheres to the guidelines of [...] documentation of findings I Imani Gaston MSN, [facility]- examined, evaluated and treated the patient. Dr. Lorena Hernandez was available for any question or concerns that I may have had. I, Ted Hernandez MD confirm that Imani GUADARRAMA, [place], understands and adheres to the guidelines of [...] documentation of findings I Imani Gaston MSN, [facility]- examined, evaluated and treated the patient. Dr. Lorena Hernandez was available for any question or concerns that I may have had. I, Ted Hernandez MD confirm that Imani Gaston MSN, [facility]-, understands and adheres to the guidelines of the established clinical protocols in the office. I confirm the above care provided was rendered under my general supervision as initially planned and subsequently discussed and supervised by me. 07/05/2025 Other On exam, alert & cooperative with care. She ambulated from the wheelchair to the chair. Her friend is present for exam and provides her transportation. Her dressings were removed and wounds examined. Her abdominal wound is stapled and approximated; she saw the surgeon yesterday and has a follow up with him tomorrow; this wound was examined per her request and dressing changed. R heel wound has an adherent callous, flat and not lifting without fluctuance, pain or induration. Skin prep was applied L superior buttock wound appears fragile and epithelialized. I do still feel fluctuance and ? open air to the surrounding skin but she reports no issues with this wound and there is no concern or mention of it in her hospital records that I have for review. Her bilateral buttocks have partial thickness kissing ulcers, appear to be superficial and consistent with stage 2 pressure ulcers. I cleaned the wounds with wound cleanser and applied zinc bilateral buttock and L superior buttock wound. There was no indication for sharp excisional debridement to any wound site today. I recommended VNA perform dressing changes daily with SP to her heels, zinc to buttocks, and follow surgical orders to abdominal wounds. ID and surgical team to continue to follow, Dr. Najera ID and Dr. Brikn surgeon. We discussed importance of protein supplementation and offloading to aid in wound healing. Turn, reposition & offload Q2 hours & PRN to aid in wound healing. She prefers to sleep in her recliner where she reports she has a cushion, unclear what type but says it has air. Encourage appropriate dietary supplementation to aid in wound healing; discussed [employer] and ensure protein drinks. She will return for a follow up appt in one week, calling sooner with any questions or concerns. Patient, friend, and nursing agree w plan of care. I discussed sxs infectious processes and when to go to ED. Patient and Robles verbalize understanding. I spent a total of 62 minutes [...] Ted Hernandez MD confirm that Imani GUADARRAMA, AGPCNP-BC, understands and adheres to the guidelines of the established clinical protocols in the office. I confirm the above care provided was rendered under my general supervision as initially planned and subsequently discussed and supervised by me. Plan Of Treatment Next Appt Details Provider Name:Imani Gaston , 07/19/2025 01:00:00 PM, [address], [place], [address], Insurance Providers Payer Name Payer Address Payer Phone Subscriber Number Group Number Insured Name Patient Relationship to Insured Coverage Start Date Coverage End Date [facility] [address] [place], [place] [id number] [place] Self - patient is [...]
--- OUTSIDE RECORDS SUMMARY | 2025-07-13 12:18 | XMS_ITS | Encounter Summary ---
Author Organization [facility] Address [address] [place] [address] Care Team Providers Care Stable Helper Name Role Phone Stephanie Salas MD Primary Care Provider Encounter Details Date Type Department Care Team (Late st Contact Info) Description 10/20/2024 Lab Requisition [facility] Lab 299 [facility] [place] [address] Stephanie Salas MD [address] [place] [address] Other disorders of electrolyte and fluid balance, not elsewhere classified; Anemia, unspecified Social History Tobacco Use Types Packs/Day [...] Associated Diagnosis Comments COMPLETE BLOOD COUNT Routine 10/20/2024 6:40 AM EST Anemia, unspecified BASIC METABOLIC PANEL Routine 10/20/2024 6:40 AM EST Other disorders of electrolyte and fluid balance, not elsewhere classified documented in this encounter Results * (ABNORMAL) Basic metabolic panel (10/20/2024 6:40 AM EST) Sodium 140 133 - 145 mmol/L LAB CHEMISTRY METHOD 10/20/2024 11:53 AM EST [facility] Potassium 3.4(L) 3.5 - 5.5 mmol/L LAB CHEMISTRY METHOD 10/20/2024 11:53 AM EST [facility] Chloride 92(L) 96 - 110 mmol/L LAB CHEMISTRY METHOD 10/20/2024 11:53 AM [facility] LAB CO2 38(H) 21 - 32 mmol/L LAB CHEMISTRY METHOD 10/20/2024 11:53 AM [facility] LAB Anion Gap 10 3 - 11 LAB CHEMISTRY METHOD 10/20/2024 11:53 AM [facility] LAB Glucose 62(L) 70 - 100 mg/dL LAB CHEMISTRY METHOD 10/20/2024 11:53 AM [facility] BUN 17 5 - 25 mg/dL LAB CHEMISTRY METHOD 10/20/2024 11:53 AM [facility] LAB Creatinine 0.76 0.50 - 1.10 mg/dL LAB CHEMISTRY METHOD 10/20/2024 11:53 AM [facility] LAB eGFR 81 >=60 mL/min/1. 73m2 LAB CHEMISTRY METHOD 10/20/2024 11:53 AM [facility] LAB Comment:Calculation based on the Chronic Kidney Disease Epidemiology Collaboration (CKD-EPI) equation refit without adjustment for race. BUN/Creatinine Ratio 22.4 LAB CHEMISTRY METHOD 10/20/2024 11:53 AM [facility] LAB Calcium 8.1(L) 8.5 - 10.5 mg/dL LAB CHEMISTRY METHOD 10/20/2024 11:53 AM [facility] LAB Blood Venous blood specimen / Unknown Venipuncture / Unknown 10/20/2024 6:40 AM EST 10/20/2024 10:07 AM EST us Stephanie Salas MD LAB BLOOD ORDERABLES Final Resu lt [facility] LAB [address] [place] [address], * (ABNORMAL) Complete blood count (10/20/2024 6:40 AM EST) WBC 8.3 4.8 - 10.8 K/mcL LAB HEMETOLOGY METHOD 10/20/2024 10:58 AM [facility] LAB RBC 4.20 3.80 - 4.80 M/mcL LAB HEMETOLOGY METHOD 10/20/2024 10:58 AM [facility] LAB Hemoglobin 12.3 11.5 - 16.0 g/dL LAB HEMETOLOGY METHOD 10/20/2024 10:58 AM [facility] LAB Hematocrit 39.3 35.0 - 47.0 % LAB HEMETOLOGY METHOD 10/20/2024 10:58 AM [facility] LAB MCV 92.9 79.0 - 98.0 FL LAB HEMETOLOGY METHOD 10/20/2024 10:58 AM [facility] LAB MCH 29.1 27.0 - 32.0 pcg LAB HEMETOLOGY METHOD 10/20/2024 10:58 AM [facility] LAB MCHC 31.3(L) 32.0 - 37.0 g/dL LAB HEMETOLOGY METHOD 10/20/2024 10:58 AM [facility] LAB RDW 16.4(H) 11.0 - 15.0 % LAB HEMETOLOGY METHOD 10/20/2024 10:58 AM [facility] LAB Platelets 440(H) 130 - 400 K/mcL LAB HEMETOLOGY METHOD 10/20/2024 10:58 AM [facility] LAB MPV 10.7 7.0 - 11.0 FL LAB HEMETOLOGY METHOD 10/20/2024 10:58 AM [facility] LAB NRBC 0.0 <1.0 % LAB HEMETOLOGY METHOD 10/20/2024 10:58 AM [facility] LAB NRBC Absolute 0.00 <0.10 K/mcL LAB HEMETOLOGY METHOD 10/20/2024 10:58 AM [facility] LAB Blood Venous blood specimen / Unknown Venipuncture / Unknown 10/20/2024 6:40 AM EST 10/20/2024 10:07 AM EST us Stephanie Salas MD LAB BLOOD ORDERABLES Final Resu lt DAILY [facility] [address] [place] [address], documented in this encounter Visit Diagnoses Diagnosis Other disorders of electrolyte and fluid balance, not elsewhere classified Anemia, unspecified documented in this encounter Care Teams Stable Helper Relationship Specialty Start Date End Date Stephanie Salas MD [address] [place] [address] PCP - General Hospitalist Medicine 10/10/24 documented as of this encounter
--- OUTSIDE RECORDS SUMMARY | 2025-07-13 12:18 | XMS_ITS | Encounter Summary ---
Author Organization [facility] Address [address] [place] [address] Care Team Providers Care Tank Cooper Name Role Phone Stephanie Salas MD Primary Care Provider Encounter Details Date Type Department Care Team (Late st Contact Info) Description 03/10/2025 Lab Requisition [facility] - Main Lab 299 [facility] [place] [address] Jim Dominique MD [address] [place] [address], [phone] Type 2 diabetes mellitus without complications (CMS/HCC V24, CMS/HCC V28); Heart failure, unspecified (CMS/HCC V24, CMS/HCC V28); Unspecified atrial fibrillation (CMS/HCC V24, CMS/HCC V28); Hyperlipidemia, unspecified Social History Tobacco Use Types [...] documented as of this encounter Visit Diagnoses Diagnosis Type 2 diabetes mellitus without complications (CMS/HCC V24, CMS/HCC V28) Heart failure, unspecified (CMS/HCC V24, CMS/HCC V28) Heart failure, unspecified Unspecified atrial fibrillation (CMS/HCC V24, CMS/HCC V28) Hyperlipidemia, unspecified documented in this encounter Care Teams Tank Cooper Relationship Specialty Start Date End Date Stephanie Salas MD [address] [place] [address] PCP - General Hospitalist Medicine 10/10/24 documented as of this encounter
--- OUTSIDE RECORDS SUMMARY | 2025-07-13 12:18 | XMS_ITS | Encounter Summary ---
Author Organization [employer] Address [address] [place] [address] Care Team Providers Care Resaw Tailer Name Role Phone Stephanie Salas MD Primary Care Provider [phone] Encounter Details Date Type Department Care Team (Latest Contact Info) Description 11/10/2024 Lab Requisition [facility] - Main Lab 299 [facility] [place] [address] Stephanie Salas MD [address] [place] [address] Respiratory failure, unspecified, unspecified whether with hypoxia or hypercapnia (CMS/HCC V24, CMS/HCC V28); Type 2 diabetes mellitus without complications (CMS/HCC V24, CMS/HCC V28); Unspecified atrial fibrillation (CMS/HCC V24, CMS/HCC V28); Essential (primary) hypertension [...] Associated Diagnosis Comments BASIC METABOLIC PANEL Routine 11/10/2024 8:19 AM EST Respiratory failure, unspecified, unspecified whether with hypoxia or hypercapnia (CMS/HCC) Type 2 diabetes mellitus without complications (CMS/HCC) Unspecified atrial fibrillation (CMS/HCC) Essential (primary) hypertension documented in this encounter Results * (ABNORMAL) Basic metabolic panel (11/10/2024 8:19 AM EST) Sodium 131(L) 133 - 145 mmol/L LAB CHEMISTRY METHOD 11/10/2024 12:06 PM EST [facility] Potassium 4.2 3.5 - 5.5 mmol/L LAB CHEMISTRY METHOD 11/10/2024 12:06 PM [facility] LAB Chloride 88(L) 96 - 110 mmol/L LAB CHEMISTRY METHOD 11/10/2024 12:06 PM [facility] LAB CO2 34(H) 21 - 32 mmol/L LAB CHEMISTRY METHOD 11/10/2024 12:06 PM [facility] Anion Gap 9 3 - 11 LAB CHEMISTRY METHOD 11/10/2024 12:06 PM [facility] LAB Glucose 101(H) 70 - 100 mg/dL LAB CHEMISTRY METHOD 11/10/2024 12:06 PM [facility] LAB BUN 45(H) 5 - 25 mg/dL LAB CHEMISTRY METHOD 11/10/2024 12:06 PM [facility] LAB Comment:Results verified by repeat testing Creatinine 1.63(H) 0.50 - 1.10 mg/dL LAB CHEMISTRY METHOD 11/10/2024 12:06 PM [facility] LAB Comment:Results verified by repeat testing eGFR 32(L) >=60 mL/min/1. 73m2 LAB CHEMISTRY METHOD 11/10/2024 12:06 PM [facility] LAB Comment:Calculation based on the Chronic Kidney Disease Epidemiology Collaboration (CKD-EPI) equation refit without adjustment for race. BUN/Creatinine Ratio 27.6 LAB CHEMISTRY METHOD 11/10/2024 12:06 PM [facility] LAB Calcium 8.5 8.5 - 10.5 mg/dL LAB CHEMISTRY METHOD 11/10/2024 12:06 PM [facility] LAB Blood Venous blood specimen / Unknown Venipuncture / Unknown 11/10/2024 8:19 AM EST 11/10/2024 10:09 AM EST us Stephanie Salas MD LAB BLOOD ORDERABLES Final Resu lt [facility] LAB [address] [place] [address], documented in this encounter Visit Diagnoses Diagnosis Respiratory failure, unspecified, unspecified whether with hypoxia or hypercapnia ([facility] V24, [facility] V28) Type 2 diabetes mellitus without complications ([facility] V24, [facility] V28) Unspecified atrial fibrillation ([facility] V24, [facility] V28) Essential (primary) hypertension Unspecified essential hypertension documented in this encounter Care Teams Resaw Tailer Relationship Specialty Start Date End Date Stephanie Salas MD [address] [place] [address] PCP - General Hospitalist Medicine 10/10/24 documented as of this encounter
--- OUTSIDE RECORDS SUMMARY | 2025-07-13 12:18 | XMS_ITS | Clinical Summary ---
Author Organization [facility] Address [address] [place] [address] Care Team Providers Care Anthropologist Name Role Phone Unavailable Primary Care Provider [...]
--- OUTSIDE RECORDS SUMMARY | 2025-07-13 12:18 | XMS_ITS | Encounter Summary ---
Author Organization [facility] Address [address] [place] [address] Care Team Providers Care Director Of District Office Name Role Phone Stephanie Salas MD Primary Care Provider Encounter Details Date Type Department Care Team (Late st Contact Info) Description 03/03/2025 Lab Requisition [facility] - Main Lab 299 [facility] [place] [address] Jim Dominique MD [address] [place] [address] [address] [place], [address] Type 2 diabetes mellitus without complications [...] Associated Diagnosis Comments COMPLETE BLOOD COUNT Routine 03/06/2025 6:28 AM EDT Type 2 diabetes mellitus without complications (CMS/HCC V24, CMS/HCC V28) Heart failure, unspecified (CMS/HCC V24, CMS/HCC V28) BASIC METABOLIC PANEL Routine 03/06/2025 6:28 AM EDT Type 2 diabetes mellitus without complications (CMS/HCC V24, CMS/HCC V28) Heart failure, unspecified (CMS/HCC V24, CMS/HCC V28) documented in this encounter Results * (ABNORMAL) Basic metabolic panel (03/06/2025 6:28 AM EDT) Sodium 139 133 - 145 mmol/L LAB CHEMISTRY METHOD 03/06/2025 10:56 AM [facility] Potassium 3.6 3.5 - 5.5 mmol/L LAB CHEMISTRY METHOD 03/06/2025 10:56 AM [facility] Chloride 100 96 - 110 mmol/L LAB CHEMISTRY METHOD 03/06/2025 10:56 AM [facility] CO2 27 21 - 32 mmol/L LAB CHEMISTRY METHOD 03/06/2025 10:56 AM [facility] Anion Gap 12(H) 3 - 11 LAB CHEMISTRY METHOD 03/06/2025 10:56 AM [facility] Glucose 87 70 - 100 mg/dL LAB CHEMISTRY METHOD 03/06/2025 10:56 AM [facility] BUN 49(H) 5 - 25 mg/dL LAB CHEMISTRY METHOD 03/06/2025 10:56 AM [facility] LAB Creatinine 0.80 0.50 - 1.10 mg/dL LAB CHEMISTRY METHOD 03/06/2025 10:56 AM [facility] LAB eGFR 76 >=60 mL/min/1. 73m2 LAB CHEMISTRY METHOD 03/06/2025 10:56 AM [facility] LAB Comment:Calculation based on the Chronic Kidney Disease Epidemiology Collaboration (CKD-EPI) equation refit without adjustment for race. BUN/Creatinine Ratio 61.3 LAB CHEMISTRY METHOD 03/06/2025 10:56 AM [facility] LAB Calcium 8.6 8.5 - 10.5 mg/dL LAB CHEMISTRY METHOD 03/06/2025 10:56 AM [facility] LAB Blood Venous blood specimen / Unknown Venipuncture / Unknown 03/06/2025 6:28 AM EDT 03/06/2025 9:37 AM EDT us Jim Dominique MD LAB BLOOD ORDERABLES Final Resul t [facility] LAB [address] [place] [address], * (ABNORMAL) Complete blood count (03/06/2025 6:28 AM EDT) WBC 10.0 4.8 - 10.8 K/mcL LAB HEMETOLOGY METHOD 03/06/2025 9:58 AM EDT [facility] LAB RBC 3.30(L) 3.80 - 4.80 M/mcL LAB HEMETOLOGY METHOD 03/06/2025 9:58 AM EDT [facility] LAB Hemoglobin 10.1(L) 11.5 - 16.0 g/dL LAB HEMETOLOGY METHOD 03/06/2025 9:58 AM EDT [facility] LAB Hematocrit 32.1(L) 35.0 - 47.0 % LAB HEMETOLOGY METHOD 03/06/2025 9:58 AM EDT [facility] LAB MCV 97.6 79.0 - 98.0 FL LAB HEMETOLOGY METHOD 03/06/2025 9:58 AM EDT [facility] LAB MCH 30.7 27.0 - 32.0 pcg LAB HEMETOLOGY METHOD 03/06/2025 9:58 AM EDT [facility] LAB MCHC 31.5(L) 32.0 - 37.0 g/dL LAB HEMETOLOGY METHOD 03/06/2025 9:58 AM EDT [facility] LAB RDW 15.5(H) 11.0 - 15.0 % LAB HEMETOLOGY METHOD 03/06/2025 9:58 AM EDT [facility] LAB Platelets 382 130 - 400 K/mcL LAB HEMETOLOGY METHOD 03/06/2025 9:58 AM EDT [facility] LAB MPV 11.4(H) 7.0 - 11.0 FL LAB HEMETOLOGY METHOD 03/06/2025 9:58 AM EDT [facility] LAB NRBC 0.0 <1.0 % LAB HEMETOLOGY METHOD 03/06/2025 9:58 AM EDT [facility] LAB NRBC Absolute 0.00 <0.10 K/mcL LAB HEMETOLOGY METHOD 03/06/2025 9:58 AM EDT [facility] LAB Blood Venous blood specimen / Unknown Venipuncture / Unknown 03/06/2025 6:28 AM EDT 03/06/2025 9:37 AM EDT us Jim Dominique MD LAB BLOOD ORDERABLES Final Resul t [facility] LAB [address] [place] [address], [place] [phone] documented in this encounter Visit Diagnoses Diagnosis Type 2 diabetes mellitus without complications (CMS/HCC V24, CMS/HCC V28) Heart failure, unspecified (CMS/HCC V24, CMS/HCC V28) Heart failure, unspecified documented in this encounter Care Teams Director Of District Office Relationship Specialty Start Date End Date Stephanie Salas MD [address] [place] [address] PCP - General Hospitalist Medicine 10/10/24 documented as of this encounter
--- OUTSIDE RECORDS SUMMARY | 2025-07-13 12:18 | XMS_ITS | Encounter Summary ---
Author Organization [facility] Address [address] [place] [address] Care Team Providers Care Rivet Sticker Name Role Phone Stephanie Salas MD Primary Care Provider [phone] Encounter Details Date Type Department Care Team (Late st Contact Info) Description 10/25/2024 Lab Requisition [facility] Lab 299 [facility] [place] [address] Stephanie Salas MD [address] [place] [address] Weakness; Essential (primary) hypertension Social History Tobacco Use [...] Associated Diagnosis Comments BASIC METABOLIC PANEL Routine 10/25/2024 7:26 AM EST Weakness Essential (primary) hypertension documented in this encounter Results * (ABNORMAL) Basic metabolic panel (10/25/2024 7:26 AM EST) Sodium 136 133 - 145 mmol/L LAB CHEMISTRY METHOD 10/25/2024 1:55 PM EST [facility] LAB Potassium 3.7 3.5 - 5.5 mmol/L LAB CHEMISTRY METHOD 10/25/2024 1:55 PM EST [facility] LAB Chloride 92(L) 96 - 110 mmol/L LAB CHEMISTRY METHOD 10/25/2024 1:55 PM EST [facility] LAB CO2 33(H) 21 - 32 mmol/L LAB CHEMISTRY METHOD 10/25/2024 1:[address] [facility] Anion Gap 11 3 - 11 LAB CHEMISTRY METHOD 10/25/2024 1:[address] [facility] LAB Glucose 66(L) 70 - 100 mg/dL LAB CHEMISTRY METHOD 10/25/2024 1:[address] [facility] BUN 16 5 - 25 mg/dL LAB CHEMISTRY METHOD 10/25/2024 1:[address] [facility] LAB Creatinine 0.67 0.50 - 1.10 mg/dL LAB CHEMISTRY METHOD 10/25/2024 1:[address] [facility] LAB eGFR 90 >=60 mL/min/1. 73m2 LAB CHEMISTRY METHOD 10/25/2024 1:[address] [facility] LAB Comment:Calculation based on the Chronic Kidney Disease Epidemiology Collaboration (CKD-EPI) equation refit without adjustment for race. BUN/Creatinine Ratio 23.9 LAB CHEMISTRY METHOD 10/25/2024 1:[address] [facility] LAB Calcium 8.3(L) 8.5 - 10.5 mg/dL LAB CHEMISTRY METHOD 10/25/2024 1:[address] [facility] LAB Blood Venous blood specimen / Unknown Venipuncture / Unknown 10/25/2024 7:26 AM EST 10/25/2024 10:59 AM EST us Stephanie Salas MD LAB BLOOD ORDERABLES Final Resu lt [facility] LAB [address] [place] [address], documented in this encounter Visit Diagnoses Diagnosis Weakness Other malaise and fatigue Essential (primary) hypertension Unspecified essential hypertension documented in this encounter Care Teams Rivet Sticker Relationship Specialty Start Date End Date Stephanie Salas MD [address] [place] [address] PCP - General Hospitalist Medicine 10/10/24 documented as of this encounter
--- OUTSIDE RECORDS SUMMARY | 2025-07-13 12:18 | XMS_ITS | Clinical Summary ---
Author Organization [facility] Address [address] [place] [address] Care Team Providers Care Contour Sander Name Role Phone Unavailable Primary Care Provider Unavailabl e Social History Tobacco Use Types Packs/Day Years Used Date Smoking Tobacco: Never Assessed Sex and Gender Information Value Date Recorded Sex Assigned at Not on file Gender Identity Not on file Sexual Orientation Not on file Plan of Treatment Not on file
--- OUTSIDE RECORDS SUMMARY | 2025-07-13 12:18 | XMS_ITS | Encounter Summary ---
Author Organization [facility] Address [address] [place] [address] Care Team Providers Care Sales Planning Manager Name Role Phone Stephanie Salas MD Primary Care Provider [phone] Encounter Details Date Type Department Care Team (Late st Contact Info) Description 10/10/[address] [facility] - Main Lab 299 [facility] [place] [address] Stephanie Salas MD [address] [place] [address] Essential (primary) hypertension Social History Tobacco Use [...] Associated Diagnosis Comments COMPLETE BLOOD COUNT Routine 10/10/2024 7:46 AM EST Essential (primary) hypertension BASIC METABOLIC PANEL Routine 10/10/2024 7:46 AM EST Essential (primary) hypertension documented in this encounter Results * (ABNORMAL) Basic metabolic panel (10/10/2024 7:46 AM EST) Sodium 141 133 - 145 mmol/L LAB CHEMISTRY METHOD 10/10/2024 12:15 PM EST [facility] Potassium 4.1 3.5 - 5.5 mmol/L LAB CHEMISTRY METHOD 10/10/2024 12:15 PM EST [facility] LAB Chloride 97 96 - 110 mmol/L LAB CHEMISTRY METHOD 10/10/2024 12:15 PM EST [facility] CO2 39(H) 21 - 32 mmol/L LAB CHEMISTRY METHOD 10/10/2024 12:15 PM [facility] LAB Anion Gap 5 3 - 11 LAB CHEMISTRY METHOD 10/10/2024 12:15 PM [facility] LAB Glucose 75 70 - 100 mg/dL LAB CHEMISTRY METHOD 10/10/2024 12:15 PM [facility] LAB BUN 17 5 - 25 mg/dL LAB CHEMISTRY METHOD 10/10/2024 12:15 PM [facility] LAB Creatinine 0.75 0.50 - 1.10 mg/dL LAB CHEMISTRY METHOD 10/10/2024 12:15 PM [facility] LAB eGFR 82 >=60 mL/min/1. 73m2 LAB CHEMISTRY METHOD 10/10/2024 12:15 PM [facility] LAB Comment:Calculation based on the Chronic Kidney Disease Epidemiology Collaboration (CKD-EPI) equation refit without adjustment for race. BUN/Creatinine Ratio 22.7 LAB CHEMISTRY METHOD 10/10/2024 12:15 PM [facility] LAB Calcium 7.8(L) 8.5 - 10.5 mg/dL LAB CHEMISTRY METHOD 10/10/2024 12:15 PM [facility] LAB Blood Venous blood specimen / Unknown Venipuncture / Unknown 10/10/2024 7:46 AM EST 10/10/2024 10:33 AM EST us Stephanie Salas MD LAB BLOOD ORDERABLES Final Resu lt [facility] LAB [address] [place] [address], * (ABNORMAL) Complete blood count (10/10/2024 7:46 AM EST) WBC 10.5 4.8 - 10.8 K/mcL LAB HEMETOLOGY METHOD 10/10/2024 11:17 AM EST [facility] RBC 3.80 3.80 - 4.80 M/mcL LAB HEMETOLOGY METHOD 10/10/2024 11:17 AM [facility] LAB Hemoglobin 11.3(L) 11.5 - 16.0 g/dL LAB HEMETOLOGY METHOD 10/10/2024 11:17 AM [facility] LAB Hematocrit 36.7 35.0 - 47.0 % LAB HEMETOLOGY METHOD 10/10/2024 11:17 AM [facility] LAB MCV 96.1 79.0 - 98.0 FL LAB HEMETOLOGY METHOD 10/10/2024 11:17 AM [facility] LAB MCH 29.6 27.0 - 32.0 pcg LAB HEMETOLOGY METHOD 10/10/2024 11:17 AM [facility] LAB MCHC 30.8(L) 32.0 - 37.0 g/dL LAB HEMETOLOGY METHOD 10/10/2024 11:17 AM [facility] LAB RDW 17.2(H) 11.0 - 15.0 % LAB HEMETOLOGY METHOD 10/10/2024 11:17 AM [facility] LAB Platelets 280 130 - 400 K/mcL LAB HEMETOLOGY METHOD 10/10/2024 11:17 AM [facility] LAB MPV 11.1(H) 7.0 - 11.0 FL LAB HEMETOLOGY METHOD 10/10/2024 11:17 AM [facility] LAB NRBC 0.0 <1.0 % LAB HEMETOLOGY METHOD 10/10/2024 11:17 AM [facility] LAB NRBC Absolute 0.00 <0.10 K/mcL LAB HEMETOLOGY METHOD 10/10/2024 11:17 AM [facility] LAB Blood Venous blood specimen / Unknown Venipuncture / Unknown 10/10/2024 7:46 AM EST 10/10/2024 10:33 AM EST us Stephanie Salas MD LAB BLOOD ORDERABLES Final Resu lt [facility] LAB [address] [place] [address], documented in this encounter Visit Diagnoses Diagnosis Essential (primary) hypertension Unspecified essential hypertension documented in this encounter Care Teams Sales Planning Manager Relationship Specialty Start Date End Date Stephanie Salas MD [address] [place] [address] PCP - General Hospitalist Medicine 10/10/24 documented as of this encounter
== END 2025-07-13 11:14 | disposition home or self-care (01) ==
LOC: HO.HMCFM 10:43
PROVIDERS: PCP Family Medicine; Visit Provider Family Medicine
DX: E11.9 Type 2 diabetes mellitus without complications (principal); L89.301 Pressure ulcer of unspecified buttock, stage 1; T81.49XA Infection following a procedure, other surgical site, initial encounter

== ENCOUNTER 2025-10-16 15:01 | Outpatient (AMB) | payer OTHER, SELFPAY ==
--- OUTSIDE RECORDS SUMMARY | 2025-06-12 04:30 | XMS_ITS ---
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 Name Role Phone Anitha NAGEL-Latoya Pereyra Primary Care Provid er Unavailable Imani Gaston Unavailable [phone] Encounters Encounter Location Date Provider Diagnosis [facility] [address] [place] [address] 06/12/2025 Imani Gaston Plan Of Treatment Next Appt Details Provider Name:Rochelle Keara guzman, 10/17/2025 02:00:00 PM, [address], [address], [place], [address], Progress Notes * Anna MARIDOB:1945 (80 yo F)Acc No.[id number]:06/12/2025 Follow-Up Visit Patient: Anna GREGORY Provider: Charles Gaston NP :1945 A ge:80 Y S ex:Female Date:06/12/2025 Address:[address] [id number] Pcp:Halle Alanis Subjective: * Chief Complaints: * * Medical History: Objective: * Vitals: Assessment: Plan: * Treatment: * Billing Information: * Visit Code: * Procedure Codes: * Electronic signature of Keyanna Gaston NP on 10/17/2025 at 12:28 AM EST Sign off status: Pending * Provider: Charles Gaston NP Date: 0 06/12/2025 Generated for Printi ng/Faxing/eTransmitting on: 1 12/18/2024 12:28 AM EST
--- OUTSIDE RECORDS SUMMARY | 2025-06-14 04:00 | XMS_ITS ---
Author Organization [facility] Address [address] [place] [address] Care Team Providers Care Ground Crewman Name Role Phone Anitha NAGEL-Latoya Pereyra Primary Care Provid er Unavailable Imani Gaston Unavailable [phone] REASON FOR VISIT Follow up wound care Encounters Encounter Location Date Provider Diagnosis [facility] [address] [place] [address] 06/14/2025 Imani Gaston Plan Of Treatment Next Appt Details Provider Name:Rochelle Keara guzman, 10/17/2025 02:00:00 PM, [address], [place], [address], Progress Notes * Anna MARIDOB:1945 (80 yo F)Acc No.[id number]:06/14/2025 Follow-Up Visit Patient: Anna GREGORY Provider: Charles Gaston NP :1945 A ge:80 Y S ex:Female Date:06/14/2025 [address] [id number] Pcp:Halle Alanis Subjective: * Chief Complaints: * 1 . Follow up wound care. * Medical History: Objective: * Vitals: Assessment: Plan: * Treatment: * Billing Information: * Visit Code: * Procedure Codes: * Electronic signature of Keyanna Gaston NP on 10/17/2025 at 12:28 AM EST Sign off status: Pending * Provider: Charles Gaston NP Date: 0 06/14/2025 Generated for Nora so/Rasta/eTransmitting on: 1 12/18/2024 12:28 AM EST
--- OUTSIDE RECORDS SUMMARY | 2025-07-12 09:30 | XMS_ITS ---
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 Name Role Phone Anitha NAGEL-Latoya Pereyra Primary Care Provid er Unavailable Imani Gaston Unavailable [phone] Encounters Encounter Location Date Provider Diagnosis [facility] [address] [place] [address] 07/12/2025 Imani Gaston Plan Of Treatment Next Appt Details Provider Name:Rochelle Keara guzman, 10/17/2025 02:00:00 PM, [address], [place], [address], Progress Notes * Anna MARIDOB:1945 (80 yo F)Acc No.[id number]:07/12/2025 Follow-Up Visit Patient: Anna GREGORY Provider: Charles Gaston NP :1945 A ge:80 Y S ex:Female Date:07/12/2025 Address:[address] [id number] Pcp:Halle Alanis Subjective: * Chief Complaints: * * Medical History: Objective: * Vitals: Assessment: Plan: * Treatment: * Billing Information: * Visit Code: * Procedure Codes: * Electronic signature of Keyanna Gaston NP on 10/17/2025 at 12:29 AM EST Sign off status: Pending * Provider: Charles Gaston NP Date: 0 07/12/2025 Generated for Printi ng/Faxing/eTransmitting on: 1 12/18/2024 12:29 AM EST
--- OUTSIDE RECORDS SUMMARY | 2025-08-16 09:00 | XMS_ITS ---
Author Organization [facility] Address [address] [place] [address] Care Team Providers Care Direct Customer Service Representative Name Role Phone Anitha ZARATEP-Roddy, Latoya Primary Care Provid er Unavailable Imani Gaston Unavailable [phone] Dorota Fonseca Unavailable [phone] Encounters Encounter Location Date Provider Diagnosis [facility] [address] [place] [address] 08/16/2025 Dorota Fonseca Plan Of Treatment Next Appt Details Provider Name:Rochelle guzman, 10/17/2025 02:00:00 PM, [address], [place], [address], Progress Notes * Anna MARIDOB:1945 (80 yo F)Acc No.[id number]:08/16/2025 Follow-Up Visit Patient: Anna GREGORY Provider: Angy Fonseca NP :1945 A ge:80 Y S ex:Female Date:08/16/2025 Address:[address] [id number] Pcp:Halle Alanis BREAD PAN GREASER-C Subjective: * Chief Complaints: * * Medical History: Objective: * Vitals: Assessment: Plan: * Treatment: * Billing Information: * Visit Code: * Procedure Codes: * Electronic signature of Zara Fonseca NP on 10/17/2025 at 12:29 AM EST Sign off status: Pending * Provider: Angy Fonseca NP Date: 1 Generated for Nora so/Rasta/Ora on: 1 12/18/2024 12:29 AM EST
--- NOTE | 2025-10-16 15:28 | A.OFFPC_ITS ---
Vital Signs 10/16/25 15:34 Height 5 ft BMI Reason not done Patient refused/unable BP 99/66 Blood Pressure Location Rt brachial Position Sitting Respiration 12 Pulse 72 Pulse Source Pulse Oximeter Temp 97.2 F Temp Source Oral Pulse Oximetry (%) 96 Oxygen Delivery Method Room Air Intake Visit Reasons: D/C from [facility] on 10/02 see notes Intake Note: DC Follow up from [facility]. Patient needs refill from the meds that she was on rehab. Patient is also wondering if shencan get cleared for cataract surgery. Peanut Separator Required: No Allergies latex Allergy (Intermediate, Verified 10/16/25 15:29) hives oxycodone Allergy (Intermediate, Verified 10/16/25 15:29) Fever Medication List - Last Reconciled 10/16/25 by David Cabrales MD acetaminophen 975 mg PO Q6H apixaban (Eliquis) 5 mg PO BID 90 days atorvastatin 40 mg PO DAILY blood sugar diagnostic (FreeStyle Lite Strips) DX: E11.9, test blood sugar 2 times a day, 90 days blood-glucose meter (FreeStyle Lite Meter kit) DX: E11.9, test blood sugar 2 times a day, duration 999 days digoxin 125 mcg PO DAILY doxycycline hyclate 100 mg PO Q12H lancets (FreeStyle Lancets) As directed levothyroxine 100 mcg PO DAILY lisinopril 2.5 mg PO DAILY magnesium gluconate 250 mg PO QPM metformin 850 mg PO BID 90 days metoprolol succinate ER 50 mg PO DAILY 90 days omeprazole 20 mg PO DAILY sodium hypochlorite 0.125% (Dakin's Solution) topical DAILY zinc oxide 10% 1 appl topical BID-QID PRN 30 days Tobacco use date assessed: 10/16/25 Fall risk assessment: No Falls in past year Last assessed Fall Risk: 10/16/25 Dental Screening Dental Screen Date: 10/16/25 Did you have a dental visit in the last 12 months?: Yes Did you have a dental problem in the last 6 months where you did not have access to dental care?: No Was dental information given to patient?: Patient has dentist HPI D/C from [facility] on 10/02 see notes HPI Details Pt presents to f/u ED visit. Patient went to the ED with worsening edema and shortness of breath. Chest x-ray showed pulmonary edema as well Patient was admitted for diuresis given IV Lasix. This was transitioned to Bumex as an outpatient. Followed as an outpatient by Dr. Glass, Cardiology. She had also been on metformin this was discontinued due to creatinine 1.5. Medical team recommended she be followed by Nephrology as well. Also needs ongoing wound care for abdominal surgical wound. Also needs physical therapy [facility] Medical History (Updated 10/16/25 @ 16:28 by David Cabrales MD) Osteoporosis Arthritis Diabetes High blood pressure Family History (Updated 06/07/25 @ 15:38 by Del Eastman [facility]) Mother High blood pressure High cholesterol Cardiovascular disease Father High blood pressure Asthma Social History Housing: House Patient Tobacco Use Status: Never used Tobacco e-Cigarette/Vaping Use: Never Used Second Hand Smoke Exposure: No service: No Current occupational status: retired Cognitive needs: No Hearing needs: No Vision needs: Yes Questionnaire Thrive Questionnaire Date Thrive assessed: 06/07/25 I am a: Patient What is your living situation today?: I have a steady place to live Within the past 12 months, did the food you bought not last and you didn't have the money to get more?: Never true Within the past 12 months, did you worry whether your food would run out before you got money to buy more?: Never true Do you have trouble paying for medicines?: No Do you have trouble getting transportation to medical appointments?: No Do you have trouble paying your heating and electricity bill?: No Do you have trouble taking care of your child, family member or friend?: I choose not to answer this question Do you have trouble with day-to-day activities such as bathing, preparing meals, shopping, managing finances, etc.?: I choose not to answer this question Are you currently unemployed and looking for a job?: No Are you interested in more education?: No Please select the resources that you would like help with: None Currently or been in a relationship where the following occur: No concerns reported THRIVE Score: 0 SANGEETA-7 AMB Questionnaire SANGEETA-7 Date SANGEETA - 7 assessed: 06/07/25 Source: Developed by Drs. Dorian Sanchez, Gloria Peraza, Rahul Dumont and colleagues, with an educational racheal from [employer]. Review of Systems Const Denies chills, Denies fatigue, Denies fever(s), Denies headache(s) and Denies weakness ENT Denies dizziness and Denies headache(s) Card Denies dyspnea Resp Denies cough, Denies dyspnea, Denies wheezing and Denies other (shortness of breath) Musc Denies numbness and Denies tingling Neuro Denies dizziness, Denies headache(s), Denies numbness, Denies tingling and Denies weakness Psych Denies anxiety and Denies depression Endo Denies fatigue Aller/Immun Denies wheezing Physical exam (Primary Care) Vital Signs: Last Vital Signs Temp 97.2 F 10/16/25 15:34 Pulse 72 10/16/25 15:34 Resp 12 10/16/25 15:34 BP 99/66 10/16/25 15:34 Pulse Ox 96 10/16/25 15:34 Oxygen Delivery Method Room Air 10/16/25 15:34 Tobacco/Smoking Status: Tobacco use Status Tobacco use date assessed 10/16/25 10/16/25 15:36 Patient Tobacco Use Status Never used Tobacco 10/16/25 15:36 e-Cigarette/Vaping Use Never Used 10/16/25 15:36 Thrive Assessment: Date of Thrive Assessment Date Thrive assessed 06/07/25 10/16/25 15:36 Currently or been in a relationship where the following occur: No concerns reported Const General: well developed; No acute distress Nutritional Appearance: well nourished Orientation/consciousness: patient oriented x3 HENMT Head: Yes normocephalic and Yes atraumatic Eyes General: appearance normal, both eyes and all related structures Pupils: Equal, round and reactive pupils present EOM: EOMs intact bilaterally Resp Effort & Inspection: normal respiratory effort Neuro General: patient oriented x3 and No gait normal Cranial nerves: Yes Equal, round and reactive pupils present Gait exam (Neuro): gait abnormal and Assisted gait required Gait assisted method: wheelchair bound Psych Affect: normal affect Coding Level of Care Code Est Pt Level 4 (50362) Diagnoses Surgical wound present T14.8XXA Shortness of breath R06.02 Edema R60.9 CHF (congestive heart failure) I50.9 CKD (chronic kidney disease) N18.9 Assessment & Plan Assessment & Plan (1) Surgical wound present: Code(s): T14.8XXA - Other injury of unspecified body region, initial encounter Category: Medical (2) Shortness of breath: Code(s): R06.02 - Shortness of breath Category: Medical (3) Edema: Code(s): R60.9 - Edema, unspecified Category: Medical (4) CHF (congestive heart failure): Code(s): I50.9 - Heart failure, unspecified Category: Medical (5) CKD (chronic kidney disease): Code(s): N18.9 - Chronic kidney disease, unspecified Category: Medical Plan Patient went to the ED with worsening edema and shortness of breath. Chest x-ray showed pulmonary edema as well Patient was admitted for diuresis given IV Lasix. This was transitioned to Bumex as an outpatient. Followed as an outpatient by Dr. Glass, Cardiology. Will check BNP prior to follow-up visit Start Bumex as recommended. She will take 2 mg q.a.m. Will check renal function as well She had also been on metformin this was discontinued due to creatinine 1.5. Medical team recommended she be followed by Nephrology as well. Referred Also needs ongoing wound care for abdominal surgical wound. Patient gets dressing changes by her visiting nurse Also needs physical therapy. Patient was ambulating prior to her hospitalization. Now is in a wheelchair. Start physical therapy at home with visiting nurse Orders: [facility]errals [facility] Referral I50.9 - Heart failure, unspecified, R29.898 - Other symptoms and signs involving the musculoskeletal system, R60.9 - Edema, unspecified, T14.8XXA - Other injury of unspecified body region, initial encounter Nephrology Referral N18.9 - Chronic kidney disease, unspecified, R60.9 - Ed shan, unspecified Medications: New magnesium gluconate 12.5 mg PO BID 60 tabs 2RF 30 days bumetanide 2 mg PO QAM 30 tabs 0RF 30 days
[2025-10-16 15:34] VITALS: BP 99/66; PULSE 72; RESP 12; TEMP 36.2; O2SAT 96
--- OUTSIDE RECORDS SUMMARY | 2025-10-17 00:27 | XMS_ITS | Data Portability ---
Author Organization [facility], Main Office Address [address] [place] [address] Care Team Providers Care Hotel Controller Name Role Phone [facility] [employer] [employer] [facility] [employer] OTHER NATALIIA FUENTES Primary Care Provider [phone] Assessment Encounter Date Assessment Date Assessment LastModified by Organization Details LastModified Time 02/14/2025 02/14/2025 Labs 3: Na 133-K 3.4-bun 23-Cr 0.9-wbc 10.8-hgb 9.6-hct 29.3-plt 447 [email or web address] Not available 02/14/2025 11:20:55 02/20/2025 02/20/2025 Labs 3: Na 133-K 3.4-bun 23-Cr 0.9-wbc 10.8-hgb 9.6-hct 29.3-plt 447 [email or web address] Not available 02/20/2025 09:42:42 03/03/2025 03/03/2025 Labs 01/15: Na 133-K 3.4-bun 23-Cr 0.9-wbc 10.8-hgb 9.6-hct 29.3-plt 447 [email or web address] Not available 03/03/2025 09:37:32 Plan of Treatment Reminders Order Date Submit Date Provider Last Modified By Organization Details Last Modified Time Details Appointments None record ed. Lab None record ed. Referral None record ed. Procedures None record ed. Surgeries None record ed. Imaging None record ed. Medication Orders None record ed. Patient TargetsNo targets recorded. Patient InstructionsNo instructions recorded. Reason for Referral None Reported. Problems Name Problem SNOMED Code Status Onset Date Resolution Date Notes Provider Name and Address Organization Details Recorded Time Asthenia 41060589 Active 2024 Not Available [facility] 5 13:56:51 Atrial fibrillation 83239528 Active 2024 Not Available [facility] 5 10:56:17 Hypothyroidis m 86251255 Active 2024 Not Available [facility] 5 13:58:29 Diastolic heart failure 476405047 Active 2024 Not Available [facility] 5 13:59:00 Hyperlipidemi a 24740330 Active 2024 Not Available [facility] 5 13:59:31 Hypoxemia 742281152 Active 2024 Not Available [facility] 14:00:02 Type 2 diabetes mellitus without complication 643368330 Active 2024 Not Available [facility] 5 14:00:33 Chronic ulcer of back 616475036 Active 2024 Not Available [facility] 5 10:57:43 Fall Active 2024 Not Available [facility] 5 10:57:02 Gastroesophag eal reflux disease without esophagitis 791362402 Active 2024 Not Available [facility] 5 11:27:29 Peripheral vascular disease 026902489 Active 2024 Not Available [facility] 5 11:27:31 Body mass index 40+ - severely obese 891115674 Active 2024 Not Available [facility] 5 11:28:43 Muscle weakness 86133584 Active 2024 Not Available [facility] 5 10:58:25 Unsteady when standing 716561978 Active 2024 Not Available [facility] 5 10:59:06 Abnormal posture 70840901 Active 2024 Not Available [facility] 5 14:38:41 Chronic ulcer of sacral region 073196296 Active 2024 Mary Alice Red MD [address] [facility] [address] [facility], [address], [place], [address] , [facility] 5 22:20:37 Essential hypertension 29717720 Active 2024 Mary Alice Red MD [address] [facility], [address], [place], [address] , [facility] 5 07:51:50 Problem Notes None recorded. Medical Equipment None Reported. Allergies Allergen ID Allergen Name Allergen Category Reaction Reaction Severity Criticality Documentation Date Start Date Code Code System Note Provider Name and Address Organization Details Recorded Time 28163 latex environme nt,medica tion Not available Not available Not available 01/17/20252024 69584 91 RxNorm Not Available [facility] 13:56:31 Medications Name Sig Start Date Stop Date Status Note LastModified by Organization Details LastModified Time L-Thyroxine Sodium 100 mcg tablet Give 1 tablet by mouth in the morning on an empty stomach, at least 30 minutes before food. Do not give within 4 hours of iron or calcium avoid aluminum containing antacids, and MVI w min 2024 active Not Available Not Available Not Avai lable atorvastatin 40 mg tablet Give 1 tablet by mouth at bedtime 2024 active Not Available Not Available Not Avai lable Prinivil 5 mg tablet Give 1 tablet by mouth one time a day 2024 active Not Available Not Available Not Avai lable Bumex 1 mg tablet Give 2 tablet by mouth in the morning for CHF 2024 active Not Available Not Available Not Avai lable metformin 850 mg tablet Give 1 tablet by mouth two times a day 2024 active Not Available Not Available Not Avai lable metoprolol tartrate 50 mg tablet Give 1 tablet by mouth one time a day 2024 active Not Available Not Available Not Avai lable digoxin 125 mcg (0.125 mg) tablet Give 1 tablet by mouth one time a day Separate from antacids and metamucil by at least 1 hour 2024 active Not Available Not Available Not Avai lable Laxative (sennosides) 8.6 mg tablet Give 1 tablet by mouth every 24 hours as needed for Constipatio n 2024 active Not Available Not Available Not Avai lable omeprazole magnesium 20 mg tablet,delay ed release Give 1 tablet by mouth one time a day for GERD 2024 active Not Available Not Available Not Avai lable Child Mucus Relief Expectorant 100 mg/5 mL oral liquid Give 10 ml by mouth every 4 hours as needed for cough 2024 active Not Available Not Available Not Avai lable sodium phosphates 19 gram-7 gram/197 mL enema Insert 1 unit rectally every 24 hours as needed for Constipatio n Use only if Bisacodyl Suppository is ineffective 2024 active Not Available Not Available Not Avai lable apixaban 5 mg tablet Give 1 tablet by mouth two times a day 2024 active Not Available Not Available Not Avai lable lidocaine 5 % topical patch-adhesi ve silicone combo pack Apply to left hip topically one time a day for Pain Management Apply for only 12 hours in a 24 hour period. May dose = 3 patches. External use only. 2024 active Not Available Not Available Not Avai lable OneLAX Bisacodyl 10 mg rectal suppository Insert 1 suppository rectally every 24 hours as needed for constipatio n Use if Senna is Ineffective 2024 active Not Available Not Available Not Avai lable Aleve (diclofenac) 1 % topical gel Apply to Left Hip topically every day and evening shift for pain 2024 active Not Available Not Available Not Avai lable Vitals Date Recorded Body height Body mass index (BMI) Body weight Heart rate Respiratory rate Body temperature Oxygen saturation Systolic And Diastolic Provider Name and Address Organization Details Last Updated DateTime 5 152.4 cm 33.7 kg/m2 05540.3 2 g 87 /min 18 /min 97.7 [degF] 99 % 134/63 mm[Hg] DAVEY SANDOVAL, OPAL [address] [facility], [address], [place], [address], [place] [facility] 5 12:48:56 Social History Question Answer Notes LastModified by Organizat ion Details LastModified Time Tobacco Smoking Status Never Smoker SHONA MIRANDA [address] [facility] [address] [facility], [address], [place], [address], [facility] 01/19/2025 02:19:00 Do You Have An Advance Directive? Yes Information not available 01/19/2025 What Is Your Code Status? Full Code Information not available 01/19/2025 Sex: Unknown Functional Status Question Answer Note LastModified by Organization D etails LastModified Time Do you or have you ever used any other forms of tobacco or nicotine? No Information not available 01/19/2025 What is your level of alcohol consumption? None Information not available 01/19/2025 Mental Status None recorded. Family History Relationship Description Onset Age of this Age Resolved Age Notes LastModified by Organization Details LastModified Time Father Hypertensive disorder Not available 2024 02:21:02 Mother Hypertensive disorder Not available 2024 02:21:02 Medical History No medical history recorded. Gynecological HistoryNo gynecological history recorded. Obstetrics History GPAL:G 0 P 0 0 0 0 Immunizations Vaccine Type Date Status Note Provider Nam e and Address Organization Details Recorded Time Respiratory syncytial virus (RSV) MAB, unspecified 3 completed Timmy Lowry [facility] 01/18/2025 15:58:42 Td(adult) unspecified formulation 3 completed Timmy Lowry [facility] 01/18/2025 15:58:52 Pneumococcal conjugate PCV 13 3 completed Timmy Lowry [facility] 01/18/2025 15:59:04 influenza, unspecified formulation 0 completed Timmy Lowry [facility] 01/18/2025 15:59:20 influenza, unspecified formulation 1 completed Timmy Lowry [facility] 01/18/2025 15:59:38 influenza, unspecified formulation 2 completed Timmy Lowry [facility] 01/18/2025 15:59:43 influenza, unspecified formulation 3 completed Timmy Lowry [facility] 01/18/2025 15:59:48 influenza, unspecified formulation 4 completed Timmy Zuleta-Piña null, [facility] 01/18/2025 15:59:53 SARS-COV-2 (COVID-19) vaccine, UNSPECIFIED 1 completed Timmy Zuleta-Piña null, [facility] 01/18/2025 16:00:07 SARS-COV-2 (COVID-19) vaccine, UNSPECIFIED 1 completed Timmy Zuleta-Piña null, [facility] 01/18/2025 16:00:13 SARS-COV-2 (COVID-19) vaccine, UNSPECIFIED 1 completed Timmy Zuleta-Piña null, [facility] 01/18/2025 16:00:18 SARS-COV-2 (COVID-19) vaccine, UNSPECIFIED 2 completed Timmy Zuleta-Piña [facility] 01/18/2025 16:00:26 SARS-COV-2 (COVID-19) vaccine, UNSPECIFIED 3 completed Timmy Zuleta-Piña null, [facility] 01/18/2025 16:00:31 SARS-COV-2 (COVID-19) vaccine, UNSPECIFIED 3 completed Timmy Song-Piña null, [facility] 01/18/2025 16:00:35 SARS-COV-2 (COVID-19) vaccine, UNSPECIFIED 4 completed Timmy Song-Piña [facility], [facility] 01/18/2025 16:00:40 Past Encounters Encounter ID Performer Location Encounter Start Date Encounter Closed Date Diagnosis/Indication Diagnosis SNOMED-CT Code Diagnosis ICD10 Code Diagnosis IMO Codes Diagnosis Note [id number] SHONA MIRANDA [address] [place] [address] 01/18/2025 11:06:23 01/19/2025 11:27:15 Atrial fibrillation 33101889 I48.91 cont metoprolol , digoxin and eliquis Diastolic heart failure 858983933 I50.30 cont bumex Type 2 lizandro betes mellitus without complication 902305538 E11.9 non insulin cintrolcon t metformin 850 mg BIDmonitor accucheck prn Gastroesop hageal reflux disease without esophagitis 035302841 K21.9 cont omeprazole 20 mg Hypothyroidism 86552067 E03.9 cont. synthroidm onitor TSH prn Chronic ul cer of sacral region 430436713 L98.429 unstageabl ehas been non compliant with f/u wound clinic appt.had wound vac now removed and recommende d to be evaluated by wound clinic or surgery forpossibl e tracking channel.wo und eval by wound NPfollow up with wound clinic fall W19.XXXA PT/OT eval and TxMorse [id number] [place] [address] 01/20/2025 08:25:06 01/26/2025 14:53:58 Chronic ulcer of sacral region 328656301 L98.429 unstageabl ehas been non compliant with f/u wound clinic appt = educated on the importance had wound vac now removed and recommende d to be evaluated by wound clinic or surgery forpossibl e tracking channel.mo nitor pain and ss infectiono n air mattressda rae dressing changes per orders in PCCbeing followed by in house wound NPneeds f/up with wound clinic = will ask nursing to schedule Atrial fibrillation 4943 6004 I48.91 Rate is controlled cont metoprolol 50 mg dailycont digoxin 125 mcg dailycont eliquis 5 mg bidmonitor HR and bleeding risk Diastolic heart failure 611064620 I50.30 on bumex 1 mg bidmetopro lol 50 mg dailyconsi dimas pipe/arb for GDMT of CM if bp allowsmoni tor wts thu frilabs weekly on thu Type 2 lizandro betes mellitus without complication 036048636 E11.9 very well controlled cont metformin 850 mg BIDcan decrease accuchecks to bid once weekly on fall W19.XXXA continue PT OTfall precaution sdeconditi oned and weakMorse 25 Coarse res piratory crackles 67243965 R09.89 down in bases, no cough or sob, 90% on RAencourag e pt to get oob for mealscough and deep breathprov trino incentive spirometer labs thu, will monitor [id number] [place], [place] [address] 01/24/2025 10:00:46 01/26/2025 03:50:09 Chronic ulcer of sacral region 585793341 L98.429 unstageabl e, nursing reports they are healing with ss infectionh ad wound vac now removed and recommende d to be evaluated by wound clinic or surgery forpossibl e tracking channelcon tinue to monitor pain and ss infectiono n air mattressda rae dressing changes per orders in PCCbeing followed by in house wound NPfollowed by [facility] wound clinic = will need apt on dc Atrial fibrillation 4943 6004 I48.91 Rate is controlled cont metoprolol 50 mg dailycont digoxin 125 mcg dailycont eliquis 5 mg bidmonitor HR and bleeding risk Diastolic heart failure 680658878 I50.30 no recent weight, kidneys and lytes stable, euvolemic on examcontin ue bumex 1 mg bidmetopro lol 50 mg dailyconsi dimas pipe/arb for GDMT of CM if bp allowsmoni tor wts thu = asked nursing to obtain (last weight from 01/19)labs weekly on thu Type 2 lizandro betes mellitus without complication 664804765 E11.9 very well controlled cont metformin 850 mg BIDaccuche cks bid once weekly on fall W19.XXXA continue PT OTfall precaution sremains deconditio jennifer and weak but actively participat ingMorse 25 Coarse res piratory crackles 07055589 R09.89 down in bases, no cough or sob, 90% on RAcrackles are improvings itting up in chairencou rages cough and deep breathing Pain of le ft hip joint 8856773978 16969 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 Atrial fibrillation 4943 6004 I48.0 Rate in good control on meds as above and digoxin 125 mcg qd.Continu e eliquis 5 mg BID for AC.Monitor HR and bleeding risk. Diastolic heart failure 536181300 I50.32 Appears euvolemic. Continue meds as above.Nayely tor resp. status, fluid status, wts and labs.Consi dimas PIPE/ARB for GDMT if BP remains >110/70 Type 2 lizandro betes mellitus without complication 685128332 E11.9 Glucose in good control since here.Last HgA1C was 6.8 in 06/2024.Con tinue metformin 850 mg BIDMonitor fingerstic ks once weekly on Mondays, monitor HgA1C as outpt. Fall R29.6 Very deconditio jennifer.Needs PT/OT for strengthen ing, balance, gait training, safety and function.C ontinue fall precaution s.Monitor for safety. Essential hypertension 35095807 I10 BP in good control since here.Henry nue metoprolol 50 mg qd and Bumex 1 mg BID.Monito r BP and labs. [id number] AMELIA MORA, MACHINE SPRAYER-C [facility] [address] [place] [address] 01/27/2025 10:05:41 01/31/2025 08:44:00 Chronic ulcer of sacral region 441651504 L98.429 unstageabl e, MACHINE SPRAYER reports they are improving with no ss infection on last rounding visitconti nue to monitor pain and ss infectionc ontinues on air mattressda rae dressing changes [facility] be followed by in house wound NPfollowed by wound clinic = will need apt on dc Atrial fibrillation 4943 6004 I48.91 Rate remains controlled cont metoprolol 50 mg dailycont digoxin 125 mcg dailycont eliquis 5 mg bidmonitor HR and bleeding risk Diastolic heart failure 987895493 I50.30 wt trending down, euvolemic on examcontin ue bumex 1 mg bidmetopro lol 50 mg dailyconsi dimas pipe/arb for GDMT of CM if bp allowsmoni tor wts thu to trendlabs weekly on thu Type 2 lizandro betes mellitus without complication 153059767 E11.9 very well controlled cont metformin 850 mg BIDaccuche cks bid once weekly on thu Pain of le ft hip joint 8820770345 66014 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 having c/o L hip painlimite d with therapy dt painstarte d lidocaine patch without good affectwill order XRAY to rule out anything acutestart tylenol scheduled 650 mg tidif XRAY is neg and pain continues can consult ortho for injections [id number] DAVEY SANDOVAL, TRANSITIONS RN CARE COORDINATOR [facility] [address] [place] [address] 02/01/2025 08:27:22 02/02/2025 15:00:57 Chronic ulcer of sacral region 207034356 L98.429 unstageabl e, MACHINE SPRAYER reports they are improving with no ss infection on last rounding visitconti nue to monitor pain and ss infectionc ontinues on air mattressda rae dressing changes per orders in PCCcontinu es to be followed by in house wound NPfollowed by wound clinic = will need apt on dc Atrial fibrillation 4943 6004 I48.91 Rate remains controlled cont metoprolol 50 mg dailycont digoxin 125 mcg dailycont eliquis 5 mg bid Hgb stable.mon itor HR and bleeding risk Diastolic heart failure 406316272 I50.30 wt trending down, euvolemic on examcontin ue bumex 1 mg bidmetopro lol 50 mg dailyconsi dimas pipe/arb for GDMT of CM if bp allows Bun slightly increased. 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 having c/o L hip painlimite d with therapy dt painstarte d lidocaine patch without good affectwill order XRAY to rule out anything acutestart tylenol scheduled 650 mg tidif XRAY is neg and pain continues can consult ortho for injections [id number] [place] [address] 02/01/2025 10:42:20 02/02/2025 14:58:45 Diastolic heart failure 425257724 I50.30 wt trending down as of 01/25, euvolemic on examcontin ue bumex 1 mg bidcontinu e metoprolol 50 mg dailystart lisinopril 5 mg daily for GDMT of CM (goal to trend up to 20 mg if BP allows)mon itor wts thu to trendlabs weekly on thu Pain of le ft hip joint 3260932115 53211 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, XRAY neg for acute findingsst ill having c/o L hip paintyleno l scheduled and lidocaine have no affect on painnow able to tolerate therapy, reports pushing herself through dc lidocaine and go back to tylenol prnstart diclofenac ointment to L hip bidwill consult ortho for injections [id number] [place] [address] 02/03/2025 09:50:23 02/06/2025 08:28:50 Diastolic heart failure 182998764 I50.30 wt trending down as of 01/25, euvolemic on examcontin ue bumex 1 mg bidcontinu e metoprolol 50 mg dailyconti nue lisinopril 5 mg daily for GDMT of CM (started 02/02 goal to trend up to 20 mg if BP allows)mon itor wts thu to trendlabs weekly on thu Pain of le ft hip joint 4841939469 57752 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, XRAY neg for acute findingsst ill having c/o L hip painstart tylenol 1000 mg TID = agreeable to start hererefusi ng narcotics and lidocaines tart diclofenac ointment to L hip bidpending ortho apt for possible injections Chronic ulcer of back 71 8708912 L98.429 wound to coccyx, heel, and gluteal foldsfollo wed by the wound NPcontinue dressing changes her orders in [facility] for ss infection *XRAY of sacrum/ coccyx on 02/01 neg for osteo [id number] [place] [address] 02/06/2025 10:13:10 2025 14:02:20 Diastolic heart failure 738838237 I50.30 euvolemic on examcontin ue bumex 1 mg bidcontinu e metoprolol 50 mg dailyincre ase to lisinopril 10 mg daily for GDMT of CM (restarted on 02/02 goal to trend up to 20 mg if BP allows)mon itor wts thu to trend, last wt was on 01/25labs weekly on thu, pending today Pain of le ft hip joint 7954918743 81422 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, XRAY neg for acute findingsre ports much better pain controll on scheduled tylenol and ointmentwa s refusing tylenol, narcs, and lidocaine; after discussion agreeable to scheduled tylenolcon tinue tylenol 1000 mg TIDcontinu e diclofenac ointment to L hip bidpending ortho apt for possible injections = questionin g if she still needs itwill monitor pain and progress with therapy Chronic ulcer of back 71 6793200 L98.429 wound to coccyx, heel, and gluteal foldsfollo wed by the wound NPcontinue dressing changes her orders in PCCmonitor for ss infection; fevers, wbc *XRAY of sacrum/ coccyx on 02/01 neg for osteo [id number] [place] [address] 02/09/2025 12:38:14 02/09/2025 14:56:59 Diastolic heart failure 525926885 I50.30 up 7 lbs [place] few daysmissin g doses of bumex dt pharmacy supplywill monitor wts and fluid status back on bumexconti nue bumex 1 mg bidcontinu e metoprolol 50 mg dailyconti nue lisinopril 10 mg daily for GDMT of CM (restarted on 02/02 goal to trend up to 20 mg if BP allows)mon itor wts thu to trendlabs weekly on mon Pain of le ft hip joint 8474932512 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, XRAY neg for acute findingsre ports much better pain controll on scheduled tylenol and ointmentco ntinue tylenol 1000 mg TIDcontinu e diclofenac ointment to L hip bidpending ortho apt for possible injections = nursing to make aptwill monitor progress with therapy, walked down the [place] today Chronic ulcer of back 71 3181283 L98.429 wound to coccyx, heel, and gluteal foldsfollo wed by the wound NPcontinue dressing [facility]; fevers, wbc *XRAY of sacrum/ coccyx on 02/01 neg for osteo Peripheral vascular disease 447475648 I73.9 h/owith woundsapt with vascular today [id number] [place], [place] [address] 02/13/2025 09:15:51 02/13/2025 11:31:57 Diastolic heart failure 877595207 I50.30 up 7 lbs [place] few days, no weight since, of note missed doses of bumex dt pharm and pt refusalask ed nursing to get weight todaywill monitor wts and fluid status back on bumexchang e to bumex 2 mg daily (from 1 mg bid), refusing afternoon dose dt urination in the nightconti nue metoprolol 50 mg dailyconti nue lisinopril 5 mg daily for GDMT of CMmonitor wts thu wed thu to trendlabs weekly on thu, kidneys/ lytes stable today Pain of le ft hip joint 3361131318 54900 M25.552 chronic dt OApain better controlled continue tylenol 1000 mg TIDcontinu e diclofenac ointment to L hip bidpending ortho apt for possible injections will monitor progress with therapy Chronic ulcer of back 71 9662198 L98.429 wound to coccyx, heel, and gluteal foldsfollo wed by the wound NPcontinue dressing changes [facility]; fevers, wbc Peripheral vascular disease 692040261 I73.9 h/owith woundsseen by vascular on thuno changes in medsf/up with vascular in [id number] [place] [address] 02/14/2025 08:30:05 02/16/2025 19:50:51 Diastolic heart failure 211204400 I50.30 up 7 lbs [place] few days, no weight since, of note missed doses of bumex dt pharm and pt refusalask ed nursing to get weight todaywill monitor wts and fluid status back on bumexconti nue bumex 2 mg dailyconti nue metoprolol 50 mg dailyconti nue lisinopril 5 mg daily for GDMT of CMmonitor wts thu to trendlabs weekly on thu, kidneys/ lytes stable today Pain of le ft hip joint 9139596921 66370 M25.552 chronic dt OApain better controlled continue tylenol 1000 mg TIDcontinu e diclofenac ointment to L hip bidpending ortho apt for possible injections will monitor progress with therapy Chronic ulcer of back 71 4941205 L98.429 wound to coccyx, heel, and gluteal foldsfollo wed by the wound NPcontinue dressing changes her orders in [facility] for ss infection; fevers, wbc Peripheral vascular disease 335404291 I73.9 h/owith woundsseen by vascular on thuno changes in medsf/up with vascular in [id number] [place] [address] 02/20/2025 09:28:45 02/22/2025 08:59:40 Diastolic heart failure [id number] I50.30 up 6 lbs againwas refusing evening doses of lasixconti nue bumex 2 mg daily (recently changed from 1 mg bid)contin ue metoprolol 50 mg dailyconti nue lisinopril 5 mg daily for GDMT of CMmonitor wts thu to [facility] pending today Pain of le ft hip joint [id number] 47826 M25.552 chronic dt OApain better controlled continue tylenol 1000 mg TIDcontinu e diclofenac ointment to L hip bidpending ortho apt for possible injections will monitor progress with therapy Chronic ulcer of back 71 7832135 L98.429 wound to coccyx, heel, and gluteal foldsfollo wed by the wound NPcontinue dressing changes her orders in [facility] for ss infection; fevers, wbc Peripheral vascular disease 362013295 I73.9 h/owith woundsseen by vascular on frino changes in medsf/up with vascular in 6 weeks Acute cough [id number] [id number] R05.7 [id number] no sobstart tussin prn [id number] AMELIA MORA NP-C [place] [address] [place] [address] 02/22/2025 11:23:54 02/28/2025 09:24:03 Diastolic heart failure [id number] I50.30 euvolemic on examwt has trended up some but its within 2 lbs of her baseline on admitconti nue bumex 2 mg daily (recently changed from 1 mg bid)contin ue metoprolol 50 mg dailyconti nue lisinopril 5 mg daily for GDMT of CMmonitor wts thu fri to [facility] stable, repeat weekly Pain of le ft hip joint [id number] 59119 M25.552 chronic dt OApain better controlled continue tylenol 1000 mg TIDcontinu e diclofenac ointment to L hip bidpending ortho apt for possible injections will monitor progress with therapy Chronic ulcer of back 71 5465508 L98.429 wound to coccyx, heel, and gluteal foldsfollo wed by the wound NPcontinue dressing changes her orders in [facility] for ss infection; fevers, wbc Peripheral vascular disease 719852212 I73.9 h/owith woundsfoll owed by ortho, seen last week with no changes madef/up with vascular in 6 weeks Acute cough [id number] R05.7 [id number] still has a slight cough, reportedly improving slowlyno other sslikely viralconti nue tussin prn Asthenia 40209249 R53.1 96030 continue PT OTmaking good progressus es wc for all ADLsuses a walker with therapyPT working on getting her [facility] [id number] DAVEY SANDOVAL, OPAL GENAO [address] [place] [address] 02/28/2025 12:31:00 03/08/2025 12:59:40 Diastolic heart failure [id number] I50.30 euvolemic on examwt has been stable, within 2 lbs of her baseline on admitconti nue bumex 2 mg daily (recently changed from 1 mg bid)contin ue metoprolol 50 mg dailyconti nue lisinopril 5 mg daily for GDMT of CMmonitor wts mon thu fri to [facility] stable, repeat weekly Pain of le ft hip joint [id number] 96367 M25.552 chronic dt OApain better controlled continue tylenol 1000 mg TIDcontinu e diclofenac ointment to L hip bidpending ortho apt for possible injections doing well with therapy Chronic ulcer of back 71 7756331 L98.429 wound to coccyx, heel, and gluteal foldsimpro ving per nursing, reported less drainage.f ollowed by the wound teamcontin ue dressing changes her orders in [facility] for ss infection; fevers, wbc Peripheral vascular disease 117930593 I73.9 h/owith woundsf/up with vascular in 6 weeks Asthenia 75170690 R53.1 23879 continue PT OTmaking good progressus es wc for all ADLsuses a walker with therapyPT working on getting her a wc at [facility]at tree dc probably this week. [id number] AMELIA MORA NP-C [facility] [address] [place] [address] 03/03/2025 09:11:06 03/08/2025 12:53:18 Diastolic heart failure 586824540 I50.30 euvolemic on examwt has trended up some but its within 2 lbs of her baseline on admitconti nue bumex 2 mg daily (recently changed from 1 mg bid)contin ue metoprolol 50 mg dailyconti nue lisinopril 5 mg daily for GDMT of CMmonitor wts at home and call cards for a 3 lb increasef/ up with cards Pain of le ft hip joint [id number] 11260 M25.552 chronic dt OApain better controlled continue tylenol 1000 mg TIDcontinu e diclofenac ointment to L hip bidoutpt ortho apt for possible injections f/up with pcp Chronic ulcer of back 71 9053863 L98.429 wound to coccyx, heel, and gluteal foldsdc home with servicesco ntinue dressing changesf/u p wound clinic and pcp Peripheral vascular disease 786036300 I73.9 h/owith woundsf/up with vascular in 6 weeks Acute cough [id number] R05.9 [id number] resolved with supportive care Asthenia 08602342 R53.1 95526 completed PT OTwalker and wc for ADLs at homedc with servicesf/ u with pcp Atrial fibrillation 4943 6004 I48.91 cont metoprolol , digoxin and eliquisf/u p with cards Type 2 lizandro betes mellitus without complication 703782102 E11.9 non insulin controlcon t metformin 850 mg BIDmonitor at homef/up with pcp, A1C q6mos Gastroesop hageal reflux disease without esophagitis 781395869 K21.9 cont omeprazole 20 mgf/up with pcp Hypothyroidism 79230305 E03.9 cont. synthroidm onitor TSH outpt, f/up with pcp Leukocytosis 150834623 D 72.829 751744 wbc trending up to 12.6 on 02/27no ss of infection other than mild ongoing coughstat cbc to trendif they remain elevated consider further workup Health Concerns Section Related Observation LastModified by Organization Detai ls LastModified Time None Recorded Concern Status LastModified by Organization Details LastModified Time None Recorded Advance Directives Directive Y: Payers Insurance Date Sequence Insurance Name Policy Number Policy Hernandez Covered Member ID Hernandez Member ID Guarantor Name 03/09/2025 1 [employer] - MEDICARE ADVANTAGE PLAN (MEDICARE REPLACEMENT HMO) [id number] 1 [place] [id number] Anna [place] Notes Date Note Type Note Provider Name and Address Organization Details Recorded Time 02/14/2025 text/html ROS as noted in the HPI This is a 79-year-old female being seen today for routine rounding visit. Admitted to [place] after acute care stay. Presented to ED with weakness after a fall, she had been sleeping in her wheelchair for 2 weeks by choice due to having a wound vac. She has no injuries from falls. She is unable to care for her self on her own and is here for rehab. Patient seen today walking with therapy. SHe is doing well. Her pain is controlled now. PMH persistent A-fib on Eliquis, hypertension, bradycardia, hypertension, type 2 diabetes, chronic sacral wounds, hypothyroidism. VARGAS DUBOSE [address] [facility], [address], [place], [address], [facility] 02/14/2025 11:24:39 02/20/2025 text/html ROS as noted in the HPI This is a 79-year-old female being seen today for acute rounding visit. Admitted to [place] after acute care stay. Presented to ED with weakness after a fall, she had been sleeping in her wheelchair for 2 weeks by choice due to having a wound vac. She has no injuries from falls. She is unable to care for her self on her own and is here for rehab. She continues to work with therapy. Patient was agreeable after second approach. Patient performed multiple STS from WC to RW with good hand placements/brake management at Mod I level. She appears slightly overloaded on exam. She has been urinating more. Her weight is up about 6 lbs. She had been refusing evening doses of bumex, changes doses to daily in am which she has been agreeable to. She also reports nagging cough, worse at night. PMH persistent A-fib on Eliquis, hypertension, bradycardia, hypertension, type 2 diabetes, chronic sacral wounds, hypothyroidism. VARGAS DUBOSE [address] [facility], [address], [place], [address], [employer] 02/20/2025 09:44:28 02/22/2025 text/html ROS as noted in the HPI This is a 79-year-old female being seen today for acute rounding visit. Admitted to [place] after acute care stay. Presented to ED with weakness after a fall, she had been sleeping in her wheelchair for 2 weeks by choice due to having a wound vac. She has no injuries from falls. She is unable to care for her self on her own and is here for rehab. Patients bumex dosing was changed dt evening time refusal dt urinating at night. This was done after notable wt gain of 6 lbs. To help with night time urination she was switched from bumex 1 mg bid to bumex 2 mg daily. Her wt has been trending up still. However on review this is within 2 lbs of her baseline wt on admission. SHe has no resp complaints, denies sob or orthopnea. She reports she is urinating all day long, about once per hour and denies feeling overloaded with fluids. She will likely dc home next week, therapy working on getting her a wc to use at home. PMH persistent A-fib on Eliquis, hypertension, bradycardia, hypertension, type 2 diabetes, chronic sacral wounds, hypothyroidism. LEYDI DUBOSEC [address] [facility], [address], [place], [address], [employer] 02/22/2025 11:35:26 02/28/2025 text/html ROS as noted in the HPI This is a 80-year-old female being seen today for acute rounding visit. Pt was admitted to [place] after acute care stay. Presented to ED with weakness after a fall, she had been sleeping in her wheelchair for 2 weeks by choice due to having a wound vac. She has no injuries from falls. She is unable to care for her self on her own and is here for rehab. Patients bumex dosing was changed dt evening time refusal dt urinating at night. This was done after notable wt gain of 6 lbs. To help with night time urination she was switched from bumex 1 mg bid to bumex 2 mg daily. Her wt has been stable, 172 lb yesterday. She has no resp complaints, denies sob or orthopnea. Discussed the case with nursing, reports her left buttock ulcer has improving and has much less drainage noted. No acute concerns today.On exam today, patient was sitting in her wheelchair, reading a newspaper, VSS, and NAD. Pt is alert and pleasant, reports she has been eating ok, denies sob or increased legs swelling. No concerns related to elimination. PMH persistent A-fib on Eliquis, hypertension, bradycardia, hypertension, type 2 diabetes, chronic sacral wounds, hypothyroidism. DAVEY SANDOVAL CNP [address] [facility], [address], [place], [address], [facility] 02/28/2025 13:52:54 03/03/2025 text/html ROS as noted in the HPI This is a 79-year-old female being seen today for a dischrage summary visit. Admitted to [place] after acute care stay. Presented to ED with weakness after a fall, she had been sleeping in her wheelchair for 2 weeks by choice due to having a wound vac. She has no injuries from falls. She is unable to care for her self on her own and is here for rehab. Patient now stable from a medical standpoint. She is euvolemic on exam. Her bumex dose was adjusted with good affect. She has been scheduled to f/up with ortho for chronic left hip pain and possible injections. Now that she is taking scheduled tylenol her pain is much better controlled. She is ambulating well with a walker. She will have a wc at home. At this time she is medically clear for dc home with meds and services. Discharge planned for mon. Her wbc are slightly elevated to 12.6. SHe does have a mild cough that has been ongoing, but tells me this does not feel like the times she has PNA. SHe denies any chills, fever, fatigue, muscles aches. She has no urinary sx. PMH persistent A-fib on Eliquis, hypertension, bradycardia, hypertension, type 2 diabetes, chronic sacral wounds, hypothyroidism. AMELIA MORA, MACHINE SPRAYER-C [address] [facility], [address], [place], [address], [facility] - [employer] 03/03/2025 10:05:41 OBGyn Episode No OBEpisode recorded.
--- OUTSIDE RECORDS SUMMARY | 2025-10-17 00:29 | XMS_ITS | Clinical Summary ---
Author Organization [facility] Address [address] [place] [address] Care Team Providers Care Brusher And Shearer Name Role Phone Unavailable Primary Care Provider Unavailabl e Social History Tobacco Use Types Packs/Day Years Used Date Smoking Tobacco: Never Assessed Comments Unknown Sex and Gender Information Value Date Recorded Sex Assigned at Not on file Legal Sex Female 2:40 PM EDT Gender Identity Not on file Sexual Orientation Not on file Plan of Treatment Health Maintenance Due Date Last Done Comments Advance Care Planning 1945 Hepatitis C Virus Screening 1945 DTaP/Tdap/Td Vaccines (1 - Tdap) 1966 Pneumococcal Vaccines 50+ (1 of 1 - PCV) 1997 Zoster (Shingles) Vaccine (1 of 2) 1997 RSV Vaccine 50 years and old er and Patients (1 - 1-dose 75+ series) 2022 COVID-19 Vaccine ( - 2023-2 5 season) 2025 Hepatitis B Vaccines Aged Out No long er eligible based on patient's age to complete this topic
--- OUTSIDE RECORDS SUMMARY | 2025-10-17 00:29 | XMS_ITS | Clinical Summary ---
Author Organization [facility] Prior to 04/08/[address] [place] [id number] Care Team Providers Care Squadron Worker Name Role Phone Unavailable Primary Care Provider Unavailabl e Social History Tobacco Use Types Packs/Day Years Used Date Smoking Tobacco: Never Assessed Sex and Gender Information Value Date Recorded Sex Assigned at Not on file Gender Identity Not on file Sexual Orientation Not on file Plan of Treatment Not on file
== END 2025-10-16 16:36 | disposition home or self-care (01) ==
LOC: HO.HMCFM 15:02
PROVIDERS: PCP Family Medicine; Visit Provider Family Medicine
DX: T14.8XXA Other injury of unspecified body region, initial encounter (principal); R06.02 Shortness of breath; R60.9 Edema, unspecified; I50.9 Heart failure, unspecified; N18.9 Chronic kidney disease, unspecified